=== PATIENT | female | born 1985 | race Hispanic/Latino ===

== ENCOUNTER 2022-06-07 19:40 | Emergency (ER) | payer BC, SELFPAY ==
--- NOTE | ~2022-06-07 | US_ITS ---
Pelvic ultrasound. Clinical History: First trimester , pelvic pain Technique: Realtime transabdominal and transvaginal scanning of the pelvis was performed. Color flow Doppler and Doppler spectral analysis were performed. Findings: The uterus is anteverted. The endometrial stripe has a thickness of 22 mm. No intrauterine gestational sac is identified. Possible heterogeneous fluid in the cervix. The right ovary measures 2.5 x 2.4 x 2.0 cm. No significant right ovarian or adnexal mass is seen. The left ovary is not visualized. No significant left ovarian or adnexal mass is seen. There is no evidence of free fluid in the cul de sac. Impression: Positive test without intrauterine gestation. Differential diagnosis includes early normal , spontaneous , or nonvisualized ectopic . Correlate clinically. Continued follow up with serial beta hCG, and repeat ultrasound as warranted, is advised. Reviewed, dictated and finalized at [facility]. PHALOGRAPHER Impression: Positive test without intrauterine gestation. Differential diagnosis includes early normal , spontaneous , or nonvisualized ectopic . Correlate clinically. Continued follow up with serial beta hCG, and repeat ultrasound as warranted, is advised.
[2022-06-07 20:05] VITALS: BP 170/90; PULSE 83; RESP 20; TEMP 36.4; O2SAT 100
[2022-06-07 20:54] LABS: Basophils Percent Auto 0.4 % (0.2-1.2); Eosinophils Absolute Auto 0.7 K/mm3 (0-0.3); Eosinophils Percent Auto 6.9 % (0-4.4); Hematocrit 39.9 % (37.0-47.0); Hemoglobin 13.7 g/dL (12.0-15.0); Immature Granulocyte Absolute 0.05 K/mm3 (0.00-0.031); Immature Granulocyte Percent A 0.5 % (0-0.5); Lymphocytes Absolute Auto 2.51 K/mm3 (0.9-3.2); Lymphocytes Percent Auto 25.6 % (18.3-44.2); Mean Corpuscular HGB Conc 34.3 g/dl (32-36); Mean Corpuscular Hemoglobin 32.1 pg (26-34); Mean Corpuscular Volume 93.4 fl (80-100); Mean Platelet Volume 9.7 fl (7.4-10.4); Monocytes Absolute Auto 0.7 K/mm3 (0.1-0.6); Monocytes Percent Auto 7.1 % (2.6-8.5); Neutrophils Absolute Auto 5.8 K/mm3 (1.3-6.7); Neutrophils Percent Auto 59.5 % (45.5-73.1); Platelet Count Result 305 k/mm3 (150-375); Red Blood Count 4.27 M/mm3 (4.2-5.4); Red Cell Distribution Width 12.2 % (11.5-14.5); White Blood Count 9.8 K/mm3 (4.5-10.0)
--- NOTE | 2022-06-08 00:30 | PC.NURSE ---
pt states she is approx 6-7 weeks preg and his having spotting since yesterday but worse today. states she had abd pain and lower back pain block captain but has now subsided. a0
[2022-06-08 01:30] VITALS: BP 146/85; PULSE 76; RESP 16; O2SAT 98
--- NOTE | 2022-06-08 01:48 | ED.GENADULT ---
HPI - General Adult General Chief complaint: Vaginal Bleeding Stated complaint: 7 weeks preg, vaginal bleeding Time Seen by Provider: 06/08/22 00:37 History of Present Illness HPI narrative: Patient 36-year-old female who presents the emergency department with chief complaint of vaginal bleeding. Patient reports that she is approximately 6 to 8 weeks and reported that she started having vaginal bleeding. The patient states she has cramping throughout the abdomen reports her bleeding started yesterday but has gradually worsened today the patient reports no clots and no passage of tissue. Patient reports this is her fourth at the 3 others being full-term deliveries. Related Data Allergies Allergy/AdvReac Type Severity Reaction Status Date / Time No Known Allergies Allergy Unverified 03/13/14 22:24 Review of Systems Review of Systems: A 10 system review of systems was completed on the patient and is negative except for what is stated in the HPI. Nursing and ancillary documentation was reviewed. Exam Narrative: GENERAL: Well-appearing, well-nourished, and in no acute distress. HEAD: Normocephalic, atraumatic. EYES: PERRLA and EOMI. ENT: Nares clear, no rhinorrhea or epistaxis. Mucous membranes moist. NECK: Supple. CHEST: Clear to auscultation. No respiratory distress. HEART: Regular rate and rhythm. No murmur heard. Normal peripheral pulses. ABDOMEN: Soft, nontender, nondistended, normal active bowel sounds. EXTREMITIES: Normal range of motion. No edema. SKIN: Warm, dry, no rash. NEURO: No focal deficits. Alert and oriented x3. PSYCH: Normal mood and affect. Course Vital Signs Vital signs: Vital Signs Temperature 36.4 C L 06/07/22 20:05 Pulse Rate 83 06/07/22 20:05 Respiratory Rate 20 06/07/22 20:05 Blood Pressure 170/90 H 06/07/22 20:05 Pulse Oximetry 100 06/07/22 20:05 Temperature 36.4 C L 06/07/22 20:05 Pulse Rate 83 06/07/22 20:05 Respiratory Rate 20 06/07/22 20:05 Blood Pressure 170/90 H 06/07/22 20:05 Pulse Oximetry 100 06/07/22 20:05 Medical Decision Making [facility] Narrative Medical decision making narrative: Differential diagnosis includes threatened AB, ectopic, missed AB Laboratory studies were obtained which showed an Rh+ blood test quantitative hCG was 1047.4 hemoglobin is 13.7. Ultrasound has been ordered to rule out for ectopic . Ultrasound showed thickened endometrium with no intrauterine noted. There was no obvious ectopic on the CT scan but follow-up with serial hCGs was recommended Vital Signs Vital Signs: Vital Signs Temperature 36.4 C L 06/07/22 20:05 Pulse Rate 83 06/07/22 20:05 Respiratory Rate 20 06/07/22 20:05 Blood Pressure 170/90 H 06/07/22 20:05 Pulse Oximetry 100 06/07/22 20:05 Temperature 36.4 C L 06/07/22 20:05 Pulse Rate 83 06/07/22 20:05 Respiratory Rate 20 06/07/22 20:05 Blood Pressure 170/90 H 06/07/22 20:05 Pulse Oximetry 100 06/07/22 20:05 Lab Data 06/07/22 20:38 Labs: Lab Results 06/07/22 06/07/22 06/07/22 Range/Units 20:37 20:37 20:38 WBC 9.8 (4.5-10.0) K/mm3 RBC 4.27 (4.2-5.4) M/mm3 Hgb 13.7 (12.0-15.0) g/dL Hct 39.9 (37.0-47.0) % MCV 93.4 (80-100) fl MCH 32.1 (26-34) pg MCHC 34.3 (32-36) g/dl RDW 12.2 (11.5-14.5) % Plt Count 305 (150-375) k/mm3 MPV 9.7 (7.4-10.4) fl Immature Gran % (Auto) 0.5 (0-0.5) % Neut % (Auto) 59.5 (45.5-73.1) % Lymph % (Auto) 25.6 (18.3-44.2) % Falls % (Auto) 7.1 (2.6-8.5) % Eos % (Auto) 6.9 H (0-4.4) % Baso % (Auto) 0.4 (0.2-1.2) % Lymph # (Auto) 2.51 (0.9-3.2) K/mm3 Falls # (Auto) 0.7 H (0.1-0.6) K/mm3 Eos # (Auto) 0.7 H (0-0.3) K/mm3 Baso # (Auto) 0.0 (0.0-0.1) K/mm3 Abs Immat Gran (auto) 0.05 H (0.00-0.031) K/mm3 Absolute Neuts (auto) 5.8 (1.3-6.7) K/mm3 Absolute Nucleated R
[2022-06-08 03:15] VITALS: BP 135/86; PULSE 86; RESP 16; O2SAT 97
== END 2022-06-08 03:15 | disposition home or self-care (01) ==
PROVIDERS: Emergency Provider Emergency Medicine
DX: O20.0 Threatened abortion (principal); Z3A.00 Weeks of gestation of pregnancy not specified
CPT/HCPCS: 36415; 76801; 76817; 84702; 85025; 85461; 86850; 86900; 86901; 99284

== ENCOUNTER 2023-05-30 12:08 | Emergency (ER) | payer BC, SELFPAY ==
--- NOTE | ~2023-05-30 | US_ITS ---
EXAMINATION: US OB <=14 wk fetus w TV DATE: 05/30/2023 14:38 INDICATION: viability assessment during first trimester TECHNIQUE: Real-time pelvic transabdominal and transvaginal ultrasound was performed. COMPARISON: None. FINDINGS: The uterus measures 11.0 x 5.4 x 6.0 cm. No intrauterine gestational sac is identified. The endometrial thickness measures 1.3 cm. There are possible products of conception in the endocervical canal. The right ovary measures 2.7 x 1.5 x 1.5 cm. The left ovary measures 2.8 x 1.5 x 1.5 cm. Ther e is normal vascular flow in the ovaries. There is no free fluid in the pelvis. IMPRESSION: 1. of unknown location with possible in progress. Although no intrauterine gestati onal sac is seen, this may be due to early gestation. If the patient is clinically stable, recommend followup with serial beta-hCG and ultrasound. Reviewed, dictated and finalized at [facility] IMPRESSION: 1. of unknown location with possible in progress. Although n o intrauterine gestational sac is seen, this may be due to early gestation. If the patient is clinically stable, recommend followup with serial beta-hCG and u ltrasound.
[2023-05-30 12:15] VITALS: BP 158/89; PULSE 86; RESP 20; TEMP 36.4; O2SAT 99
[2023-05-30 12:58] LABS: Basophils Percent Auto 0.3 % (0.2-1.2); Eosinophils Absolute Auto 0.7 K/mm3 (0-0.3); Eosinophils Percent Auto 5.7 % (0-4.4); Hematocrit 38.8 % (37.0-47.0); Hemoglobin 13.3 g/dL (12.0-15.0); Immature Granulocyte Absolute 0.03 K/mm3 (0.00-0.031); Immature Granulocyte Percent A 0.3 % (0-0.5); Lymphocytes Absolute Auto 2.62 K/mm3 (0.9-3.2); Lymphocytes Percent Auto 22.9 % (18.3-44.2); Mean Corpuscular HGB Conc 34.3 g/dl (32-36); Mean Corpuscular Hemoglobin 32.7 pg (26-34); Mean Corpuscular Volume 95.3 fl (80-100); Mean Platelet Volume 9.8 fl (7.4-10.4); Monocytes Absolute Auto 0.8 K/mm3 (0.1-0.6); Monocytes Percent Auto 6.9 % (2.6-8.5); Neutrophils Absolute Auto 7.3 K/mm3 (1.3-6.7); Neutrophils Percent Auto 63.9 % (45.5-73.1); Platelet Count Result 306 k/mm3 (150-375); Red Blood Count 4.07 M/mm3 (4.2-5.4); Red Cell Distribution Width 11.9 % (11.5-14.5); White Blood Count 11.5 K/mm3 (4.5-10.0)
[2023-05-30 13:03] LABS: INR 0.9; Partial Thromboplastin Time 27.9 SECONDS (22.3-36.8); Prothrombin Time 12.8 Seconds (11.1-14.7)
[2023-05-30 13:15] LABS: Alanine Aminotransferase 29 U/L (6-35); Albumin Level 4.8 g/dL (3.5-5.1); Alkaline Phosphatase 88 U/L (38-126); Anion Gap 8 mmol/L (8-16); Aspartate Amino Transferase 38 U/L (14-36); Bilirubin,Total 0.7 mg/dL (0.2-1.3); Blood Urea Nitrogen 8 mg/dL (7-17); Calcium 9.9 mg/dL (8.4-10.2); Carbon Dioxide 25 mmol/L (22-30); Chloride 102 mmol/L (98-107); Estimated Glomerular Filt Rate > 60; Glucose 137 mg/dL (65-110); Sodium 135 mmol/L (137-145)
--- NOTE | 2023-05-30 13:29 | ED.FEMALEGU ---
HPI - Female Genitourinary General Chief complaint: Vaginal Bleeding Stated complaint: , bleeidng, cramps Time Seen by Provider: 05/30/23 13:28 Source: patient History of Present Illness HPI Narrative: 37 years old female came to the emergency room by private car complaining of vaginal bleeding it started this morning. Patient is telling me that she is 10 weeks , 5 para 3 1. Her OBGYN at [facility] Related Data Allergies Allergy/AdvReac Type Severity Reaction Status Date / Time No Known Allergies Allergy Verified 05/30/23 12:21 Review of Systems Review of Systems: All systems reviewed & are unremarkable except as noted in HPI and below Exam Narrative: General appearance: Well-developed, well-nourished Skin: Normal color Head: Normocephalic, nontraumatic Eyes: Clear conjunctiva ENT: Oropharynx normal, ears normal, nose normal Neck: Supple, nontender Chest and respiratory: Airway patent, no respiratory distress, no accessory muscle use Heart: Regular rate/rhythm Abdomen: Soft, nontender, no organomegaly, quiet bowel sounds Vascular: Normal peripheral pulses, normal capillary refill. Musculoskeletal: Normal range of motion, nontender back Neurologic: Alert and oriented ?3, PERSONAL INJUR[employer] SPECIALIST is normal as tested, no gross motor deficit Pelvic exam showed small blood clots, no active bleeding, open cervix Course Vital Signs Vital signs: Vital Signs Temperature 36.4 C 05/30/23 12:15 Pulse Rate 86 05/30/23 12:15 Respiratory Rate 20 05/30/23 12:15 Blood Pressure 158/89 H 05/30/23 12:15 Pulse Oximetry 99 05/30/23 12:15 Oxygen Delivery Room Air 05/30/23 12:15 Temperature 36.4 C 05/30/23 12:15 Pulse Rate 86 05/30/23 12:15 Respiratory Rate 20 05/30/23 12:15 Blood Pressure 158/89 H 05/30/23 12:15 Pulse Oximetry 99 05/30/23 12:15 Oxygen Delivery Room Air 05/30/23 12:15 MDM - Female Genitourinary Lab Data 05/30/23 12:43 05/30/23 12:43 Labs: Lab Results 05/30/23 Range/Units 12:43 WBC 11.5 H (4.5-10.0) K/mm3 RBC 4.07 L (4.2-5.4) M/mm3 Hgb 13.3 (12.0-15.0) g/dL Hct 38.8 (37.0-47.0) % MCV 95.3 (80-100) fl MCH 32.7 (26-34) pg MCHC 34.3 (32-36) g/dl RDW 11.9 (11.5-14.5) % Plt Count 306 (150-375) k/mm3 MPV 9.8 (7.4-10.4) fl Immature Gran % (Auto) 0.3 (0-0.5) % Neut % (Auto) 63.9 (45.5-73.1) % Lymph % (Auto) 22.9 (18.3-44.2) % Morrill % (Auto) 6.9 (2.6-8.5) % Eos % (Auto) 5.7 H (0-4.4) % Baso % (Auto) 0.3 (0.2-1.2) % Lymph # (Auto) 2.62 (0.9-3.2) K/mm3 Morrill # (Auto) 0.8 H (0.1-0.6) K/mm3 Eos # (Auto) 0.7 H (0-0.3) K/mm3 Baso # (Auto) 0.0 (0.0-0.1) K/mm3 Abs Immat Gran (auto) 0.03 (0.00-0.031) K/mm3 Absolute Neuts (auto) 7.3 H (1.3-6.7) K/mm3 Absolute Nucleated RBC 0.0 (0.0-0.012) K/mm3 Nucleated RBC % 0.0 (0.0-0.2) % PT 12.8 (11.1-14.7) Seconds INR 0.9 APTT 27.9 (22.3-36.8) SECONDS Sodium 135 L (137-145) mmol/L Potassium 4.0 (3.4-5.0) mmol/L Chloride 102 (98-107) mmol/L Carbon Dioxide 25 (22-30) mmol/L Anion Gap 8 (8-16) mmol/L BUN 8 (7-17) mg/dL Creatinine 0.50 L (0.7-1.0) mg/dL Estim Creat Clear Calc Not Reportable Estimated GFR > 60 (59 - ) Glucose 137 H (65-110) mg/dL Calcium 9.9 (8.4-10.2) mg/dL Total Bilirubin 0.7 (0.2-1.3) mg/dL AST 38 H (14-36) U/L ALT 29 (6-35) U/L Alkaline Phosphatase 88 (38-126) U/L Total Protein 9.0 H (6.3-8.2) g/dL Albumin 4.8 (3.5-5.1) g/dL Beta HCG, Quant 1634.10 mIU/ML Blood Type O Positive Antibody Screen Negative Screen Not Reportable Baby'
[2023-05-30 17:50] VITALS: BP 140/90; PULSE 90; RESP 16; O2SAT 98
== END 2023-05-30 17:50 | disposition home or self-care (01) ==
PROVIDERS: Emergency Medicine; Emergency Provider Emergency Medicine
DX: O03.9 Complete or unspecified spontaneous abortion without complication (principal)
CPT/HCPCS: 36415; 76801; 76817; 80053; 84702; 85025; 85461; 85610; 85730; 86850; 86900; 86901; 99284

== ENCOUNTER 2025-01-08 20:04 | Emergency (ER) | payer SELFPAY ==
--- NOTE | ~2025-01-08 | XR_ITS ---
Examination: XR chest 2V Clinical History: shortness of breath Comparison: 03/25/2014 Technique: PA and Lateral Findings: Cardiomediastinal silhouette normal size and configuration. Lungs clear. No acute bony abnormality. IMPRESSION: 1. No acute cardiopulmonary findings. Reviewed, dictated and finalized at location R.
--- OUTSIDE RECORDS SUMMARY | 2025-01-08 20:07 | XMS_ITS | Data Portability ---
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 Plan of Treatment Reminders Order Date Submit Date Provider Last Modified By Organization Details Last Modified Time Details Appointments ANY 2024 11:00A M Theresa Jason MD Not available Not available Not available Lab HbA1c (hemoglob in A1c), blood 2024 025 [facility], [address], [place], [address], 09/08/2024 07:13:00 lipid panel, serum 2024 025 [facility], [address], [place], [address], 09/08/2024 07:12:56 HIV-1 RNA, quantitat jn, PCR, serum or plasma 2024 025 [facility], [address], [place], [address], 09/05/2024 19:09:34 CMP, serum or plasma 2024 025 [facility], [address], [place], [address], 09/08/2024 07:12:58 chlamydia trachomat is + neisseria gonorrhoe ae + trichomon as vaginalis rRNA panel, ARLET+probe 2024 025 [facility]ERR[facility]INA Sandy, [address], [place], [address], 09/08/2024 07:12:55 Hepatitis C IgG Ab, qual, serum 2024 025 GUERRERO Sandy, [address], [place], [address], 09/08/2024 07:12:54 RPR (rapid plasma reagin), serum 2024 025 [facility]ERRERO Sandy, [address], [place], [address], 09/08/2024 07:13:01 cd4 T-cells, blood 2024 025 [facility]ERR[facility] Sandy, [address], [place], [address], 09/08/2024 07:12:59 HIV-1 RNA, quantitat jn, PCR, serum or plasma 2023 025 [facility] Sandy, [address], [place], [address], 08/26/2024 13:11:23 CMP, serum or plasma 2023 025 [facility] Sandy, [address], [place], [address], 08/25/2024 15:10:59 Hepatitis C IgG Ab, qual, serum 2023 025 [facility]ERR[facility] Sandy, [address], [place], [address], 08/25/2024 15:10:58 RPR (rapid plasma reagin), serum 2023 025 [facility]ERR[facility] Sandy, [address], [place], [address], 08/25/2024 15:11:02 cd4 T-cells, blood 2023 025 [facility], [address], [place], [address], 08/25/2024 15:11:00 hepatitis B surface Ab, quantitat jn, serum 2023 025 [facility], [address], [place], [address], 08/25/2024 15:11:01 HIV-1 RNA, quantitat jn, PCR, serum or plasma 2023 024 [facility], [address], [place], [address], 04/01/2024 06:13:49 chlamydia trachomat is + neisseria gonorrhoe ae + trichomon as vaginalis DNA panel, ARLET+probe , unspecifi ed specimen 2023 024 [facility], [address], [place], [address], 03/31/2024 20:08:06 RPR (rapid plasma reagin), serum 2023 024 [facility] Allen, [address], [place], [address], 03/31/2024 20:08:09 CMP, serum or plasma 2023 024 [facility] Allen, [address], [place], [address], 03/31/2024 20:08:07 Hepatitis C IgG Ab, qual, serum 2023 024 [facility] Allen, [address], [place], [address], 03/31/2024 20:08:05 Mycobacte rium tuberculo sis stimulate d gamma interfero n, qual, blood 2023 024 [facility], [address], [place], [address], 04/01/2024 17:07:10 influenza virus A + B and SARS CoV 2, QL, ARLET+probe , respirato ry specimen 2023 024 [facility], [address], [place], [address], 09/26/2023 14:47:50 HCG, intact + beta subunit, quant, serum or plasma 2023 024 [facility], [address], [place], [address], 06/04/2023 08:23:10 CBC w/ auto diff 2023 024 [facility], [address], [place], [address], 06/04/2023 08:23:11 Referral None recorded. Procedures None recorded. Surgeries None recorded. Imaging None recorded. Medication Orders Biktarvy 50 mg-200 mg-25 mg tablet 2024 025 [id number], [address], [place], [place], [id number], 09/04/2024 13:41:35 Biktarvy 50 mg-200 mg-25 mg tablet 2023 024 [facility][id number], [address], [place], [place], [id number], 11/06/2023 15:43:44 ciproflox acin 0.3 %-dexamet hasone 0.1 % ear drops,santino pension 2023 024 [facility]96706, [address], [place], [place], [id number], 11/06/2023 15:34:38 pseudoeph edrine 60 mg tablet 2023 024 [facility] #[id number], [address], [place], [place], [id number], 11/06/2023 15:34:47 Patient Targets Encounter Date Encounter Id Patient Goals Patient Target Last Modified By Organization Details Last Modified Time 09/04/2023 [id number] Cipro HC Sudafed PRN Labs Follow up as previously scheduled oajao Not available 09/04/2023 15:11:01 Patient Instructions Encounter Date Encounter Id Patient Instructions Last Modified By Organization Details Last Modified Time 06/03/2023 [id number] On the date of t his encounter, I was immediately available to assist the resident/fellow in the care of the patient, and have reviewed and agree with the resident s findings and plan of care. ~MD Yanelis [email or web address] Not available 06/10/2023 14:35:49 11/06/2023 [id number] S ndrome de inmunodeficiencia adquirida (sida): instrucciones de cuidado - [acquired immunodeficiency syndrome (AIDS): care instructions] oajao Not available 11/06/2023 15:42:46 Continue Biktarv y Labs in February, Follow up in March, oajao Not available 11/06/2023 16:01:56 Compliance was discussed oajao Not available 11/06/2023 16:02:15 04/06/2024 [id number] Labs in July, 025 Follow up in Aug, 2024 oajao Not available 04/06/2024 12:26:54 Compliance and r isk counseling were discussed oajao Not available 04/06/2024 12:46:09 09/04/2024 [id number] D/C summary from [facility] Continue Biktarvy Heplisav series Follow up in 5 months oajao Not available 09/04/2024 10:35:56 Reason for Referral None Reported. Results Created Date Observation Date Name Description Value Unit Range Abnormal Flag Note LastModifiedBy Organization Detail LastModifiedTime 05/10/19 24 05/10/2023 CBC WITH DIFFE RENTI AL/PL ATELE T WBC 7.6 x10e3 /uL 3.4-10 .8 Not Available [facility] ([facility]) [address] [facility], [place], [address], 05/11/2023 06:26:13 05/10/19 24 05/10/2023 CBC WITH DIFFE RENTI AL/PL ATELE T RBC 4.07 x10e6 /uL 3.77-5 .28 Not Available [facility] ([facility]) [address] [place], [address], 05/11/2023 06:26:13 05/10/19 24 05/10/2023 CBC WITH DIFFE RENTI AL/PL ATELE T hemoglobin 13.3 g/dL 11.1-1 5.9 Not Available [facility] ([facility]) [address] [place], [address], 05/11/2023 06:26:13 05/10/19 24 05/10/2023 CBC WITH DIFFE RENTI AL/PL ATELE T hematocrit 38.1 % 34.0-4 6.6 Not Available [facility] ([facility]) [address] [place], [address], 05/11/2023 06:26:13 05/10/19 24 05/10/2023 CBC WITH DIFFE RENTI AL/PL ATELE T MCV 94 fL 79-97 Not Available [facility] ([facility]) [address] [place], [address], 05/11/2023 06:26:13 05/10/19 24 05/10/2023 CBC WITH DIFFE RENTI AL/PL ATELE T MCH 32.7 pg 26.6-3 3.0 Not Available [facility] ([facility]) [address] [place], [address], 05/11/2023 06:26:13 05/10/19 24 05/10/2023 CBC WITH DIFFE RENTI AL/PL ATELE T MCHC 34.9 g/dL 31.5-3 5.7 Not Available [facility] ([facility]) [address] [facility], [place], [address], 05/11/2023 06:26:13 05/10/19 24 05/10/2023 CBC WITH DIFFE RENTI AL/PL ATELE T RDW 11.6 % 11.7-1 5.4 below low normal Not Available [facility] ([facility]) [address] [place], [address], 05/11/2023 06:26:13 05/10/19 24 05/10/2023 CBC WITH DIFFE RENTI AL/PL ATELE T platelets 262 x10e3 /uL 150-45 0 Not Available [facility] ([facility]) [address] [facility], [place], [address], 05/11/2023 06:26:13 05/10/19 24 05/10/2023 CBC WITH DIFFE RENTI AL/PL ATELE T neutrophils 56 % notest ab. Not Available [facility] ([facility]) [address] [place], [address], 05/11/2023 06:26:13 05/10/19 24 05/10/2023 CBC WITH DIFFE RENTI AL/PL ATELE T lymphs 26 % notest ab. Not Available [facility] ([facility]) [address] [place], [address], 05/11/2023 06:26:13 05/10/19 24 05/10/2023 CBC WITH DIFFE RENTI AL/PL ATELE T monocytes 8 % notest ab. Not Available [facility] ([facility]) [address] [place], [address], 05/11/2023 06:26:13 05/10/19 24 05/10/2023 CBC WITH DIFFE RENTI AL/PL ATELE T eos 10 % notest ab. Not Available [facility] ([facility]) [address] [place], [address], 05/11/2023 06:26:13 05/10/19 24 05/10/2023 CBC WITH DIFFE RENTI AL/PL ATELE T basos 0 % notest ab. Not Available [facility] ([facility]) [address] [place], [address], 05/11/2023 06:26:13 05/10/19 24 05/10/2023 CBC WITH DIFFE RENTI AL/PL ATELE T neutrophils (absolute) 4.2 x10e3 /uL 1.4-7. 0 Not Available [facility] ([facility]) [address] [place], [address], 05/11/2023 06:26:13 05/10/19 24 05/10/2023 CBC WITH DIFFE RENTI AL/PL ATELE T lymphs (absolute) 2.0 x10e3 /uL 0.7-3. 1 Not Available [facility] ([facility]) [address] [place], [address], 05/11/2023 06:26:13 05/10/19 24 05/10/2023 CBC WITH DIFFE RENTI AL/PL ATELE T monocytes(ab solute) 0.6 x10e3 /uL 0.1-0. 9 Not Available [facility] ([facility]) [address] [place], [address], 05/11/2023 06:26:13 05/10/19 24 05/10/2023 CBC WITH DIFFE RENTI AL/PL ATELE T eos (absolute) 0.8 x10e3 /uL 0.0-0. 4 above high normal Not Available [facility] ([facility]) [address] [place], [address], 05/11/2023 06:26:13 05/10/19 24 05/10/2023 CBC WITH DIFFE RENTI AL/PL ATELE T baso (absolute) 0.0 x10e3 /uL 0.0-0. 2 Not Available [facility] ([facility]) [address] [facility], [place], [address], 05/11/2023 06:26:13 05/10/19 24 05/10/2023 CBC WITH DIFFE RENTI AL/PL ATELE T immature granulocytes 0 % notest ab. Not Available [facility] ([facility]) [address] [facility], [place], [address], 05/11/2023 06:26:13 05/10/19 24 05/10/2023 CBC WITH DIFFE RENTI AL/PL ATELE T immature grans (abs) 0.0 x10e3 /uL 0.0-0. 1 Not Available [facility] ([facility]) [address] [facility], [place], [address], 05/11/2023 06:26:13 05/10/19 24 05/11/2023 RNA, REAL TIME PCR (NON- GRAPH ) HIV-1 RNA by PCR <20 copie s/mL HIV-1 RNA not detec sanjeev The repor table range for this assay is 20 to 10,00 0,000 copie s HIV-1 RNA/m L. Not Available [facility] ([facility]) [address] [facility], [place], [address], 05/11/2023 19:09:32 05/10/19 24 05/11/2023 RNA, REAL TIME PCR (NON- GRAPH ) log10 HIV-1 RNA TNP log10 copy/ mL Unabl e to calcu late resul t since non-n umeri c resul t obtai delgado for compo nent test. Not Available [facility] ([facility]) [address] [facility], [place], [address], 05/11/2023 19:09:32 05/13/19 24 05/13/2023 influ tarsha virus A + B + SARS- CoV-2 (COVI D19) Ag panel , rapid IA, upper respi rator y speci men Flu A negati ve Not Available In-Office Order Internal Use Only DO Not Attach Compendium DO Not Attach Compendium, Do Not Delete/merge, 05/13/2023 12:47:18 05/13/19 24 05/13/2023 influ tarsha virus A + B + SARS- CoV-2 (COVI D19) Ag panel , rapid IA, upper respi rator y speci men Flu B negati ve Not Available In-Office Order Internal Use Only DO Not Attach Compendium DO Not Attach Compendium, Do Not Delete/merge, 05/13/2023 12:47:18 05/13/19 24 05/13/2023 influ tarsha virus A + B + SARS- CoV-2 (COVI D19) Ag panel , rapid IA, upper respi rator y speci men Rapid SARS CoV 2 Ag, QL IA, respiratory specimen negati ve Not Available In-Office Order Internal Use Only DO Not Attach Compendium DO Not Attach Compendium, Do Not Delete/merge, 05/13/2023 12:47:18 05/13/1905/13/2023 urina lysis , dipst ick Leukocytes Small Not Available In-Offi ce Order Internal Use Only DO Not Attach Compendium DO Not Attach Compendium, Do Not Delete/merge, 05/13/2023 12:12:26 05/13/1905/13/2023 urina lysis , dipst ick Nitrite negati ve Not Available In-Office Order Internal Use Only DO Not Attach Compendium DO Not Attach Compendium, Do Not Delete/merge, 05/13/2023 12:12:26 05/13/1905/13/2023 urina lysis , dipst ick Urobilinogen .2 Not Available In-Of fice Order Internal Use Only DO Not Attach Compendium DO Not Attach Compendium, Do Not Delete/merge, 05/13/2023 12:12:26 05/13/19 24 05/13/2023 urina lysis , dipst ick Protein Negati ve Not Available In-Office Order Internal Use Only DO Not Attach Compendium DO Not Attach Compendium, Do Not Delete/merge, 05/13/2023 12:12:26 05/13/19 24 05/13/2023 urina lysis , dipst ick pH 7.0 Not Available In-Office Order Internal Use Only DO Not Attach Compendium DO Not Attach Compendium, Do Not Delete/merge, 05/13/2023 12:12:26 05/13/19 24 05/13/2023 urina lysis , dipst ick Blood Non-He molyze d: Trace Not Available In-Office Order Internal Use Only DO Not Attach Compendium DO Not Attach Compendium, Do Not Delete/merge, [id number] 05/13/2023 12:12:26 05/13/19 24 05/13/2023 urina lysis , dipst ick Specific Dixon 1.020 Not Available In-Off ice Order Internal Use Only DO Not Attach Compendium DO Not Attach Compendium, Do Not Delete/merge, [id number] 05/13/2023 12:12:26 05/13/19 24 05/13/2023 urina lysis , dipst ick Ketone Negati ve Not Available In-Office Order Internal Use Only DO Not Attach Compendium DO Not Attach Compendium, Do Not Delete/merge, 05/13/2023 12:12:26 05/13/19 24 05/13/2023 urina lysis , dipst ick Bilirubin Negati ve Not Available In-Office Order Internal Use Only DO Not Attach Compendium DO Not Attach Compendium, Do Not Delete/merge, 05/13/2023 12:12:26 05/13/19 24 05/13/2023 urina lysis , dipst ick Glucose Negati ve Not Available In-Office Order Internal Use Only DO Not Attach Compendium DO Not Attach Compendium, Do Not Delete/merge, [id number] 05/13/2023 12:12:26 05/13/19 24 05/13/2023 pregn melania test, urine HCG positi ve Not Available In-Office Order Internal Use Only DO Not Attach Compendium DO Not Attach Compendium, Do Not Delete/merge, [id number] 05/13/2023 12:12:14 05/14/19 24 05/16/2023 INTER PRETA TION: interpretati on: Commen t Not infec sanjeev with HCV unles s early or acute infec tion is suspe cted (whic h may be delay ed in an immun ocomp romis ed indiv idual ), or other evide nce exist s to indic ate HCV infec tion. Not Available [facility] ([facility] ) [address], [place], [address], 06/05/2023 20:09:29 05/14/19 24 05/15/2023 PREGN MELANIA, INITI AL SCREE N RPR Non Reacti ve nonrea ctive Not Available [facility] ([facility]) [address] [place], [address], 06/05/2023 20:09:29 05/14/19 24 05/15/2023 PREGN MELANIA, INITI AL SCREE N rubella antibodies, IgG <0.90 index immune >0.99 below low normal Non-i mmune <0.90 Equiv ocal 0.90 - 0.99 Immun e >0.99 Not Available [facility] ([facility]) [address] [facility], [place], [address], 06/05/2023 20:09:29 05/14/19 24 05/15/2023 PREGN MELANIA, INITI AL SCREE N ABO grouping O Not Available [facility] ([facility]) [address] [place], [address], 06/05/2023 20:09:29 05/14/19 24 05/15/2023 PREGN MELANIA, INITI AL SCREE N Rh factor Positi ve Pleas e note: Prior recor ds for this patie nt's ABO / Rh type are not avail able for addit ional verif icati on. Not Available [facility] ([facility]) [address] [place], [address], 06/05/2023 20:09:29 05/14/19 24 05/15/2023 PREGN MELANIA, INITI AL SCREE N antibody screen Negati ve negati ve Not Available [facility] ([facility]) [address] [facility], [place], [address], 06/05/2023 20:09:29 05/14/19 24 05/15/2023 PREGN MELANIA, INITI AL SCREE N WBC 6.6 x10e3 /uL 3.4-10 .8 Not Available [facility] ([facility]) [address] [facility], [place], [address], 06/05/2023 20:09:29 05/14/19 24 05/15/2023 PREGN MELANIA, INITI AL SCREE N RBC 4.11 x10e6 /uL 3.77-5 .28 Not Available [facility] ([facility]) [address] [facility], [place], [address], 06/05/2023 20:09:29 05/14/19 24 05/15/2023 PREGN MELANIA, INITI AL SCREE N hemoglobin 13.3 g/dL 11.1-1 5.9 Not Available [facility] ([facility]) [address] [facility], [place], [address], 06/05/2023 20:09:29 05/14/19 24 05/15/2023 PREGN MELANIA, INITI AL SCREE N hematocrit 38.7 % 34.0-4 6.6 Not Available [facility] ([facility]) [address] [facility], [place], [address], 06/05/2023 20:09:29 05/14/19 24 05/15/2023 PREGN MELANIA, INITI AL SCREE N MCV 94 fL 79-97 Not Available [facility] ([facility]) [address] [place], [address], 06/05/2023 20:09:29 05/14/19 24 05/15/2023 PREGN MELANIA, INITI AL SCREE N MCH 32.4 pg 26.6-3 3.0 Not Available [facility] ([facility]) [address] [facility], [place], [address], 06/05/2023 20:09:29 05/14/19 24 05/15/2023 PREGN MELANIA, INITI AL SCREE N MCHC 34.4 g/dL 31.5-3 5.7 Not Available [facility] ([facility]) [address] [facility], [place], [address], 06/05/2023 20:09:29 05/14/19 24 05/15/2023 PREGN MELANIA, INITI AL SCREE N RDW 12.0 % 11.7-1 5.4 Not Available [facility] ([facility]) [address] [facility], [place], [address], 06/05/2023 20:09:29 05/14/19 24 05/15/2023 PREGN MELANIA, INITI AL SCREE N platelets 283 x10e3 /uL 150-45 0 Not Available [facility] ([facility]) [address] [facility], [place], [address], 06/05/2023 20:09:29 05/14/19 24 05/15/2023 PREGN MELANIA, INITI AL SCREE N neutrophils 46 % notest ab. Not Available [facility] ([facility]) [address] [place], [address], 06/05/2023 20:09:29 05/14/19 24 05/15/2023 PREGN MELANIA, INITI AL SCREE N lymphs 37 % notest ab. Not Available [facility] ([facility]) [address] [place], [address], 06/05/2023 20:09:29 05/14/19 24 05/15/2023 PREGN MELANIA, INITI AL SCREE N monocytes 7 % notest ab. Not Available [facility] ([facility]) [address] [facility], [place], [address], 06/05/2023 20:09:29 05/14/19 24 05/15/2023 PREGN MELANIA, INITI AL SCREE N eos 9 % notest ab. Not Available [facility] ([facility]) [address] [facility], [place], [address], 06/05/2023 20:09:29 05/14/19 24 05/15/2023 PREGN MELANIA, INITI AL SCREE N basos 1 % notest ab. Not Available [facility] ([facility]) [address] [facility], [place], [address], 06/05/2023 20:09:29 05/14/19 24 05/15/2023 PREGN MELANIA, INITI AL SCREE N neutrophils (absolute) 3.1 x10e3 /uL 1.4-7. 0 Not Available [facility] ([facility]) [address] [facility], [place], [address], 06/05/2023 20:09:29 05/14/19 24 05/15/2023 PREGN MELANIA, INITI AL SCREE N lymphs (absolute) 2.5 x10e3 /uL 0.7-3. 1 Not Available [facility] ([facility]) [address] [facility], [place], [address], 06/05/2023 20:09:29 05/14/19 24 05/15/2023 PREGN MELANIA, INITI AL SCREE N monocytes(ab solute) 0.4 x10e3 /uL 0.1-0. 9 Not Available [facility] ([facility]) [address] [facility], [place], [address], 06/05/2023 20:09:29 05/14/19 24 05/15/2023 PREGN MELANIA, INITI AL SCREE N eos (absolute) 0.6 x10e3 /uL 0.0-0. 4 above high normal Not Available [facility] ([facility]) [address] [facility], [place], [address], 06/05/2023 20:09:29 05/14/19 24 05/15/2023 PREGN MELANIA, INITI AL SCREE N baso (absolute) 0.0 x10e3 /uL 0.0-0. 2 Not Available [facility] ([facility]) [address] [facility], [place], [address], 06/05/2023 20:09:29 05/14/19 24 05/15/2023 PREGN MELANIA, INITI AL SCREE N immature granulocytes 0 % notest ab. Not Available [facility] ([facility]) [address] [facility], [place], [address], 06/05/2023 20:09:29 05/14/19 24 05/15/2023 PREGN MELAINA, INITI AL SCREE N immature grans (abs) 0.0 x10e3 /uL 0.0-0. 1 Not Available [facility] ([facility]) [address] [facility], [place], [address], 06/05/2023 20:09:29 05/14/19 24 05/15/2023 PREGN MELANIA, INITI AL SCREE N specific gravity 1.008 1.005- 1.030 Not Available [facility] ([facility]) [address] [place], [address], 06/05/2023 20:09:29 05/14/19 24 05/15/2023 PREGN MELANIA, INITI AL SCREE N pH 6.5 5.0-7. 5 Not Available [facility] ([facility]) [address] [place], [address], 06/05/2023 20:09:29 05/14/19 24 05/15/2023 PREGN MELANIA, INITI AL SCREE N urine-color Yellow yellow Not Available [facility] ([facility]) [address] [place], [address], 06/05/2023 20:09:29 05/14/19 24 05/15/2023 PREGN MELANIA, INITI AL SCREE N appearance Clear clear Not Available [facility] ([facility]) [address] [facility], [place], [address], 06/05/2023 20:09:29 05/14/19 24 05/15/2023 PREGN MELANIA, INITI AL SCREE N WBC esterase 3+ negati ve abnormal Not Available [facility] ([facility]) [address] [facility], [place], [address], 06/05/2023 20:09:29 05/14/19 24 05/15/2023 PREGN MELANIA, INITI AL SCREE N protein Negati ve negati ve/tra ce Not Available [facility] ([facility]) [address] [facility], [place], [address], 06/05/2023 20:09:29 05/14/19 24 05/15/2023 PREGN MELANIA, INITI AL SCREE N glucose Negati ve negati ve Not Available [facility] ([facility]) [address] [facility], [place], [address], 06/05/2023 20:09:29 05/14/19 24 05/15/2023 PREGN MELANIA, INITI AL SCREE N ketones Negati ve negati ve Not Available [facility] ([facility]) [address] [facility], [place], [address], 06/05/2023 20:09:29 05/14/19 24 05/15/2023 PREGN MELANIA, INITI AL SCREE N occult blood Negati ve negati ve Not Available [facility] ([facility]) [address] [place], [address], 06/05/2023 20:09:29 05/14/19 24 05/15/2023 PREGN MELANIA, INITI AL SCREE N bilirubin Negati ve negati ve Not Available [facility] ([facility]) [address] [facility], [place], [address], 06/05/2023 20:09:29 05/14/19 24 05/15/2023 PREGN MELANIA, INITI AL SCREE N urobilinogen ,semi-qn 0.2 mg/dL 0.2-1. 0 Not Available [facility] ([facility]) [address] [facility], [place], [address], 06/05/2023 20:09:29 05/14/19 24 05/15/2023 PREGN MELANIA, INITI AL SCREE N nitrite, urine Negati ve negati ve Not Available [facility] ([facility]) [address] [facility], [place], [address], 06/05/2023 20:09:29 05/14/19 24 05/15/2023 PREGN MELANIA, INITI AL SCREE N microscopic examination See below: Micro scopi c was indic ated and was perfo rmed. Not Available [facility] ([facility]) [address] [facility], [place], [address], 06/05/2023 20:09:29 05/14/19 24 05/16/2023 PREGN MELANIA, INITI AL SCREE N HBsAg screen Negati ve negati ve Not Available [facility] ([facility]) [address] [facility] [facility], [place], [address], 06/05/2023 20:09:29 05/14/19 24 05/16/2023 PREGN MELANIA, INITI AL SCREE N HCV Ab Non Reacti ve nonrea ctive Not Available [facility] ([facility]) [address] [facility], [place], [address], 06/05/2023 20:09:29 05/14/19 24 05/16/2023 PREGN EMLANIA, INITI AL SCREE N HIV Ab/P24 Ag screen Prelim inary Reacti ve Pleas e refer to the Final Inter preta tion. Resul ts react jn by HIV Antig en/An tibod y EIA must be confi rmed by the [facility] de[facility] indic ative of a true HIV infec tion. Not Available [facility] ([facility]) [address] [facility], [place], [address], 06/05/2023 20:09:29 05/14/19 24 05/16/2023 PREGN MELANIA, INITI AL SCREE N chlamydia trachomatis, ARLET Negati ve negati ve Not Available [facility] ([facility]) [address] [facility], [place], [address], 06/05/2023 20:09:29 05/14/19 24 05/16/2023 PREGN MELANIA, INITI AL SCREE N neisseria gonorrhoeae, ARLET Negati ve negati ve Not Available [facility] ([facility]) [address] [facility], [place], [address], 06/05/2023 20:09:29 05/14/19 24 05/16/2023 PREGN MELANIA, INITI AL SCREE N urine culture,pren atal, w/gbs Final report Not Available [facility] ([facility]) [address] [facility], [place], [address], 06/05/2023 20:09:29 05/14/19 24 05/15/2023 MICRO SCOPI C EXAMI NATIO N WBC 0-5 /hpf 0-5 Not Available [facility] ([facility]) [address] [facility], [place], [address], 06/05/2023 20:09:30 05/14/19 24 05/15/2023 MICRO SCOPI C EXAMI NATIO N RBC None seen /hpf 0-2 Not Available [facility] ([facility]) [address] [facility], [place], [address], 06/05/2023 20:09:30 05/14/19 24 05/15/2023 MICRO SCOPI C EXAMI NATIO N epithelial cells (non renal) 0-10 /hpf 0-10 Not Available [facility] ([facility]) [address] [facility], [place], [address], 06/05/2023 20:09:30 05/14/19 24 05/15/2023 MICRO SCOPI C EXAMI NATIO N casts None seen /lpf nonese en Not Available [facility] ([facility]) [address] [facility], [place], [address], 06/05/2023 20:09:30 05/14/19 24 05/15/2023 MICRO SCOPI C EXAMI NATIO N bacteria Few nonese en/few Not Available [facility] ([facility]) [address] [facility], [place], [address], 06/05/2023 20:09:30 05/14/19 24 06/05/2023 CYSTI C FIBRO SIS, 97 VARIA NTS ethnicity Commen t Not Provi ded Not Available [facility] ([facility]) [address] [facility], [place], [address], 06/05/2023 20:09:31 05/14/19 24 06/05/2023 CYSTI C FIBRO SIS, 97 VARIA NTS specimen type Commen t Whole Blood Not Available [facility] ([facility]) [address] [place], [address], 06/05/2023 20:09:31 05/14/19 24 06/05/2023 CYSTI C FIBRO SIS, 97 VARIA NTS indication Commen t Gricel er Test / Scree opal Not Available [facility] ([facility]) [address] [place], [address], 06/05/2023 20:09:31 05/14/19 24 06/05/2023 CYSTI C FIBRO SIS, 97 VARIA NTS result: Commen t NEGAT JN Not Available [facility] ([facility]) [address] [place], [address], 06/05/2023 20:09:31 05/14/19 24 06/05/2023 CYSTI C FIBRO SIS, 97 VARIA NTS interpretati on Commen t Negat jn Resul ts Disor ders (Gene ) Resul t Inter preta tion Cysti c fibro sis NEGAT JN This resul t reduc es, (CFTR ) but does not NM_00 0492. 4 elimi zhou, the risk to be a gricel er. Risk: At reduc ed risk for an affec sanjeev pregn melania. For ethni c-spe cific risk olivier ions see Infor hiral n Table . Not Available [facility] ([facility]) [address] [facility], [place], [address], 06/05/2023 20:09:31 05/14/19 24 06/05/2023 CYSTI C FIBRO SIS, 97 VARIA NTS recommendati ons Commen t Ailyn ic couns gopijose is recom alma d to discu ss the poten tial clini jasmina and/o r repro ducti ve impli catio ns of posit jn resul ts, as well as recom menda tions for testi ng famil y membe rs and, when appli cable , this indiv idual 's partn er. Ailyn ic couns alesia servi danitza are avail able. To acces s [facility] Ailyn ic Couns zoe bernard e visit [email or web address] :[email or web address] orp.c om/ge netic -coun fabrizio g or call [phone] LLS ([phone]). Not Available [facility] ([facility]) [address] [facility], [place], [address], 06/05/2023 20:09:31 05/14/19 24 06/05/2023 CYSTI C FIBRO SIS, 97 VARIA NTS additional clinicalinfo rmation Commen t Cysti c fibro sis (CF) is an autos omal reces sive disor belinda with varia ble sever ity and age at onset . Signs and sympt oms of class ic CF may inclu de eleva sanjeev sweat chlor ambrose level s, progr essiv e lung disea se, pancr eatic insuf ficie ncy, and male infer tilit y. Sympt oms of mild CF may inclu de pancr eatic suffi cienc y. Sympt oms of CFTR- relat ed disor ders may inclu de pancr eatit is, bronc hiect asis, and isola sanjeev male infer tilit y due to conge nital absen ce of the vas defer ens (CBAV D). Treat ment is dieta ry and suppo rtive . Genot ype-t arget ed thera pies may be avail able for some indiv idual s. In sever lyndsay affec sanjeev indiv idual s, lung trans plant ation may be indic ated. (Janet, PMID: 00973 428). Not Available [facility] ([facility]) [address] [facility], [place], [address], 06/05/2023 20:09:31 05/14/19 24 06/05/2023 CYSTI C FIBRO SIS, 97 VARIA NTS comments Commen t This inter preta tion is based on the clini jasmina infor matio n provi ded and the curre nt under stand ing of the molec ular ailyn ics of the disor belinda(s ) teste d. Infor matio n about the disor belinda(s ) teste d is avail able at [email or web address] :[email or web address] orp.c om. Not Available [facility] ([facility]) [address] [facility], [place], [address], 06/05/2023 20:09:31 05/14/19 24 06/05/2023 CYSTI C FIBRO SIS, 97 VARIA NTS methods/limi tations Commen t Next- gener ation Seque ncing : Genom ic regio ns of inter est in the CFTR gene are selec sanjeev using the [employer] ience s(R) hybri dizat ion captu re metho d and seque nced via the Illum jose(R ) next gener ation seque ncing platf orm. Seque ncing reads are align ed with the human genom e refer ence GRCh3 7/hg1 9 build . Regio ns of inter est inclu de genom ic regio ns encom passi ng betzaida pace varia nts. Jeniffer tical sensi tivit y at 30X cover age is estim ated to be >99% for singl e nucle otide varia nts, >99% for inser tions /elisa tions less than six base pairs and >96% for inser tions /elisa tions betwe en six and forty -five base pairs . Varia nt detec tion is perfo rmed by DANIELLE [facility] and in-ho use algor ithms . Confi rmato ry testi ng is done by Maco owen ncing . Varia nts are speci fied using the numbe ring and nomen clatu re recom alma d by the Human Genom e Varia tion Socie ty (HGVS , http: //www .hgvs .org/ ). Varia nt class ifica tion and confi rmati on are consi stent with ACMG stand ards and guide lines (Rich ards, PMID: [id number]; Daiana, PMID: 56115 774). Jeniffer sis is restr icted to 97 tarjason pace CF varia nts, liste d below . c.54- 5940_ 273+1 0250d el21k b, c.178 G>T (p.Gl u60*) , c.223 C>T (p.Ar g75*) , c.254 G>A (p.Gl y85Gl u), c.262 _263d elTT (p.Le u88Il efs*2 2), c.273 +1G>A , c.273 +3A>C , c.274 -1G>A , c.274 G>T (p.Gl u92*) , c.313 Saul (p.Il e105S erfs* 2), c.325 _327d elins G (p.Ty r109G lyfs* 4), c.349 C>T (p.Ar g117C ys), c.350 G>A (p.Ar g117H is), c.366 T>A (p.Ty r122* ), c.442 Saul (p.Il e148L eufs* 5), c.489 +1G>T , c.531 delT (p.Il e177M etfs* 12), c.532 G>A (p.Gl y178A rg), c.579 +1G>T , c.579 +5G>A , c.580 -1G>T , c.617 T>G (p.Le u206T rp), c.803 Saul (p.As n268I lefs* 17), c.805 _806d elAT (p.Il e269P rofs* 4), c.935 _937d elTCT (p.Ph e312d el), c.948 delT (p.Ph e316L eufs* 12), c.988 G>T (p.Gl y330* ), c.100 0C>T (p.Ar g334T rp), c.101 3C>T (p.Th r338I le), c.104 0G>A (p.Ar g347H is), c.104 0G>C (p.Ar g347P ro), c.105 5G>A (p.Ar g352G ln), c.[10 75C>A ;1079 C>A] (p.[G ln359 Devorah;T hr360 Devorah]) , c.115 5_115 6dupT A (p.As n386I lefs* 3), c.136 4C>A (p.Al a455G andria), c.143 8G>T (p.Gl y480C ys), c.147 7C>T (p.Gl n493* ), c.151 9_152 1delA TC (p.Il e507d el), c.152 1_152 3delC TT (p.Ph e508d el), c.154 5_154 6delT A (p.Ty r515* ), c.155 8G>T (p.Va l520P he), c.157 2C>A (p.Cy s524* ), c.158 5-1G> A, c.162 4G>T (p.Gl y542* ), c.164 6G>A (p.Se r549A sn), c.164 7T>G (p.Se r549A rg), c.165 2G>A (p.Gl y551A sp), c.165 4C>T (p.Gl n552* ), c.165 7C>T (p.Ar g553* ), c.167 5G>A (p.Al a559T hr), c.167 9G>C (p.Ar g560T hr), c.168 0-1G> A, c.172 1C>A (p.Pr o574H is), c.176 6+1G> A, c.176 6+5G> T, c.182 0_190 3del8 4 (p.Me t607_ Gln63 4del) , c.191 1delG (p.Gl n637H isfs* 26), c.192 3_193 1deli nsA (p.Se r641A rgfs* 5), c.197 3_198 5deli nsAGA AA (p.Ar g658L ysfs* 4), c.197 6delA (p.As n659I lefs* 4), c.201 2delT (p.Le u671* ), c.205 1_205 2deli nsG (p.Ly s684S erfs* 38), c.205 2delA (p.Ly s684A snfs* 38), c.205 2dupA (p.Gl n685T hrfs* 4), c.212 5C>T (p.Ar g709* ), c.212 8A>T (p.Ly s710* ), c.217 5dupA (p.Gl u726A rgfs* 4), c.229 0C>T (p.Ar g764* ), c.265 7+5G> A, c.266 8C>T (p.Gl n890* ), c.273 7_273 8insG (p.Ty r913* ), c.298 8G>A (p.Gl n996= ), c.298 8+1G> A, c.303 9delC (p.Ty r1014 Thrfs *9), c.306 7_307 2delA TAGTG (p.Il e1023 _Val1 024de l), c.319 6C>T (p.Ar g1066 Cys), c.326 6G>A (p.Tr p1089 *), c.327 6C>A (p.Ty r1092 *), c.327 6C>G (p.Ty r1092 *), c.330 2T>A (p.Me t1101 Devorah), c.345 4G>C (p.As p1152 His), c.347 2C>T (p.Ar g1158 *), c.348 4C>T (p.Ar g1162 *), c.352 8delC (p.Ly s1177 Serfs *15), c.353 6_353 9delC CAA (p.Th r1179 Asnfs *12), c.358 7C>G (p.Se r1196 *), c.361 1G>A (p.Tr p1204 *), c.365 9delC (p.Th r1220 Lysfs *8), c.371 2C>T (p.Gl n1238 *), c.371 8-247 7C>T, c.374 4delA (p.Ly s1250 Argfs *9), c.375 2G>A (p.Se r1251 Asn), c.376 4C>A (p.Se r1255 *), c.377 3dupT (p.Le u1258 Phefs *7), c.384 6G>A (p.Tr p1282 *), c.388 9dupT (p.Se r1297 Phefs *5), c.390 9C>G (p.As n1303 Devorah) Limit ation s: Techn ologi es used do not detec t germl ine mosai cism and do not rule out the prese nce of large chrom osoma l aberr ation s inclu ding rearr angem ents and gene fusio ns, or varia nts in regio ns or genes not inclu ded in this test, or possi ble inter /intr ageni c inter actio ns betwe en varia nts, or repea t expan sions . Varia nt class ifica tion and/o r inter preta tion may shepard e over time if more infor matio n becom es avail able. False posit jn or false negat jn resul ts may occur for reaso ns that inclu de: rare ailyn ic varia nts, sex chrom osome abnor malit ies, pseud ogene inter feren ce, blood trans fusio ns, bone marro w trans plant ation , somat ic or tissu e-spe cific mosai cism, misla beled sampl es, or sarah eous repre senta tion of famil y relat ionsh ips. This test was devel oped and its perfo rmanc e edilson cteri stics deter mined by [employer]. It has not been clear ed or appro ira by the Food and Drug Admin istra tion. Not Available [facility] ([facility]) [address] [facility], [place], [address], 06/05/2023 20:09:31 05/14/19 24 06/05/2023 CYSTI C FIBRO SIS, 97 VARIA NTS information table Commen t Cysti c fibro sis, 97 varia nts, risk reduc tions for indiv idual s with no famil y histo ry Popul ation Detec tion rate Pre-t est Post- test gricel er gricel er risk risk with negat jn resul t Afric an 81% 1 in 61 1 in 316 Ameri can Ashke nazi 97% 1 in 24 1 in 767 Jewis h 55% 1 in 94 1 in 208 Ameri can [place] 93% 1 in 25 1 in 343 Hispa mich 78% 1 in 58 1 in 260 Mixed or For couns eling other ethni c purpo ses, backg round consi belinda using the ethni c backg round with the most conse rvati ve risk estim ates. Not Available [facility] ([facility]) [address] [facility], [place], [address], 06/05/2023 20:09:31 05/14/19 24 06/05/2023 CYSTI C FIBRO SIS, 97 VARIA NTS references Commen t Kael ham JL, Farhana herbert C, Jennifer ng GR et al. CFTR varia nt testi ng: a techn ical stand timothy of the [facility] ge of Medic al Ailyn ics and Genom ics ([facility] ). Ailyn Med 22, 0864 (2020 ). PMID: [id number] Janet T, Bijan claudio SG, Kyler carrillo BA, et al. Cysti c Fibro sis and Conge nital Absen ce of the Vas Defer ens. 2000 [Upda sanjeev 2016May 10]. In: Juan MP, Umang parada HH, Luis Carlos RA, et al., janis rs. GeneR malra cruz(R) [Inte rnet] . PMID: [id number] 428 Not Available [facility] ([facility]) [address] [facility], [place], [address], 06/05/2023 20:09:31 05/14/19 24 06/05/2023 CYSTI C FIBRO SIS, 97 VARIA NTS director review/relea se Commen t [place] nent Type Perfo rmed At Labor atory Direc tor Techn ical Labor atory Anjen Chenn , compo nent, Corpo ratio n of , PhD proce [facility], [address] [place], [address] Techn ical Labor atory Anjen Chenn , compo nent, Corpo ratio n of , PhD jeniffer [facility], [address] , [place], [address] Profjasbir mays al Labor atory Anjen Tanian , compo nent Corpo ratio n of , PhD [facility], [address] , [place], [address] Jill romero relea sed by Rand Rico, PhD, [facility] Not Available [facility] ([facility]) [address] [facility], [place], [address], 06/05/2023 20:09:31 05/14/19 24 06/05/2023 CYSTI C FIBRO SIS, 97 VARIA NTS pdf . Not Available [facility] ([facility]) [address] [facility], [place], [address], 06/05/2023 20:09:31 05/14/19 24 05/17/2023 DRUG SCREE N 17 W/CON F, UR creatinine 36 mg/dL REFER ENCE RANGE : Ref Range >=20 Not Available [facility] ([facility]) [address] [place], [address], 06/05/2023 20:09:31 05/14/19 24 05/17/2023 DRUG SCREE N 17 W/CON F, UR ethanol biomarkers ia Negati ve NG/mL cutoff :500 Not Available [facility] ([facility]) [address] [place], [address], 06/05/2023 20:09:31 05/14/19 24 05/17/2023 DRUG SCREE N 17 W/CON F, UR amphetamines ia Negati ve NG/mL cutoff :300 Not Available [facility] ([facility]) [address] [place], [address], 06/05/2023 20:09:31 05/14/19 24 05/17/2023 DRUG SCREE N 17 W/CON F, UR barbiturates ia Negati ve NG/mL cutoff :200 Not Available [facility] ([facility]) [address] [place], [address], 06/05/2023 20:09:31 05/14/19 24 05/17/2023 DRUG SCREE N 17 W/CON F, UR benzodiazepi tan ia Negati ve NG/mL cutoff :50 Not Available [facility] ([facility]) [address] [place], [address], 06/05/2023 20:09:31 05/14/19 24 05/17/2023 DRUG SCREE N 17 W/CON F, UR cocaine metabolite ia Negati ve NG/mL cutoff :150 Not Available [facility] ([facility]) [address] [place], [address], 06/05/2023 20:09:31 05/14/19 24 05/17/2023 DRUG SCREE N 17 W/CON F, UR phencyclidin e ia Negati ve NG/mL cutoff :25 Not Available [facility] ([facility]) [address] [place], [address], 06/05/2023 20:09:31 05/14/19 24 05/17/2023 DRUG SCREE N 17 W/CON F, UR cannabinoids ia Negati ve NG/mL cutoff :20 Not Available [facility] ([facility]) [address] [place], [address], 06/05/2023 20:09:31 05/14/19 24 05/17/2023 DRUG SCREE N 17 W/CON F, UR 6-acetylmorp esther ia Negati ve NG/mL cutoff :10 Not Available [facility] ([facility]) [address] [place], [address], 06/05/2023 20:09:31 05/14/19 24 05/17/2023 DRUG SCREE N 17 W/CON F, UR opiate class ia Negati ve NG/mL cutoff :100 Not Available [facility] ([facility]) [address] [place], [address], 06/05/2023 20:09:31 05/14/19 24 05/17/2023 DRUG SCREE N 17 W/CON F, UR oxycodone class ia Negati ve NG/mL cutoff :100 Not Available [facility] ([facility]) [address] [place], [address], 06/05/2023 20:09:31 05/14/19 24 05/17/2023 DRUG SCREE N 17 W/CON F, UR methadone ia Negati ve NG/mL cutoff :100 Not Available [facility] ([facility]) [address] [place], [address], 06/05/2023 20:09:31 05/14/19 24 05/17/2023 DRUG SCREE N 17 W/CON F, UR fentanyl ia Negati ve NG/mL cutoff :2.0 Not Available [facility] ([facility]) [address] [place], [address], 06/05/2023 20:09:31 05/14/19 24 05/17/2023 DRUG SCREE N 17 W/CON F, UR buprenorphin e ia Negati ve NG/mL cutoff :5.0 Not Available [facility] ([facility]) [address] [place], [address], 06/05/2023 20:09:31 05/14/19 24 05/17/2023 DRUG SCREE N 17 W/CON F, UR tramadol ia Negati ve NG/mL cutoff :200 Not Available [facility] ([facility]) [address] [place], [address], 06/05/2023 20:09:31 05/14/19 24 05/17/2023 DRUG SCREE N 17 W/CON F, UR propoxyphene ia Negati ve NG/mL cutoff :300 Not Available [facility] ([facility]) [address] [place], [address], 06/05/2023 20:09:31 05/14/19 24 05/17/2023 DRUG SCREE N 17 W/CON F, UR tapentadol, ia Negati ve NG/mL cutoff :200 Not Available [facility] ([facility]) [address] [place], [address], 06/05/2023 20:09:31 05/14/19 24 05/17/2023 DRUG SCREE N 17 W/CON F, UR nicotine metabolite Negati ve Not Available [facility] ([facility]) [address] [place], [address], 06/05/2023 20:09:31 05/14/19 24 05/17/2023 DRUG SCREE N 17 W/CON F, UR cotinine Not Detect ed NG/mL Not Available [facility] ([facility]) [address] [facility], [place], [address], 06/05/2023 20:09:31 05/14/19 24 05/15/2023 HB SOLU + RFLX FRAC hemoglobin (HGB) solubility Negati ve negati ve Not Available [facility] ([facility]) [address] [facility], [place], [address], 06/05/2023 20:09:32 05/14/19 24 05/16/2023 RESUL T result 1 Commen t Mixed uroge nital ilir 25,00 0-50, 000 colon y formi ng units per mL Not Available [facility] ([facility]) [address] [facility], [place], [address], 06/05/2023 20:09:33 05/14/19 24 05/17/2023 HIV 1/2 AB DIFFE RENTI ATION HIV 1 Ab Reacti ve nonrea ctive Not Available [facility] ([facility] ) [address], [place], [address], 06/05/2023 20:09:33 05/14/19 24 05/17/2023 HIV 1/2 AB DIFFE RENTI ATION HIV 2 Ab Non Reacti ve nonrea ctive Not Available [facility] ([facility] ) [address] [place], [address], 06/05/2023 20:09:33 05/14/19 24 05/17/2023 HIV 1/2 AB DIFFE RENTI ATION interpretati on: HIV-1 Positi ve abnormal Labor atory evide nce consi stent with HIV-1 infec tion. Not Available [facility] ([facility] ) [address] [place], [address], 06/05/2023 20:09:33 05/14/19 24 05/15/2023 VARIC BART NIETOE R V AB, IGG varicella zoster IgG 1818 index immune >165 Negat jn <135 Equiv ocal 135 - 165 Posit jn >165 A posit jn resul t gener ally indic ates expos ure to the patho gen or admin istra tion of speci fic immun oglob ulins , but it is not indic ation of activ e infec tion or stage of disea se. Not Available [facility] ([facility]) [address] [facility], [place], [address], 06/05/2023 20:09:34 05/20/19 24 05/20/2023 COMP. METAB OLIC PANEL (14) glucose 243 mg/dL 70-99 above high normal Not Available [facility] [address] [place] [address], [address], 05/20/2023 20:08:32 05/20/19 24 05/20/2023 COMP. METAB OLIC PANEL (14) BUN 8 mg/dL 6-20 Not Available [facility] [address] [place] [address], [address], 05/20/2023 20:08:32 05/20/19 24 05/20/2023 COMP. METAB OLIC PANEL (14) creatinine <=0.46 mg/dL 0.76-1 .27 below low normal Not Available [facility] [address] [place] [address], [address], 05/20/2023 20:08:32 05/20/19 24 05/20/2023 COMP. METAB OLIC PANEL (14) eGFR 126 >=60 Units for eGFR value s are mL/mi n/1.7 3 The eGFR Calcu latio n has not been valid ated for patie nts under the age of 18. If test resul ts are displ ayed for a patie nt under the age of 18, disre sanya that value . Not Available [facility] [address] [place] [address], [address], 05/20/2023 20:08:32 05/20/19 24 05/20/2023 COMP. METAB OLIC PANEL (14) BUN/creatini ne ratio 18 9-23 Not Available [facility] [address] [place], [address], 05/20/2023 20:08:32 05/20/19 24 05/20/2023 COMP. METAB OLIC PANEL (14) sodium 135 mmol/ L 134-14 4 Not Available [facility] [address] [place] [address], [address], 05/20/2023 20:08:32 05/20/19 24 05/20/2023 COMP. METAB OLIC PANEL (14) potassium 4.5 mmol/ L 3.5-5. 2 Not Available [facility] [address] [place] [address], [address], 05/20/2023 20:08:32 05/20/19 24 05/20/2023 COMP. METAB OLIC PANEL (14) chloride 97 mmol/ L 96-106 Not Available [facility] [address] [place], [address], 05/20/2023 20:08:32 05/20/19 24 05/20/2023 COMP. METAB OLIC PANEL (14) carbon dioxide, total 24 mmol/ L 20-29 Not Available [facility] [address] [place] [address], [address], 05/20/2023 20:08:32 05/20/19 24 05/20/2023 COMP. METAB OLIC PANEL (14) calcium 9.4 mg/dL 8.7-10 .2 Not Available [facility] [address] [place] [address], [address], 05/20/2023 20:08:32 05/20/19 24 05/20/2023 COMP. METAB OLIC PANEL (14) protein, total 7.6 g/dL 6.0-8. 5 Not Available [facility] [address] [place] [address], [address], 05/20/2023 20:08:32 05/20/19 24 05/20/2023 COMP. METAB OLIC PANEL (14) albumin 4.6 g/dL 3.9-4. 9 Not Available [facility] [address] [place], [address], 05/20/2023 20:08:32 05/20/19 24 05/20/2023 COMP. METAB OLIC PANEL (14) globulin, total 3.0 g/dL 1.5-4. 5 Not Available [facility] [address] [place] [address], [address], 05/20/2023 20:08:32 05/20/19 24 05/20/2023 COMP. METAB OLIC PANEL (14) A/G ratio 1.0 1.2-2. 2 below low normal Not Available [facility] [address] [place] [address], [address], 05/20/2023 20:08:32 05/20/19 24 05/20/2023 COMP. METAB OLIC PANEL (14) bilirubin, total 0.6 mg/dL 0.0-1. 2 Not Available [facility] [address] [place], [address], 05/20/2023 20:08:32 05/20/19 24 05/20/2023 COMP. METAB OLIC PANEL (14) alkaline phosphatase 103 IU/L 44-121 Not Available [facility] [address] [place], [address], 05/20/2023 20:08:32 05/20/19 24 05/20/2023 COMP. METAB OLIC PANEL (14) AST (SGOT) 25 IU/L 0-40 Not Available [facility] [address] [place], [address], 05/20/2023 20:08:32 05/20/19 24 05/20/2023 COMP. METAB OLIC PANEL (14) ALT (SGPT) 19 IU/L 0-32 Not Available [facility] [address], [place], [address], 05/20/2023 20:08:32 05/20/19 24 05/21/2023 GEST. DIABE LILIA 1-HR SCREE N gestational diabetes screen 236 mg/dL 70-139 above high normal Accor ding to ADA, a gluco se thres hold of >139 mg/dL after 50-gr am load ident ifies appro ximat lyndsay 80% of women with gesta branden l diabe lilia melli tus, while the sensi tivit y is furth er incre ased to appro ximat lyndsay 90% by a thres hold of >129 mg/dL . Not Available [facility] ([facility]) [address] [facility], [place], [address], 05/21/2023 05:10:03 05/20/19 24 05/21/2023 HAV ANTIB SALVADOR W/ RFX hep A Ab, total Positi ve negati ve abnormal Comme nt: The HAV total antib salvador assay detec ts both IgG and IgM but does not diffe renti ate betwe en them. A negat jn resul t sugge sts susce ptibi lity to infec tion. A posit jn resul t could be due to vacci natio n, previ ously resol ira infec tion or activ e infec tion. Testi ng for HAV IgM shoul d be perfo rmed if activ e HAV infec tion is suspe cted. [facility] offer s profi les that will autom atica lly refle x posit jn HAV total antib salvador resul ts to IgM (e.g. , panel #[id number] HAV Antib salvador w/ Rfx). Not Available [facility] ([facility]) [address] [facility], [place], [address], 05/21/2023 09:14:41 05/20/19 24 05/21/2023 HEP A AB, IGM hep A Ab, IgM Negati ve negati ve Not Available [facility] ([facility]) [address] [facility], [place], [address], 05/21/2023 09:14:42 05/20/19 24 05/20/2023 HELPE R T-LYM PH-CD 4 WBC 6.6 x10e3 /uL 3.4-10 .8 Not Available [facility] ([facility]) [address] [facility], [place], [address], 05/21/2023 16:12:49 05/20/19 24 05/20/2023 HELPE R T-LYM PH-CD 4 RBC 3.93 x10e6 /uL 3.77-5 .28 Not Available [facility] ([facility]) [address] [facility], [place], [address], 05/21/2023 16:12:49 05/20/19 24 05/20/2023 HELPE R T-LYM PH-CD 4 hemoglobin 12.8 g/dL 11.1-1 5.9 Not Available [facility] ([facility]) [address] [facility], [place], [address], 05/21/2023 16:12:49 05/20/19 24 05/20/2023 HELPE R T-LYM PH-CD 4 hematocrit 36.9 % 34.0-4 6.6 Not Available [facility] ([facility]) [address] [facility], [place], [address], 05/21/2023 16:12:49 05/20/19 24 05/20/2023 HELPE R T-LYM PH-CD 4 MCV 94 fL 79-97 Not Available [facility] ([facility]) [address] [facility], [place], [address], 05/21/2023 16:12:49 05/20/19 24 05/20/2023 HELPE R T-LYM PH-CD 4 MCH 32.6 pg 26.6-3 3.0 Not Available [facility] ([facility]) [address] [facility], [place], [address], 05/21/2023 16:12:49 05/20/19 24 05/20/2023 HELPE R T-LYM PH-CD 4 MCHC 34.7 g/dL 31.5-3 5.7 Not Available [facility] ([facility]) [address] [facility], [place], [address], 05/21/2023 16:12:49 05/20/19 24 05/20/2023 HELPE R T-LYM PH-CD 4 RDW 11.4 % 11.7-1 5.4 below low normal Not Available [facility] ([facility]) [address] [facility], [place], [address], 05/21/2023 16:12:49 05/20/19 24 05/20/2023 HELPE R T-LYM PH-CD 4 platelets 300 x10e3 /uL 150-45 0 Not Available [facility] ([facility]) [address] [facility], [place], [address], 05/21/2023 16:12:49 05/20/19 24 05/20/2023 HELPE R T-LYM PH-CD 4 neutrophils 56 % notest ab. Not Available [facility] ([facility]) [address] [facility], [place], [address], 05/21/2023 16:12:49 05/20/19 24 05/20/2023 HELPE R T-LYM PH-CD 4 lymphs 30 % notest ab. Not Available [facility] ([facility]) [address] [facility], [place], [address], 05/21/2023 16:12:49 05/20/19 24 05/20/2023 HELPE R T-LYM PH-CD 4 monocytes 7 % notest ab. Not Available [facility] ([facility]) [address] [facility], [place], [address], 05/21/2023 16:12:49 05/20/19 24 05/20/2023 HELPE R T-LYM PH-CD 4 eos 7 % notest ab. Not Available [facility] ([facility]) [address] [place], [address], 05/21/2023 16:12:49 05/20/19 24 05/20/2023 HELPE R T-LYM PH-CD 4 basos 0 % notest ab. Not Available [facility] ([facility]) [address] [place], [address], 05/21/2023 16:12:49 05/20/19 24 05/20/2023 HELPE R T-LYM PH-CD 4 neutrophils (absolute) 3.7 x10e3 /uL 1.4-7. 0 Not Available [facility] ([facility]) [address] [place], [address], 05/21/2023 16:12:49 05/20/19 24 05/20/2023 HELPE R T-LYM PH-CD 4 lymphs (absolute) 2.0 x10e3 /uL 0.7-3. 1 Not Available [facility] ([facility]) [address] [place], [address], 05/21/2023 16:12:49 05/20/19 24 05/20/2023 HELPE R T-LYM PH-CD 4 monocytes(ab solute) 0.5 x10e3 /uL 0.1-0. 9 Not Available [facility] ([facility]) [address] [place], [address], 05/21/2023 16:12:49 05/20/19 24 05/20/2023 HELPE R T-LYM PH-CD 4 eos (absolute) 0.5 x10e3 /uL 0.0-0. 4 above high normal Not Available [facility] ([facility]) [address] [place], [address], 05/21/2023 16:12:49 05/20/19 24 05/20/2023 HELPE R T-LYM PH-CD 4 baso (absolute) 0.0 x10e3 /uL 0.0-0. 2 Not Available [facility] ([facility]) [address] [place], [address], 05/21/2023 16:12:49 05/20/19 24 05/20/2023 HELPE R T-LYM PH-CD 4 immature granulocytes 0 % notest ab. Not Available [facility] ([facility]) [address] [place], [address], 05/21/2023 16:12:49 05/20/19 24 05/20/2023 HELPE R T-LYM PH-CD 4 immature grans (abs) 0.0 x10e3 /uL 0.0-0. 1 Not Available [facility] ([facility]) [address] [place], [address], 05/21/2023 16:12:49 05/20/19 24 05/21/2023 HELPE R T-LYM PH-CD 4 absolute cd 4 helper 540 /uL 359-15 19 Not Available [facility] ([facility]) [address] [place], [address], 05/21/2023 16:12:49 05/20/19 24 05/21/2023 HELPE R T-LYM PH-CD 4 % cd 4 pos. lymph. 27.0 % 30.8-5 8.5 below low normal Not Available [facility] ([facility]) [address] [place], [address], 05/21/2023 16:12:49 05/20/19 24 05/23/2023 NUSWA B VAGIN ITIS PLUS (VG+) atopobium vaginae High - 2 score abnormal Not Available [facility] ([facility]) [address] [place], [address], 05/24/2023 06:14:47 05/20/19 24 05/23/2023 NUA B VAGIN ITIS PLUS (VG+) bvab 2 Low - 0 score Not Available [facility] ([facility]) [address] [facility], [place], [address], 05/24/2023 06:14:47 05/20/19 24 05/23/2023 NUA B VAGIN ITIS PLUS (VG+) megasphaera 1 Low - 0 score Calcu late total score by keshawn g the 3 indiv idual bacte rial vagin osis (BV) marke r score s toget her. Total score is inter prete d as follo ws: Total score 0-1: Indic ates the absen ce of BV. Total score 2: Indet ermin ate for BV. Addit ional clini jasmina data shoul d be evalu ated to estab abril a diagn osis. Total score 3-6: Indic ates the prese nce of BV. This test was devel oped and its perfo rmanc e edilson cteri stics deter mined by [facility]. It has not been clear ed or appro ira by the Food and Drug Admin istra tion. Not Available [facility] ([facility]) [address] [facility], [place], [address], 05/24/2023 06:14:47 05/20/19 24 05/23/2023 [facility]VG+) mohan albicans, ARLET Negati ve negati ve Not Available [facility] ([facility]) [address] [facility], [place], [address], 05/24/2023 06:14:47 05/20/19 24 05/23/2023 NUA B VAGIN ITIS PLUS (VG+) mohan glabrata, ARLET Negati ve negati ve Not Available [facility] ([facility]) [address] [facility], [place], [address], 05/24/2023 06:14:47 05/20/19 24 05/24/2023 NUSWA B VAGIN ITIS PLUS (VG+) trich vag by ARLET Negati ve negati ve Not Available [facility] ([facility]) [address] [facility], [place], [address], 05/24/2023 06:14:47 05/20/19 24 05/24/2023 NUA B VAGIN ITIS PLUS (VG+) chlamydia trachomatis, ARLET Negati ve negati ve Not Available [facility] ([facility]) [address] [facility], [place], [address], 05/24/2023 06:14:47 05/20/19 24 05/24/2023 NUA B VAGIN ITIS PLUS (VG+) neisseria gonorrhoeae, ARLET Negati ve negati ve Not Available [facility] ([facility]) [address] [facility], [place], [address], 05/24/2023 06:14:47 05/20/19 24 05/20/2023 urina lysis , dipst ick Leukocytes Small Not Available In-Offi ce Order Internal Use Only DO Not Attach Compendium DO Not Attach Compendium, Do Not Delete/merge, [id number] 05/20/2023 10:30:15 05/20/19 24 05/20/2023 urina lysis , dipst ick Nitrite negati ve Not Available In-Office Order Internal Use Only DO Not Attach Compendium DO Not Attach Compendium, Do Not Delete/merge, [id number] 05/20/2023 10:30:15 05/20/19 24 05/20/2023 urina lysis , dipst ick Urobilinogen .2 Not Available In-Of fice Order Internal Use Only DO Not Attach Compendium DO Not Attach Compendium, Do Not Delete/merge, [id number] 05/20/2023 10:30:15 05/20/19 24 05/20/2023 urina lysis , dipst ick Protein Negati ve Not Available In-Office Order Internal Use Only DO Not Attach Compendium DO Not Attach Compendium, Do Not Delete/merge, 05/20/2023 10:30:15 05/20/19 24 05/20/2023 urina lysis , dipst ick pH 6.5 Not Available In-Office Order Internal Use Only DO Not Attach Compendium DO Not Attach Compendium, Do Not Delete/merge, 05/20/2023 10:30:15 05/20/19 24 05/20/2023 urina lysis , dipst ick Blood Large Not Available In-Office Order Internal Use Only DO Not Attach Compendium DO Not Attach Compendium, Do Not Delete/merge, 05/20/2023 10:30:15 05/20/19 24 05/20/2023 urina lysis , dipst ick Specific Dixon 1.005 Not Available In-Off ice Order Internal Use Only DO Not Attach Compendium DO Not Attach Compendium, Do Not Delete/merge, 05/20/2023 10:30:15 05/20/19 24 05/20/2023 urina lysis , dipst ick Ketone Negati ve Not Available In-Office Order Internal Use Only DO Not Attach Compendium DO Not Attach Compendium, Do Not Delete/merge, 05/20/2023 10:30:15 05/20/19 24 05/20/2023 urina lysis , dipst ick Bilirubin Negati ve Not Available In-Office Order Internal Use Only DO Not Attach Compendium DO Not Attach Compendium, Do Not Delete/merge, 05/20/2023 10:30:15 05/20/19 24 05/20/2023 urina lysis , dipst ick Glucose Negati ve Not Available In-Office Order Internal Use Only DO Not Attach Compendium DO Not Attach Compendium, Do Not Delete/merge, 05/20/2023 10:30:15 05/24/1905/24/2023 GESTA BRANDEN L 3 HOUR GTT-N DDGC note: Commen t Diagn osis of gesta branden l diabe lilia requi res that two or more high thres holds are excee ded. The star ance test is based on a 100 gm oral gluco se chall enge at 24 - 28 weeks of gesta tion. Not Available [facility] ([facility]) [address] [place], [address], 05/25/2023 09:12:53 05/24/19 24 05/25/2023 GESTA BRANDEN L 3 HOUR GTT-N DDGC glucose - fasting 86 mg/dL 65-104 Not Available [facility] ([facility]) [address] [place], [address], 05/25/2023 09:12:53 05/24/19 24 05/25/2023 GESTA BRANDEN L 3 HOUR GTT-N DDGC glucose - 1 hour 263 mg/dL 65-189 above high normal Not Available [facility] ([facility]) [address] [place], [address], 05/25/2023 09:12:53 05/24/19 24 05/25/2023 GESTA BRANDEN L 3 HOUR GTT-N DDGC glucose - 2 hour 257 mg/dL 65-164 above high normal Not Available [facility] ([facility]) [address] [place], [address], 05/25/2023 09:12:53 05/24/19 24 05/25/2023 GESTA BRANDEN L 3 HOUR GTT-N DDGC glucose - 3 hour 109 mg/dL 65-144 Not Available [facility] ([facility]) [address] [place], [address], 05/25/2023 09:12:53 06/03/19 24 06/04/2023 HCG,B ETA SUBUN IT, QNT HCG,beta subunit,qnt, serum 86 mIU/m L Femal e (Non- pregn ant) 0 - 5 (Post menop ausal ) 0 - 8 Femal e (Preg nant) Weeks of Gesta tion 3 6 - 71 4 10 - 750 5 623 - 8306 6 814 - 57662 7 5850 -5221 63 8 79296 -2391 71 9 06436 -5524 10 10 56523 -6894 77 12 64212 -2106 12 14 27970 - 96900 15 29834 - 88128 16 2536 - 11999 17 8235 - 05573 18 9474 - 60147 [facility] ECLIA metho dolog y Not Available [facility] ([facility]) [address] [facility], [place], [address], 06/04/2023 08:23:09 06/03/19 24 06/04/2023 CBC WITH DIFFE RENTI AL/PL ATELE T WBC 6.7 x10e3 /uL 3.4-10 .8 Not Available [facility] ([facility]) [address] [place], [address], 06/04/2023 08:23:10 06/03/19 24 06/04/2023 CBC WITH DIFFE RENTI AL/PL ATELE T RBC 3.97 x10e6 /uL 3.77-5 .28 Not Available [facility] ([facility]) [address] [place], [address], 06/04/2023 08:23:10 06/03/19 24 06/04/2023 CBC WITH DIFFE RENTI AL/PL ATELE T hemoglobin 13.2 g/dL 11.1-1 5.9 Not Available [facility] ([facility]) [address] [place], [address], 06/04/2023 08:23:10 06/03/19 24 06/04/2023 CBC WITH DIFFE RENTI AL/PL ATELE T hematocrit 37.8 % 34.0-4 6.6 Not Available [facility] ([facility]) [address] [place], [address], 06/04/2023 08:23:10 06/03/19 24 06/04/2023 CBC WITH DIFFE RENTI AL/PL ATELE T MCV 95 fL 79-97 Not Available [facility] ([facility]) [address] [place], [address], 06/04/2023 08:23:10 06/03/19 24 06/04/2023 CBC WITH DIFFE RENTI AL/PL ATELE T MCH 33.2 pg 26.6-3 3.0 above high normal Not Available [facility] ([facility]) [address] [facility], [place], [address], 06/04/2023 08:23:10 06/03/19 24 06/04/2023 CBC WITH DIFFE RENTI AL/PL ATELE T MCHC 34.9 g/dL 31.5-3 5.7 Not Available [facility] ([facility]) [address] [facility], [place], [address], 06/04/2023 08:23:10 06/03/19 24 06/04/2023 CBC WITH DIFFE RENTI AL/PL ATELE T RDW 11.7 % 11.7-1 5.4 Not Available [facility] ([facility]) [address] [facility], [place], [address], 06/04/2023 08:23:10 06/03/19 24 06/04/2023 CBC WITH DIFFE RENTI AL/PL ATELE T platelets 321 x10e3 /uL 150-45 0 Not Available [facility] ([facility]) [address] [facility], [place], [address], 06/04/2023 08:23:10 06/03/19 24 06/04/2023 CBC WITH DIFFE RENTI AL/PL ATELE T neutrophils 49 % notest ab. Not Available [facility] ([facility]) [address] [facility], [place], [address], 06/04/2023 08:23:10 06/03/19 24 06/04/2023 CBC WITH DIFFE RENTI AL/PL ATELE T lymphs 34 % notest ab. Not Available [facility] ([facility]) [address] [place], [address], 06/04/2023 08:23:10 06/03/19 24 06/04/2023 CBC WITH DIFFE RENTI AL/PL ATELE T monocytes 8 % notest ab. Not Available [facility] ([facility]) [address] [facility], [place], [address], 06/04/2023 08:23:10 06/03/19 24 06/04/2023 CBC WITH DIFFE RENTI AL/PL ATELE T eos 9 % notest ab. Not Available [facility] ([facility]) [address] [facility], [place], [address], 06/04/2023 08:23:10 06/03/19 24 06/04/2023 CBC WITH DIFFE RENTI AL/PL ATELE T basos 0 % notest ab. Not Available [facility] ([facility]) [address] [facility], [place], [address], 06/04/2023 08:23:10 06/03/19 24 06/04/2023 CBC WITH DIFFE RENTI AL/PL ATELE T neutrophils (absolute) 3.2 x10e3 /uL 1.4-7. 0 Not Available [facility] ([facility]) [address] [facility], [place], [address], 06/04/2023 08:23:10 06/03/19 24 06/04/2023 CBC WITH DIFFE RENTI AL/PL ATELE T lymphs (absolute) 2.3 x10e3 /uL 0.7-3. 1 Not Available [facility] ([facility]) [address] [facility], [place], [address], 06/04/2023 08:23:10 06/03/19 24 06/04/2023 CBC WITH DIFFE RENTI AL/PL ATELE T monocytes(ab solute) 0.5 x10e3 /uL 0.1-0. 9 Not Available [facility] ([facility]) [address] [place], [address], 06/04/2023 08:23:10 06/03/19 24 06/04/2023 CBC WITH DIFFE RENTI AL/PL ATELE T eos (absolute) 0.6 x10e3 /uL 0.0-0. 4 above high normal Not Available [facility] ([facility]) [address] [place], [address], 06/04/2023 08:23:10 06/03/19 24 06/04/2023 CBC WITH DIFFE RENTI AL/PL ATELE T baso (absolute) 0.0 x10e3 /uL 0.0-0. 2 Not Available [facility] ([facility]) [address] [facility], [place], [address], 06/04/2023 08:23:10 06/03/19 24 06/04/2023 CBC WITH DIFFE RENTI AL/PL ATELE T immature granulocytes 0 % notest ab. Not Available [facility] ([facility]) [address] [facility], [place], [address], 06/04/2023 08:23:10 06/03/19 24 06/04/2023 CBC WITH DIFFE RENTI AL/PL ATELE T immature grans (abs) 0.0 x10e3 /uL 0.0-0. 1 Not Available [facility] ([facility]) [address] [place], [address], 06/04/2023 08:23:10 06/05/19 24 06/06/2023 HCG,B ETA SUBUN IT, QNT HCG,beta subunit,qnt, serum 28 mIU/m L Femal e (Non- pregn ant) 0 - 5 (Post menop ausal ) 0 - 8 Femal e (Preg nant) Weeks of Gesta tion 3 6 - 71 4 10 - 750 5 482 - 3693 6 745 - 24548 7 1986 -3374 63 8 54325 -6971 71 9 15312 -8851 10 10 47865 -3598 77 12 94943 -4873 12 14 38321 - 61060 15 14448 - 91411 16 1959 - 68880 17 8175 - 5049632 18 8099 - 12061 Maral ECLIA metho dolog y Not Available [facility] ([facility]) [address] [facility], [place], [address], 06/06/2023 13:13:25 06/10/19 24 06/11/2023 HCG,B ETA SUBUN IT, QNT HCG,beta subunit,qnt, serum 3 mIU/m L Femal e (Non- pregn ant) 0 - 5 (Post menop ausal ) 0 - 8 Femal e (Preg nant) Weeks of Gesta tion 3 6 - 71 4 10 - 750 5 464 - 8918 6 552 - 17009 7 9200 -3395 63 8 37956 -7339 71 9 31648 -1380 10 10 42412 -2153 77 12 73383 -4646 12 14 71139 - 37060 15 96085 - 98167 16 5345 - 46532 17 8184 - 62868 18 8099 - 64800 Maral ECLIA metho dolog y Not Available [facility] ([facility]) [address] [facility], [place], [address], 06/11/2023 11:37:46 10/18/19 24 10/19/2023 RNA, REAL TIME PCR (NON- GRAPH ) HIV-1 RNA by PCR <20 copie s/mL HIV-1 RNA detec sanjeev The repor table range for this assay is 20 to 10,00 0,000 copie s HIV-1 RNA/m L. Not Available [facility] ([facility]) [address] [facility], [place], [address], 10/20/2023 06:42:22 10/18/1910/19/2023 RNA, REAL TIME PCR (NON- GRAPH ) log10 HIV-1 RNA TNP log10 copy/ mL Unabl e to calcu late resul t since non-n umeri c resul t obtai delgado for compo nent test. Not Available [facility] ([facility]) [address] [facility], [place], [address], 10/20/2023 06:42:22 10/18/19 24 10/19/2023 HCV ANTIB SALVADOR hep C virus Ab NON REACTI VE nonrea ctive HCV antib salvador alone does not diffe renti ate betwe en previ ously resol ira infec tion and activ e infec tion. Equiv ocal and React jn HCV antib salvador resul ts shoul d be follo wed up with an HCV RNA test to suppo rt the diagn osis of activ e HCV infec tion. Not Available [facility] ([facility]) [address] [facility], [place], [address], 10/21/2023 20:08:46 10/18/19 24 10/21/2023 CT, NG, TRICH VAG BY ARLET chlamydia by ARLET NEGATI VE negati ve Not Available [facility] ([facility]) [address] [place], [address], 10/21/2023 20:08:47 10/18/19 24 10/21/2023 CT, NG, TRICH VAG BY ARLET gonococcus by ARLET NEGATI VE negati ve Not Available [facility] ([facility]) [address] [place], [address], 10/21/2023 20:08:47 10/18/19 24 10/21/2023 CT, NG, TRICH VAG BY ARLET trich vag by ARLET NEGATI VE negati ve Not Available [facility] ([facility]) [address] [place], [address], 10/21/2023 20:08:47 10/18/19 24 10/19/2023 COMP. METAB OLIC PANEL (14) glucose 103 mg/dL 70-99 above high normal Not Available [facility] ([facility]) [address] [place], [address], 10/21/2023 20:08:48 10/18/19 24 10/19/2023 COMP. METAB OLIC PANEL (14) BUN 8 mg/dL 6-20 Not Available [facility] ([facility]) [address] [place], [address], 10/21/2023 20:08:48 10/18/19 24 10/19/2023 COMP. METAB OLIC PANEL (14) creatinine 0.53 mg/dL 0.57-1 .00 below low normal Not Available [facility] ([facility]) [address] [place], [address], 10/21/2023 20:08:48 10/18/19 24 10/19/2023 COMP. METAB OLIC PANEL (14) eGFR 121 mL/mi n/1.7 3 >59 Not Available [facility] ([facility]) [address] [facility] [place], [address], 10/21/2023 20:08:48 10/18/19 24 10/19/2023 COMP. METAB OLIC PANEL (14) BUN/creatini ne ratio 15 9-23 Not Available [facility] ([facility]) [address] [facility], [place], [address], 10/21/2023 20:08:48 10/18/19 24 10/19/2023 COMP. METAB OLIC PANEL (14) sodium 138 mmol/ L 134-14 4 Not Available [facility] ([facility]) [address] [facility] [place], [address], 10/21/2023 20:08:48 10/18/19 24 10/19/2023 COMP. METAB OLIC PANEL (14) potassium 4.1 mmol/ L 3.5-5. 2 Not Available [facility] ([facility]) [address] [facility] [place], [address], 10/21/2023 20:08:48 10/18/19 24 10/19/2023 COMP. METAB OLIC PANEL (14) chloride 103 mmol/ L 96-106 Not Available [facility] ([facility]) [address] [facility] [place], [address], 10/21/2023 20:08:48 10/18/19 24 10/19/2023 COMP. METAB OLIC PANEL (14) carbon dioxide, total 22 mmol/ L 20- Not Available [facility] ([facility]) [address] [place], [address], 10/21/2023 20:08:48 10/18/19 24 10/19/2023 COMP. METAB OLIC PANEL (14) calcium 9.3 mg/dL 8.7-10 .2 Not Available [facility] ([facility]) [address] [place], [address], 10/21/2023 20:08:48 10/18/19 24 10/19/2023 COMP. METAB OLIC PANEL (14) protein, total 7.2 g/dL 6.0-8. 5 Not Available [facility] ([facility]) [address] [place], [address], 10/21/2023 20:08:48 10/18/19 24 10/19/2023 COMP. METAB OLIC PANEL (14) albumin 4.4 g/dL 3.9-4. 9 Not Available [facility] ([facility]) [address] [place], [address], 10/21/2023 20:08:48 10/18/19 24 10/19/2023 COMP. METAB OLIC PANEL (14) globulin, total 2.8 g/dL 1.5-4. 5 Not Available [facility] ([facility]) [address] [place], [address], 10/21/2023 20:08:48 10/18/19 24 10/19/2023 COMP. METAB OLIC PANEL (14) bilirubin, total 0.7 mg/dL 0.0-1. 2 Not Available [facility] ([facility]) [address] [place], [address], 10/21/2023 20:08:48 10/18/19 24 10/19/2023 COMP. METAB OLIC PANEL (14) alkaline phosphatase 86 IU/L 44-121 Not Available [facility] ([facility]) [address] [facility], [place], [address], 10/21/2023 20:08:48 10/18/19 24 10/19/2023 COMP. METAB OLIC PANEL (14) AST (SGOT) 33 IU/L 0-40 Not Available [facility] ([facility]) [address] [facility], [place], [address], 10/21/2023 20:08:48 10/18/19 24 10/19/2023 COMP. METAB OLIC PANEL (14) ALT (SGPT) 32 IU/L 0-32 Not Available [facility] ([facility]) [address] [facility], [place], [address], 10/21/2023 20:08:48 10/18/19 24 10/19/2023 HELPE R T-LYM PH-CD 4 WBC 5.8 x10e3 /uL 3.4-10 .8 Not Available [facility] ([facility]) [address] [facility], [place], [address], 10/21/2023 20:08:48 10/18/19 24 10/19/2023 HELPE R T-LYM PH-CD 4 RBC 4.26 x10e6 /uL 3.77-5 .28 Not Available [facility] ([facility]) [address] [facility], [place], [address], 10/21/2023 20:08:48 10/18/19 24 10/19/2023 HELPE R T-LYM PH-CD 4 hemoglobin 13.6 g/dL 11.1-1 5.9 Not Available [facility] ([facility]) [address] [facility], [place], [address], 10/21/2023 20:08:48 10/18/19 24 10/19/2023 HELPE R T-LYM PH-CD 4 hematocrit 40.2 % 34.0-4 6.6 Not Available [facility] ([facility]) [address] [facility], [place], [address], 10/21/2023 20:08:48 10/18/19 24 10/19/2023 HELPE R T-LYM PH-CD 4 MCV 94 fL 79-97 Not Available [facility] ([facility]) [address] [facility], [place], [address], 10/21/2023 20:08:48 10/18/19 24 10/19/2023 HELPE R T-LYM PH-CD 4 MCH 31.9 pg 26.6-3 3.0 Not Available [facility] ([facility]) [address] [facility], [place], [address], 10/21/2023 20:08:48 10/18/19 24 10/19/2023 HELPE R T-LYM PH-CD 4 MCHC 33.8 g/dL 31.5-3 5.7 Not Available [facility] ([facility]) [address] [facility], [place], [address], 10/21/2023 20:08:48 10/18/19 24 10/19/2023 HELPE R T-LYM PH-CD 4 RDW 13.0 % 11.7-1 5.4 Not Available [facility] ([facility]) [address] [facility], [place], [address], 10/21/2023 20:08:48 10/18/19 24 10/19/2023 HELPE R T-LYM PH-CD 4 platelets 271 x10e3 /uL 150-45 0 Not Available [facility] ([facility]) [address] [facility], [place], [address], 10/21/2023 20:08:48 10/18/19 24 10/19/2023 HELPE R T-LYM PH-CD 4 neutrophils 49 % notest ab. Not Available [facility] ([facility]) [address] [facility], [place], [address], 10/21/2023 20:08:48 10/18/19 24 10/19/2023 HELPE R T-LYM PH-CD 4 lymphs 33 % notest ab. Not Available [facility] ([facility]) [address] [facility], [place], [address], 10/21/2023 20:08:48 10/18/19 24 10/19/2023 HELPE R T-LYM PH-CD 4 monocytes 9 % notest ab. Not Available [facility] ([facility]) [address] [facility], [place], [address], 10/21/2023 20:08:48 10/18/19 24 10/19/2023 HELPE R T-LYM PH-CD 4 eos 8 % notest ab. Not Available [facility] ([facility]) [address] [facility], [place], [address], 10/21/2023 20:08:48 10/18/19 24 10/19/2023 HELPE R T-LYM PH-CD 4 basos 1 % notest ab. Not Available [facility] ([facility]) [address] [facility], [place], [address], 10/21/2023 20:08:48 10/18/19 24 10/19/2023 HELPE R T-LYM PH-CD 4 neutrophils (absolute) 2.9 x10e3 /uL 1.4-7. 0 Not Available [facility] ([facility]) [address] [facility], [place], [address], 10/21/2023 20:08:48 10/18/19 24 10/19/2023 HELPE R T-LYM PH-CD 4 lymphs (absolute) 1.9 x10e3 /uL 0.7-3. 1 Not Available [facility] ([facility]) [address] [facility], [place], [address], 10/21/2023 20:08:48 10/18/19 24 10/19/2023 HELPE R T-LYM PH-CD 4 monocytes(ab solute) 0.5 x10e3 /uL 0.1-0. 9 Not Available [facility] ([facility]) [address] [place], [address], 10/21/2023 20:08:48 10/18/19 24 10/19/2023 HELPE R T-LYM PH-CD 4 eos (absolute) 0.5 x10e3 /uL 0.0-0. 4 above high normal Not Available [facility] ([facility]) [address] [place], [address], 10/21/2023 20:08:48 10/18/19 24 10/19/2023 HELPE R T-LYM PH-CD 4 baso (absolute) 0.0 x10e3 /uL 0.0-0. 2 Not Available [facility] ([facility]) [address] [place], [address], 10/21/2023 20:08:48 10/18/19 24 10/19/2023 HELPE R T-LYM PH-CD 4 immature granulocytes 0 % notest ab. Not Available [facility] ([facility]) [address] [place], [address], 10/21/2023 20:08:48 10/18/19 24 10/19/2023 HELPE R T-LYM PH-CD 4 immature grans (abs) 0.0 x10e3 /uL 0.0-0. 1 Not Available [facility] ([facility]) [address] [place], [address], 10/21/2023 20:08:48 10/18/19 24 10/21/2023 HELPE R T-LYM PH-CD 4 absolute cd 4 helper 492 /uL 359-15 19 Not Available [facility] ([facility]) [address] [place], [address], 10/21/2023 20:08:48 10/18/1910/21/2023 HELPE R T-LYM PH-CD 4 % cd 4 pos. lymph. 25.9 % 30.8-5 8.5 below low normal Not Available [facility] ([facility]) [address] [facility], [place], [address], 10/21/2023 20:08:48 10/18/19 24 10/19/2023 RPR, RFX QN RPR/C ONFIR M TP RPR NON REACTI VE nonrea ctive Not Available [facility] ([facility]) [address] [facility], [place], [address], 10/21/2023 20:08:49 03/30/20 24 03/31/2024 HCV ANTIB SALVADOR hep C virus Ab NON REACTI VE nonrea ctive HCV antib salvador alone does not diffe renti ate betwe en previ ously resol ira infec tion and activ e infec tion. Equiv ocal and React jn HCV antib salvador resul ts shoul d be follo wed up with an HCV RNA test to suppo rt the diagn osis of activ e HCV infec tion. Not Available [facility] ([facility]) [address] [facility], [place], [address], 03/31/2024 20:08:05 03/30/20 24 03/31/2024 CT, NG, TRICH VAG BY ARLET chlamydia by ARLET NEGATI VE negati ve Not Available [facility] ([facility]) [address] [facility], [place], [address], 03/31/2024 20:08:06 03/30/20 24 03/31/2024 CT, NG, TRICH VAG BY ARLET gonococcus by ARLET NEGATI VE negati ve Not Available [facility] ([facility]) [address] [facility], [place], [address], 03/31/2024 20:08:06 03/30/20 24 03/31/2024 CT, NG, TRICH VAG BY ARLET trich vag by ARLET NEGATI VE negati ve Not Available [facility] ([facility]) [address] [place], [address], 03/31/2024 20:08:06 03/30/20 24 03/31/2024 COMP. METAB OLIC PANEL (14) glucose 109 mg/dL 70-99 above high normal Not Available [facility] ([facility]) [address] [place], [address], 03/31/2024 20:08:07 03/30/20 24 03/31/2024 COMP. METAB OLIC PANEL (14) BUN 7 mg/dL 6-20 Not Available [facility] ([facility]) [address] [place], [address], 03/31/2024 20:08:07 03/30/20 24 03/31/2024 COMP. METAB OLIC PANEL (14) creatinine 0.43 mg/dL 0.57-1 .00 below low normal Not Available [facility] ([facility]) [address] [place], [address], 03/31/2024 20:08:07 03/30/20 24 03/31/2024 COMP. METAB OLIC PANEL (14) eGFR 127 mL/mi n/1.7 3 >59 Not Available [facility] ([facility]) [address] [place], [address], 03/31/2024 20:08:07 03/30/20 24 03/31/2024 COMP. METAB OLIC PANEL (14) BUN/creatini ne ratio 16 9-23 Not Available [facility] ([facility]) [address] [place], [address], 03/31/2024 20:08:07 03/30/20 24 03/31/2024 COMP. METAB OLIC PANEL (14) sodium 137 mmol/ L 134-14 4 Not Available [facility] ([facility]) [address] [place], [address], 03/31/2024 20:08:07 03/30/20 24 03/31/2024 COMP. METAB OLIC PANEL (14) potassium 3.8 mmol/ L 3.5-5. 2 Not Available [facility] ([facility]) [address] [place], [address], 03/31/2024 20:08:07 03/30/20 24 03/31/2024 COMP. METAB OLIC PANEL (14) chloride 104 mmol/ L 96-106 Not Available [facility] ([facility]) [address] [place], [address], 03/31/2024 20:08:07 03/30/20 24 03/31/2024 COMP. METAB OLIC PANEL (14) carbon dioxide, total 16 mmol/ L 20-29 below low normal Not Available [facility] ([facility]) [address] [place], [address], 03/31/2024 20:08:07 03/30/20 24 03/31/2024 COMP. METAB OLIC PANEL (14) calcium 9.4 mg/dL 8.7-10 .2 Not Available [facility] ([facility]) [address] [place], [address], 03/31/2024 20:08:07 03/30/20 24 03/31/2024 COMP. METAB OLIC PANEL (14) protein, total 6.9 g/dL 6.0-8. 5 Not Available [facility] ([facility]) [address] [facility] [place], [address], 03/31/2024 20:08:07 03/30/20 24 03/31/2024 COMP. METAB OLIC PANEL (14) albumin 3.9 g/dL 3.9-4. 9 Not Available [facility] ([facility]) [address] [facility], [place], [address], 03/31/2024 20:08:07 03/30/20 24 03/31/2024 COMP. METAB OLIC PANEL (14) globulin, total 3.0 g/dL 1.5-4. 5 Not Available [facility] ([facility]) [address] [facility], [place], [address], 03/31/2024 20:08:07 03/30/20 24 03/31/2024 COMP. METAB OLIC PANEL (14) bilirubin, total 0.4 mg/dL 0.0-1. 2 Not Available [facility] ([facility]) [address] [facility] [place], [address], 03/31/2024 20:08:07 03/30/20 24 03/31/2024 COMP. METAB OLIC PANEL (14) alkaline phosphatase 94 IU/L 44-121 Not Available [facility] ([facility]) [address] [facility], [place], [address], 03/31/2024 20:08:07 03/30/20 24 03/31/2024 COMP. METAB OLIC PANEL (14) AST (SGOT) 16 IU/L 0-40 Not Available [facility] ([facility]) [address] [facility], [place], [address], 03/31/2024 20:08:07 03/30/20 24 03/31/2024 COMP. METAB OLIC PANEL (14) ALT (SGPT) 9 IU/L 0-32 Not Available [facility] ([facility]) [address] [facility], [place], [address], 03/31/2024 20:08:07 03/30/20 24 03/31/2024 RPR, RFX QN RPR/C ONFIR M TP RPR NON REACTI VE nonrea ctive Not Available [facility] ([facility]) [address] [facility] [place], [address], 03/31/2024 20:08:08 03/30/20 24 03/31/2024 RNA, REAL TIME PCR (NON- GRAPH ) HIV-1 RNA by PCR <20 copie s/mL HIV-1 RNA detec sanjeev The repor table range for this assay is 20 to 10,00 0,000 copie s HIV-1 RNA/m L. Not Available [facility] ([facility]) [address] [facility], [place], [address], 04/01/2024 06:13:49 03/30/20 24 03/31/2024 RNA, REAL TIME PCR (NON- GRAPH ) log10 HIV-1 RNA TNP log10 copy/ mL Unabl e to calcu late resul t since non-n umeri c resul t obtai delgado for compo nent test. Not Available [facility] ([facility]) [address] [facility], [place], [address], 04/01/2024 06:13:49 03/30/20 24 03/31/2024 QUANT IFERO N-TB GOLD PLUS quantiferon incubation INCUBA TION PERFOR MED. Not Available [facility] ([facility]) [address] [facility], [place], [address], 04/01/2024 17:07:10 03/30/20 24 03/31/2024 QUANT IFERO N-TB GOLD PLUS quantiferon criteria COMMEN T Quant iFERO N-TB Gold Plus is a quali tativ e indir ect test for M tuber culos is infec tion (incl uding disea se) and is inten ded for use in conju nctio n with risk asses sment , radio graph y, and other medic al and diagn ostic evalu ation s. The Quant iFERO N-TB Gold Plus resul t is deter mined by subtr actin g the Nil value from eithe r TB antig en (Ag) value . The Mitog en tube serve s as a contr ol for the test. Not Available [facility] ([facility]) [address] [facility], [place], [address], 04/01/2024 17:07:10 03/30/20 24 04/01/2024 QUANT IFERO N-TB GOLD PLUS quantiferon- TB gold plus NEGATI VE negati ve No respo nse to M mili goinsos is antig ens detec sanjeev. Infec tion with M mili goinsos is is unlik lyndsay, but high risk indiv idual s shoul d be consi dered for addit ional testi ng (ATS/ IDSA/ CDC Clini jasmina Pract ice Guide lines , 2017) . The refer ence range is an Antig en minus Nil resul t of <0.35 IU/mL . Chemi lumin escen ce immun oassa y metho dolog y Not Available [facility] ([facility]) [address] [place], [address], 04/01/2024 17:07:10 03/30/20 24 04/01/2024 QUANT IFERO N-TB GOLD PLUS quantiferon TB1 Ag value 0.01 IU/mL Not Available [facility] ([facility]) [address] [place], [address], 04/01/2024 17:07:10 03/30/20 24 04/01/2024 QUANT IFERO N-TB GOLD PLUS quantiferon TB2 Ag value 0.00 IU/mL Not Available [facility] ([facility]) [address] [place], [address], 04/01/2024 17:07:10 03/30/20 24 04/01/2024 QUANT IFERO N-TB GOLD PLUS quantiferon nil value 0.01 IU/mL Not Available [facility] ([facility]) [address] [place], [address], 04/01/2024 17:07:10 03/30/20 24 04/01/2024 QUANT IFERO N-TB GOLD PLUS quantiferon mitogen value >10.00 IU/mL Not Available [facility] ([facility]) [address] [place], [address], 04/01/2024 17:07:10 08/25/19 25 08/25/2024 HCV ANTIB SALVADOR hep C virus Ab NON REACTI VE nonrea ctive HCV antib salvador alone does not diffe renti ate betwe en previ ously resol ira infec tion and activ e infec tion. Equiv ocal and React jn HCV antib salvador resul ts shoul d be follo wed up with an HCV RNA test to suppo rt the diagn osis of activ e HCV infec tion. Not Available [facility] ([facility]) [address] [facility], [place], [address], 08/25/2024 15:10:58 08/25/19 25 08/25/2024 COMP. METAB OLIC PANEL (14) glucose 100 mg/dL 70-99 above high normal Not Available [facility] ([facility]) [address] [place], [address], 08/25/2024 15:10:59 08/25/19 25 08/25/2024 COMP. METAB OLIC PANEL (14) BUN 10 mg/dL 6-20 Not Available [facility] ([facility]) [address] [place], [address], 08/25/2024 15:10:59 08/25/19 25 08/25/2024 COMP. METAB OLIC PANEL (14) creatinine 0.61 mg/dL 0.57-1 .00 Not Available [facility] ([facility]) [address] [place], [address], 08/25/2024 15:10:59 08/25/19 25 08/25/2024 COMP. METAB OLIC PANEL (14) eGFR 117 mL/mi n/1.7 3 >59 Not Available [facility] ([facility]) [address] [place], [address], 08/25/2024 15:10:59 08/25/19 25 08/25/2024 COMP. METAB OLIC PANEL (14) BUN/creatini ne ratio 16 9-23 Not Available [facility] ([facility]) [address] [place], [address], 08/25/2024 15:10:59 08/25/19 25 08/25/2024 COMP. METAB OLIC PANEL (14) sodium 136 mmol/ L 134-14 4 Not Available [facility] ([facility]) [address] [place], [address], 08/25/2024 15:10:59 08/25/19 25 08/25/2024 COMP. METAB OLIC PANEL (14) potassium 4.3 mmol/ L 3.5-5. 2 Not Available [facility] ([facility]) [address] [facility], [place], [address], 08/25/2024 15:10:59 08/25/19 25 08/25/2024 COMP. METAB OLIC PANEL (14) chloride 102 mmol/ L 96-106 Not Available [facility] ([facility]) [address] [place], [address], 08/25/2024 15:10:59 08/25/19 25 08/25/2024 COMP. METAB OLIC PANEL (14) carbon dioxide, total 20 mmol/ L 20-29 Not Available [facility] ([facility]) [address] [place], [address], 08/25/2024 15:10:59 08/25/19 25 08/25/2024 COMP. METAB OLIC PANEL (14) calcium 9.5 mg/dL 8.7-10 .2 Not Available [facility] ([facility]) [address] [place], [address], 08/25/2024 15:10:59 08/25/19 25 08/25/2024 COMP. METAB OLIC PANEL (14) protein, total 7.7 g/dL 6.0-8. 5 Not Available [facility] ([facility]) [address] [facility] [place], [address], 08/25/2024 15:10:59 08/25/19 25 08/25/2024 COMP. METAB OLIC PANEL (14) albumin 4.5 g/dL 3.9-4. 9 Not Available [facility] ([facility]) [address] [facility] [place], [address], 08/25/2024 15:10:59 08/25/19 25 08/25/2024 COMP. METAB OLIC PANEL (14) globulin, total 3.2 g/dL 1.5-4. 5 Not Available [facility] ([facility]) [address] [facility] [place], [address], 08/25/2024 15:10:59 08/25/19 25 08/25/2024 COMP. METAB OLIC PANEL (14) bilirubin, total 0.5 mg/dL 0.0-1. 2 Not Available [facility] ([facility]) [address] [facility] [place], [address], 08/25/2024 15:10:59 08/25/19 25 08/25/2024 COMP. METAB OLIC PANEL (14) alkaline phosphatase 122 IU/L 44-121 above high normal Not Available [facility] ([facility]) [address] [facility] [place], [address], 08/25/2024 15:10:59 08/25/19 25 08/25/2024 COMP. METAB OLIC PANEL (14) AST (SGOT) 48 IU/L 0-40 above high normal Not Available [facility] ([facility]) [address] [facility] [place], [address], 08/25/2024 15:10:59 08/25/19 25 08/25/2024 COMP. METAB OLIC PANEL (14) ALT (SGPT) 37 IU/L 0-32 above high normal Not Available [facility] ([facility]) [address] [place], [address], 08/25/2024 15:10:59 08/25/19 25 08/25/2024 HELPE R T-LYM PH-CD 4 absolute cd 4 helper 446 /uL 359-15 19 Not Available [facility] ([facility]) [address] [facility], [place], [address], 08/25/2024 15:11:00 08/25/19 25 08/25/2024 HELPE R T-LYM PH-CD 4 % cd 4 pos. lymph. 24.8 % 30.8-5 8.5 below low normal Not Available [facility] ([facility]) [address] [facility], [place], [address], 08/25/2024 15:11:00 08/25/19 25 08/25/2024 HELPE R T-LYM PH-CD 4 WBC 5.3 x10e3 /uL 3.4-10 .8 Not Available [facility] ([facility]) [address] [facility], [place], [address], 08/25/2024 15:11:00 08/25/19 25 08/25/2024 HELPE R T-LYM PH-CD 4 RBC 3.91 x10e6 /uL 3.77-5 .28 Not Available [facility] ([facility]) [address] [place], [address], 08/25/2024 15:11:00 08/25/19 25 08/25/2024 HELPE R T-LYM PH-CD 4 hemoglobin 12.7 g/dL 11.1-1 5.9 Not Available [facility] ([facility]) [address] [place], [address], 08/25/2024 15:11:00 08/25/19 25 08/25/2024 HELPE R T-LYM PH-CD 4 hematocrit 37.3 % 34.0-4 6.6 Not Available [facility] ([facility]) [address] [facility], [place], [address], 08/25/2024 15:11:00 08/25/19 25 08/25/2024 HELPE R T-LYM PH-CD 4 MCV 95 fL 79-97 Not Available [facility] ([facility]) [address] [facility], [place], [address], 08/25/2024 15:11:00 08/25/19 25 08/25/2024 HELPE R T-LYM PH-CD 4 MCH 32.5 pg 26.6-3 3.0 Not Available [facility] ([facility]) [address] [facility], [place], [address], 08/25/2024 15:11:00 08/25/19 25 08/25/2024 HELPE R T-LYM PH-CD 4 MCHC 34.0 g/dL 31.5-3 5.7 Not Available [facility] ([facility]) [address] [facility], [place], [address], 08/25/2024 15:11:00 08/25/19 25 08/25/2024 HELPE R T-LYM PH-CD 4 RDW 12.1 % 11.7-1 5.4 Not Available [facility] ([facility]) [address] [facility], [place], [address], 08/25/2024 15:11:00 08/25/19 25 08/25/2024 HELPE R T-LYM PH-CD 4 platelets 275 x10e3 /uL 150-45 0 Not Available [facility] ([facility]) [address] [facility], [place], [address], 08/25/2024 15:11:00 08/25/19 25 08/25/2024 HELPE R T-LYM PH-CD 4 neutrophils 40 % notest ab. Not Available [facility] ([facility]) [address] [facility], [place], [address], 08/25/2024 15:11:00 08/25/19 25 08/25/2024 HELPE R T-LYM PH-CD 4 lymphs 33 % notest ab. Not Available [facility] ([facility]) [address] [facility], [place], [address], 08/25/2024 15:11:00 08/25/19 25 08/25/2024 HELPE R T-LYM PH-CD 4 monocytes 12 % notest ab. Not Available [facility] ([facility]) [address] [facility], [place], [address], 08/25/2024 15:11:00 08/25/19 25 08/25/2024 HELPE R T-LYM PH-CD 4 eos 13 % notest ab. Not Available [facility] ([facility]) [address] [facility], [place], [address], 08/25/2024 15:11:00 08/25/19 25 08/25/2024 HELPE R T-LYM PH-CD 4 basos 1 % notest ab. Not Available [facility] ([facility]) [address] [facility], [place], [address], 08/25/2024 15:11:00 08/25/19 25 08/25/2024 HELPE R T-LYM PH-CD 4 neutrophils (absolute) 2.2 x10e3 /uL 1.4-7. 0 Not Available [facility] ([facility]) [address] [facility], [place], [address], 08/25/2024 15:11:00 08/25/19 25 08/25/2024 HELPE R T-LYM PH-CD 4 lymphs (absolute) 1.8 x10e3 /uL 0.7-3. 1 Not Available [facility] ([facility]) [address] [facility], [place], [address], 08/25/2024 15:11:00 08/25/19 25 08/25/2024 HELPE R T-LYM PH-CD 4 monocytes(ab solute) 0.6 x10e3 /uL 0.1-0. 9 Not Available [facility] ([facility]) [address] [place], [address], 08/25/2024 15:11:00 08/25/19 25 08/25/2024 HELPE R T-LYM PH-CD 4 eos (absolute) 0.7 x10e3 /uL 0.0-0. 4 above high normal Not Available [facility] ([facility]) [address] [place], [address], 08/25/2024 15:11:00 08/25/19 25 08/25/2024 HELPE R T-LYM PH-CD 4 baso (absolute) 0.0 x10e3 /uL 0.0-0. 2 Not Available [facility] ([facility]) [address] [place], [address], 08/25/2024 15:11:00 08/25/19 25 08/25/2024 HELPE R T-LYM PH-CD 4 immature granulocytes 1 % notest ab. Not Available [facility] ([facility]) [address] [place], [address], 08/25/2024 15:11:00 08/25/19 25 08/25/2024 HELPE R T-LYM PH-CD 4 immature grans (abs) 0.0 x10e3 /uL 0.0-0. 1 Not Available [facility] ([facility]) [address] [place], [address], 08/25/2024 15:11:00 08/25/19 25 08/25/2024 HEPAT ITIS B SURF AB QUANT hepatitis B surf Ab quant <3.5 mIU/m L immuni ty>10 below low normal Statu s of Immun ity Anti- HBs Level ----- ----- ----- --- ----- ----- ---- Incon siste nt with Immun ity 0.0 - 10.0 Consi stent with Immun ity >10.0 Not Available [facility] ([facility]) [address] [facility], [place], [address], 08/25/2024 15:11:01 08/25/19 25 08/25/2024 RPR, RFX QN RPR/C ONFIR M TP RPR NON REACTI VE nonrea ctive Not Available [facility] ([facility]) [address] [facility], [place], [address], 08/25/2024 15:11:02 08/25/19 25 08/26/2024 RNA, REAL TIME PCR (NON- GRAPH ) HIV-1 RNA by PCR <20 copie s/mL HIV-1 RNA not detec sanjeev The repor table range for this assay is 20 to 10,00 0,000 copie s HIV-1 RNA/m L. Not Available [facility] ([facility]) [address] [facility], [place], [address], 08/26/2024 13:11:23 08/25/19 25 08/26/2024 RNA, REAL TIME PCR (NON- GRAPH ) log10 HIV-1 RNA TNP log10 copy/ mL Unabl e to calcu late resul t since non-n umeri c resul t obtai delgado for compo nent test. Not Available [facility] ([facility]) [address] [facility], [place], [address], 08/26/2024 13:11:23 09/05/19 25 09/05/2024 RNA, REAL TIME PCR (NON- GRAPH ) HIV-1 RNA by PCR <20 copie s/mL HIV-1 RNA detec sanjeev The repor table range for this assay is 20 to 10,00 0,000 copie s HIV-1 RNA/m L. Not Available [facility] ([facility]) [address] [place], [address], 09/05/2024 19:09:34 09/05/19 25 09/05/2024 RNA, REAL TIME PCR (NON- GRAPH ) log10 HIV-1 RNA TNP log10 copy/ mL Unabl e to calcu late resul t since non-n umeri c resul t obtai delgado for compo nent test. Not Available [facility] ([facility]) [address] [place], [address], 09/05/2024 19:09:34 09/05/1909/05/2024 HCV ANTIB SALVADOR hep C virus Ab NON REACTI VE nonrea ctive HCV antib salvador alone does not diffe renti ate betwe en previ ously resol ira infec tion and activ e infec tion. Equiv ocal and React jn HCV antib salvador resul ts shoul d be follo wed up with an HCV RNA test to suppo rt the diagn osis of activ e HCV infec tion. Not Available [facility] ([facility]) [address] [facility], [place], [address], 09/08/2024 07:12:54 09/05/19 25 09/08/2024 CT, NG, TRICH VAG BY ARLET chlamydia by ARLET NEGATI VE negati ve Not Available [facility] ([facility]) [address] [place], [address], 09/08/2024 07:12:55 09/05/19 25 09/08/2024 CT, NG, TRICH VAG BY ARLET gonococcus by ARLET NEGATI VE negati ve Not Available [facility] ([facility]) [address] [place], [address], 09/08/2024 07:12:55 09/05/19 25 09/08/2024 CT, NG, TRICH VAG BY ARLET trich vag by ARLET NEGATI VE negati ve Not Available [facility] ([facility]) [address] [place], [address], 09/08/2024 07:12:55 09/05/19 25 09/05/2024 LIPID PANEL cholesterol, total 182 mg/dL 100-19 9 Not Available [facility] ([facility]) [address] [place], [address], 09/08/2024 07:12:56 09/05/19 25 09/05/2024 LIPID PANEL triglyceride s 415 mg/dL 0-149 above high normal Not Available [facility] ([facility]) [address] [place], [address], 09/08/2024 07:12:56 09/05/19 25 09/05/2024 LIPID PANEL HDL cholesterol 30 mg/dL >39 below low normal Not Available [facility] ([facility]) [address] [place], [address], 09/08/2024 07:12:56 09/05/19 25 09/05/2024 LIPID PANEL VLDL cholesterol jasmina 68 mg/dL 5-40 above high normal Not Available [facility] ([facility]) [address] [place], [address], 09/08/2024 07:12:56 09/05/19 25 09/05/2024 LIPID PANEL LDL chol calc ([facility]) 84 mg/dL 0-99 Not Available [facility] ([facility]) [address] [place], [address], 09/08/2024 07:12:56 09/05/19 25 09/05/2024 COMP. METAB OLIC PANEL (14) glucose 94 mg/dL 70-99 Not Available [facility] ([facility]) [address] [place], [address], 09/08/2024 07:12:57 09/05/19 25 09/05/2024 COMP. METAB OLIC PANEL (14) BUN 12 mg/dL 6-20 Not Available [facility] ([facility]) [address] [place], [address], 09/08/2024 07:12:57 09/05/19 25 09/05/2024 COMP. METAB OLIC PANEL (14) creatinine 0.78 mg/dL 0.57-1 .00 Not Available [facility] ([facility]) [address] [facility], [place], [address], 09/08/2024 07:12:57 09/05/19 25 09/05/2024 COMP. METAB OLIC PANEL (14) eGFR 99 mL/mi n/1.7 3 >59 Not Available [facility] ([facility]) [address] [facility], [place], [address], 09/08/2024 07:12:57 09/05/19 25 09/05/2024 COMP. METAB OLIC PANEL (14) BUN/creatini ne ratio 15 9-23 Not Available [facility] ([facility]) [address] [facility], [place], [address], 09/08/2024 07:12:57 09/05/19 25 09/05/2024 COMP. METAB OLIC PANEL (14) sodium 136 mmol/ L 134-14 4 Not Available [facility] ([facility]) [address] [facility] [place], [address], 09/08/2024 07:12:57 09/05/19 25 09/05/2024 COMP. METAB OLIC PANEL (14) potassium 4.2 mmol/ L 3.5-5. 2 Not Available [facility] ([facility]) [address] [place], [address], 09/08/2024 07:12:57 09/05/19 25 09/05/2024 COMP. METAB OLIC PANEL (14) chloride 100 mmol/ L 96-106 Not Available [facility] ([facility]) [address] [place], [address], 09/08/2024 07:12:57 09/05/19 25 09/05/2024 COMP. METAB OLIC PANEL (14) carbon dioxide, total 20 mmol/ L 20-29 Not Available [facility] ([facility]) [address] [place], [address], 09/08/2024 07:12:57 09/05/19 25 09/05/2024 COMP. METAB OLIC PANEL (14) calcium 9.8 mg/dL 8.7-10 .2 Not Available [facility] ([facility]) [address] [place], [address], 09/08/2024 07:12:57 09/05/19 25 09/05/2024 COMP. METAB OLIC PANEL (14) protein, total 8.4 g/dL 6.0-8. 5 Not Available [facility] ([facility]) [address] [place], [address], 09/08/2024 07:12:57 09/05/19 25 09/05/2024 COMP. METAB OLIC PANEL (14) albumin 4.9 g/dL 3.9-4. 9 Not Available [facility] ([facility]) [address] [place], [address], 09/08/2024 07:12:57 09/05/19 25 09/05/2024 COMP. METAB OLIC PANEL (14) globulin, total 3.5 g/dL 1.5-4. 5 Not Available [facility] ([facility]) [address] [place], [address], 09/08/2024 07:12:57 09/05/19 25 09/05/2024 COMP. METAB OLIC PANEL (14) bilirubin, total 0.9 mg/dL 0.0-1. 2 Not Available [facility] ([facility]) [address] [place], [address], 09/08/2024 07:12:57 09/05/19 25 09/05/2024 COMP. METAB OLIC PANEL (14) alkaline phosphatase 129 IU/L 44-121 above high normal Not Available [facility] ([facility]) [address] [facility], [place], [address], 09/08/2024 07:12:57 09/05/19 25 09/05/2024 COMP. METAB OLIC PANEL (14) AST (SGOT) 44 IU/L 0-40 above high normal Not Available [facility] ([facility]) [address] [facility] [place], [address], 09/08/2024 07:12:57 09/05/19 25 09/05/2024 COMP. METAB OLIC PANEL (14) ALT (SGPT) 32 IU/L 0-32 Not Available [facility] ([facility]) [address] [facility] [place], [address], 09/08/2024 07:12:57 09/05/19 25 09/04/2024 HELPE R T-LYM PH-CD 4 WBC 4.2 x10e3 /uL 3.4-10 .8 Not Available [facility] ([facility]) [address] [facility], [place], [address], 09/08/2024 07:12:59 09/05/19 25 09/04/2024 HELPE R T-LYM PH-CD 4 RBC 3.87 x10e6 /uL 3.77-5 .28 Not Available [facility] ([facility]) [address] [place], [address], 09/08/2024 07:12:59 09/05/19 25 09/04/2024 HELPE R T-LYM PH-CD 4 hemoglobin 12.0 g/dL 11.1-1 5.9 Not Available [facility] ([facility]) [address] [place], [address], 09/08/2024 07:12:59 09/05/19 25 09/04/2024 HELPE R T-LYM PH-CD 4 hematocrit 36.8 % 34.0-4 6.6 Not Available [facility] ([facility]) [address] [place], [address], 09/08/2024 07:12:59 09/05/19 25 09/04/2024 HELPE R T-LYM PH-CD 4 MCV 95 fL 79-97 Not Available [facility] ([facility]) [address], [place], [address], 09/08/2024 07:12:59 09/05/19 25 09/04/2024 HELPE R T-LYM PH-CD 4 MCH 31.0 pg 26.6-3 3.0 Not Available [facility] ([facility]) [address], [place], [address], 09/08/2024 07:12:59 09/05/19 25 09/04/2024 HELPE R T-LYM PH-CD 4 MCHC 32.6 g/dL 31.5-3 5.7 Not Available [facility] ([facility]) [address] [facility], [place], [address], 09/08/2024 07:12:59 09/05/19 25 09/04/2024 HELPE R T-LYM PH-CD 4 RDW 12.2 % 11.7-1 5.4 Not Available [facility] ([facility]) [address] [facility], [place], [address], 09/08/2024 07:12:59 09/05/1909/04/2024 HELPE R T-LYM PH-CD 4 platelets 234 x10e3 /uL 150-45 0 Not Available [facility] ([facility]) [address] [facility], [place], [address], 09/08/2024 07:12:59 09/05/19 25 09/04/2024 HELPE R T-LYM PH-CD 4 neutrophils 38 % notest ab. Not Available [facility] ([facility]) [address] [facility], [place], [address], 09/08/2024 07:12:59 09/05/19 25 09/04/2024 HELPE R T-LYM PH-CD 4 lymphs 39 % notest ab. Not Available [facility] ([facility]) [address] [facility], [place], [address], 09/08/2024 07:12:59 09/05/19 25 09/04/2024 HELPE R T-LYM PH-CD 4 monocytes 11 % notest ab. Not Available [facility] ([facility]) [address] [facility], [place], [address], 09/08/2024 07:12:59 09/05/19 25 09/04/2024 HELPE R T-LYM PH-CD 4 eos 11 % notest ab. Not Available [facility] ([facility]) [address] [facility], [place], [address], 09/08/2024 07:12:59 09/05/19 25 09/04/2024 HELPE R T-LYM PH-CD 4 basos 1 % notest ab. Not Available [facility] ([facility]) [address] [facility], [place], [address], 09/08/2024 07:12:59 09/05/19 25 09/04/2024 HELPE R T-LYM PH-CD 4 neutrophils (absolute) 1.6 x10e3 /uL 1.4-7. 0 Not Available [facility] ([facility]) [address] [place], [address], 09/08/2024 07:12:59 09/05/19 25 09/04/2024 HELPE R T-LYM PH-CD 4 lymphs (absolute) 1.6 x10e3 /uL 0.7-3. 1 Not Available [facility] ([facility]) [address] [facility], [place], [address], 09/08/2024 07:12:59 09/05/19 25 09/04/2024 HELPE R T-LYM PH-CD 4 monocytes(ab solute) 0.5 x10e3 /uL 0.1-0. 9 Not Available [facility] ([facility]) [address] [facility], [place], [address], 09/08/2024 07:12:59 09/05/19 25 09/04/2024 HELPE R T-LYM PH-CD 4 eos (absolute) 0.4 x10e3 /uL 0.0-0. 4 Not Available [facility] ([facility]) [address] [facility], [place], [address], 09/08/2024 07:12:59 09/05/19 25 09/04/2024 HELPE R T-LYM PH-CD 4 baso (absolute) 0.0 x10e3 /uL 0.0-0. 2 Not Available [facility] ([facility]) [address] [place], [address], 09/08/2024 07:12:59 09/05/19 25 09/04/2024 HELPE R T-LYM PH-CD 4 immature granulocytes 0 % notest ab. Not Available [facility] ([facility]) [address] [facility], [place], [address], 09/08/2024 07:12:59 09/05/19 25 09/04/2024 HELPE R T-LYM PH-CD 4 immature grans (abs) 0.0 x10e3 /uL 0.0-0. 1 Not Available [facility] ([facility]) [address] [place], [address], 09/08/2024 07:12:59 09/05/19 25 09/05/2024 HELPE R T-LYM PH-CD 4 absolute cd 4 helper 397 /uL 359-15 19 Not Available [facility] ([facility]) [address] [facility], [place], [address], 09/08/2024 07:12:59 09/05/19 25 09/05/2024 HELPE R T-LYM PH-CD 4 % cd 4 pos. lymph. 24.8 % 30.8-5 8.5 below low normal Not Available [facility] ([facility]) [address] [facility], [place], [address], 09/08/2024 07:12:59 09/05/19 25 09/05/2024 HEMOG LOBIN A1C hemoglobin A1C 5.0 % 4.8-5. 6 Predi abete s: 5.7 - 6.4 Diabe lilia: >6.4 Glyce ivanna contr ol for adult s with diabe lilia: <7.0 Not Available [facility] ([facility]) [address] [facility], [place], [address], 09/08/2024 07:13:00 09/05/19 25 09/05/2024 RPR, RFX QN RPR/C ONFIR M TP RPR NON REACTI VE nonrea ctive Not Available [facility] ([facility]) [address] [facility], [place], [address], 09/08/2024 07:13:01 05/22/19 24 US, pelvi s, trans abdom inal + trans vagin al No observ ation record ed. [email or web address] Not Available 05/22 11:26:03 06/03/19 24 US, pelvi s, trans abdom inal + trans vagin al No observ ation record ed. [email or web address] Not Available 2023 09:23:16 Result Notes None recorded. 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 Active Theresa Jason MD Attn: Almas hurtado,[address] [facility], [place], [address], [facility] 2 12:52:18 Histoplas mosis 16024153 Active Theresa Jason MD Attn: Almas hurtado,[address] [facility], [place], [address], [place] [facility] 5 09:22:24 AIDS 55964234 Active Theresa Jason MD Attn: Almas hurtado,[address] [facility], [place], [address], [place] [facility] 5 09:22:24 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 Theresa Jason MD Attn: Niecymilady hurtado,[address] [facility], [place], [address], [place] [facility] 5 12:29:13 Bacterial vaginosis 151529210 Active 2020 Wei Sarkar null, [place] [facility] 1 08:00:54 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 2020 Wei [place]arkar [place] [facility] 1 08:01:08 History of SARS-CoV- 2 351838307775 282600 Active 2020 Theresa Jason MD Attn: Niecymilady hurtado,[address] [facility], [place], [address], [place] [facility] 1 12:51:44 Elevated blood-pre ssure reading without diagnosis of hypertens ion 810235104 Active 2022 Theresa Jason MD Attn: Niecymilady hurtado,[address] [place], [address], [place] [facility] 3 10:40:07 Impaired fasting glycemia 715147712 Active 2023 Theresa Jason MD Attn: Niecymilady hurtado,[address] [place], [address], [place] [facility] 4 12:05:21 32472638 Completed 202306/03/2023 Lorne Miller [place] [facility] 4 12:31:31 Maternal obesity complicat ing , childbirt h and the pu[place]per[place] m, antepartu m 064237566230 Active 2023 Lorne [place] [facility] 4 12:31:27 Maternal obesity complicat ing , childbirt h and the puerperiu m, antepartu m 269201219194 Completed 2023 Lorne [place] [facility] 4 12:31:27 Past history of gestation al diabetes mellitus 362676505 Completed 2023 Lorne [place] [facility] 4 12:31:27 Past history of gestation al diabetes mellitus 121449293 Active 2023 Lorne [place] [facility] 4 12:31:27 Human immunodef iciency virus complicat ing childbirt h and the puerperiu m 012992694 Completed 2023 Lorne [place] [facility] 4 12:31:27 Human immunodef iciency virus complicat ing childbirt h and the puerperiu m 750742919 Active 2023 Lorne [place] [facility] 4 12:31:27 Past history of section 157737033 Active 2023 Lorne [place] [facility] 4 12:31:28 Past history of section 650650871 Completed 2023 Lorne [place] [facility] 4 12:31:27 Subchorio mich hematoma 154060905 Active 2023 Lorne [place] [facility] 4 12:31:27 Subchorio mich hematoma 952469635 Completed 2023 Lorne [place] [facility] 4 12:31:27 Miscarria ge in first trimester 19445869 Active 2023 Elio Quezada MD Attn: Almas hurtado,[address] [place], [address], [place] [facility] 4 10:40:18 Miscarria ge in first trimester 43971638 Completed 2023 Elio Quezada MD Attn: Almas g,[address] [facility], [place], [address], [facility] [place] 4 10:40:18 Problem Notes None recorded. Procedures Surgical History Date Name Laterality Status Provider Name and Address Organization Details Recorded Time Date of Last Pap Smear completed Ilana Mcgill MA [facility] 05/13/2023 11:57:37 8 Caesarean Section completed Theresa Jason MD Attn: Accounting, [facility], [place], [address], [facility] [place] 07/11/2020 15:02:40 Imaging Results None recorded. Procedure Notes None recorded. Medical Equipment None Reported. Allergies No known drug allergies Medications Name Sig Start Date Stop Date Status Note LastModified by Organization Details LastModified Time medroxyprog esterone 10 mg tablet Take 1 tablet every day by oral route as directed for 10 days. 11/19 completed Not Available Not Available Not Available metronidazo le 0.75 % (37.5 mg/5 gram) vaginal gel Insert 1 applicato rful every day by vaginal route at bedtime for 5 days. 03/08 completed Not Available Not Available Not Available penicillin V potassium 500 mg tablet Take 1 tablet twice a day by oral route for 7 days. 03/08 completed Not Available Not Available Not Available metronidazo le 500 mg tablet Take 1 tablet twice a day by oral route. 09/20 completed Not Available Not Available Not Available sulfamethox azole 800 mg-trimetho prim 160 mg tablet TOME USMAN TABLETA BLACK(3) VECES POR SEMANA. (TAKE ONE TABLET 3 TIMES A WEEK) 07/11 completed Not Available Not Available Not Available OneTouch Ultra Test strips TEST AFTER FASTING AND 1 HOUR AFTER EACH MEAL active Not Available Not Available No t Available benzonatate 100 mg capsule TAKE 1 CAPSULE BY MOUTH THREE TIMES DAILY FOR 5 DAYS NEEDED 05/28 completed Not Available Not Available Not Available cephalexin 500 mg capsule TAKE 1 CAPSULE BY MOUTH EVERY 6 HOURS AROUND THE CLOCK FOR 7 DAYS 05/13 completed Not Available Not Available Not Available Bicillin L-A 2,400,000 unit/4 mL intramuscul ar syringe Inject 2.4 million units every day by intramusc ular route as directed for 1 day. 05/28 completed Not Available Not Available Not Available aspirin 81 mg chewable tablet active Not Available Not Available Not Available mupirocin 2 % topical ointment APPLY A SMALL AMOUNT TO THE AFFECTED AREA THREE TIMES DAILY 05/28 completed Not Available Not Available Not Available pseudoephed rine 60 mg tablet Take 1 tablet every 6 hours by oral route as directed for 3 days, for Congestio n. 11/05 completed Not Available Not Available Not Available itraconazol e 100 mg capsule Take 2 capsules twice a day by oral route for 30 days. 07/11 completed Not Available Not Available Not Available azithromyci n 600 mg tablet Take 2 tablet(s) every week by oral route for 28 days. 07/11 completed Not Available Not Available Not Available azithromyci n 500 mg tablet Take 2 tablets every week by oral route for 3 days. active Not Available Not Available No t Available ciprofloxac in 0.3 %-dexametha sone 0.1 % ear drops,suspe nsion Instill 4 drops twice a day by otic route as directed for 7 days, for Ear pain. 11/05 completed Not Available Not Available Not Available Truvada 200 mg-300 mg tablet 07/11 completed Not Available Not Available Not Available 28 mg iron-800 mcg tablet TAKE 1 TABLET BY MOUTH EVERY DAY active Not Available Not Available No t Available Tivicay 50 mg tablet Take 1 tablet every day by oral route for 30 days. 07/11 completed Not Available Not Available Not Available Liletta 20.4 mcg/24 hr (up to 8 years) 52 mg intrauterin e device Take by intrauter ine route. 09/20 completed Not Available Not Available Not Available Biktarvy 50 mg-200 mg-25 mg tablet TAKE 1 TABLET BY MOUTH EVERY DAY DIRECTED active Not Available Not Available No t Available OneTouch Ultra2 Meter USE TO TEST BLOOD SUGARS active Not Available Not Available No t Available OneTouch Delica Plus Lancet 33 gauge TEST AFTER FASTING AND ONE HOUR AFTER EACH MEAL active Not Available Not Available No t Available Vitals Date Recorded Body height Body mass index (BMI) Body weight Heart rate Oxygen saturation Oxygen saturation in Arterial blood by Pulse oximetry Respiratory rate Body temperature Systolic And Diastolic Provider Name and Address Organization Details Last Updated DateTime 4 134.62 cm 42.3 kg/m2 81872.7 5 g 94 /min 97 % 97 % 16 /min 97.4 [degF] 130/84 mm[Hg] Valerie Crespo MA [facility] 4 14:39:20 Date Recorded Body height Body mass index (BMI) Body weight Heart rate Oxygen saturation Oxygen saturation in Arterial blood by Pulse oximetry Respiratory rate Systolic And Diastolic Provider Name and Address Organization Details Last Updated DateTime 5 134.62 cm 41.2 kg/m2 17838.6 6 g 78 /min 98 % 98 % 16 /min 104/70 mm[Hg] Valerie Crespo MA [facility] 5 10:19:40 Date Recorded Body height Body mass index (BMI) Body weight Heart rate Oxygen saturation Oxygen saturation in Arterial blood by Pulse oximetry Respiratory rate Systolic And Diastolic Provider Name and Address Organization Details Last Updated DateTime 4 134.62 cm 42 kg/m2 00727.5 2 g 106 /min 96 % 96 % 14 /min 116/84 mm[Hg] Valerie Crespo MA [facility] 4 15:36:09 Date Recorded Body height Body mass index (BMI) Body weight Heart rate Body temperature Oxygen saturation Oxygen saturation in Arterial blood by Pulse oximetry Systolic And Diastolic Provider Name and Address Organization Details Last Updated DateTime 4 134.62 cm 43.6 kg/m2 36176.0 7 g 97 /min 97.4 [degF] 97 % 97 % 116/80 mm[Hg] Jessica Griffith MA [facility] 4 11:40:22 Social History Question Answer Notes LastModified by Organizat ion Details LastModified Time Tobacco Smoking Status Never Smoker Theresa Jason MD Attn: [facility], [place], [address], [facility] 06/11/2014 11:40:53 Do You Have An Advance Directive? No Information not available 07/11/2020 Are You Blind Or Do You Have Difficulty Seeing? No Information not available 07/11/2020 Is Blood Transfusion Acceptable In An Emergency? Yes Information not available 07/19/2020 What Is Your Level Of Caffeine Consumption? Occasional Information not available 07/19/2020 Have You Been To An Area Known To Be High Risk For COVID-19? Yes Information not available 07/11/2020 Are You Deaf Or Do You Have Serious Difficulty Hearing? No Information not available 07/11/2020 What Type Of Diet Are You Following? REGULAR Information not available 07/11/2020 Are There Any Guns Present In Your Home? No Information not available 07/11/2020 Date Of 1st HIV Medical Visit 03/13/2014 [email or web address] Information not available 05/03/2015 [facility] Slide Cap On Charges 0 [email or web address] Information not available 10/11/2020 HIV Dx By [facility] No Informatio n not available 07/07/2020 [facility] HIV Risk Counseling #1 04/06/2024 [email or web address] Information not available 04/06/2024 RW Visit Frequency 4 Months Information not available 07/07/2020 New Patient Type At Intake Returning. 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 09/04/2024 Information not available 09/04/2024 How Many Children Do You Have? 3 Information not available 07/19/2020 Do You Use Protection During Sex? No Information not available 07/19/2020 What Is Your Relationship Status? Information not available 07/19/2020 Do You Use Your Seat Belt Or Car Seat Routinely? Yes Information not available 07/11/2020 Are You Sexually Active? Yes Information not available 07/19/2020 Do You Have Smoke And Carbon Monoxide Detectors In Your Home? Yes Information not available 07/11/2020 Do You Use Sunscreen Routinely? No Information not available 07/11/2020 Has Tobacco Cessation Counseling Been Provided? Yes Information not available 04/26/2023 On What Date Was Tobacco Cessation Counseling Provided? 04/06/2024 [email or web address] Information not available 04/06/2024 Sex: Female Functional Status Question Answer Note LastModified by Organizat ion Details LastModified Time Do you use any illicit or recreational drugs? No Information not available 07/11/2020 Do you or have you ever used any other forms of tobacco or nicotine? No Information not available 07/11/2020 What is your level of alcohol consumption? None [email or web address] Information not available 05/13/2023 Are you currently employed? No Information not available 07/11/2020 Are you able to care for yourself independently? Yes Information not available 07/11/2020 What is your exercise level? Occasional Information not available 07/19/2020 Mental Status None recorded. Family History Relationship Description Onset Age of this Age Resolved Age Notes LastModified by Organization Details LastModified Time Maternal Grandmother Family history of malignant neoplasm [email or web address] Not available 2020 14:46:26 Mother Diabetes mellitus [email or web address] Not available 2020 12:56:27 Medical History Condition Response Coronary Artery Disease N Other Y Atrial Fibrillation N High Blood Pressure N Depression N COPD N Blood Clots N Anxiety Disorder N Muscle, Joint, or Bone Problems N Acid Reflux (GERD) N Cancer N Stroke N High Cholesterol N Liver Disease N Headaches N Kidney or Bladder Problems N Thyroid Problems N GI Problems N Skin Problems N Anemia N Heart Attack ([place]) N Diabetes N Seizures/Epilepsy N Asthma N Allergies N Hepatitis N Heart Failure N Osteoporosis N Gynecological History Statement/Question Response Date of LMP 03/15/2023 Menses Monthly N HPV Vaccine N Date of Last Pap Smear 07/19/2020 Duration of Flow (days) 3 Current Control Method None Age at First Child 24 LMP Approximate Desired Control Method Unknown Obstetrics History GPAL:G 5 P 3 0 1 3 Type Value Multiple Births 0 Full Term 3 Induced 0 Spontaneous 1 Premature 0 Living 3 Ectopics 0 Total 5 Immunizations Vaccine Type Date Status Note Provider Nam e and Address Organization Details Recorded Time Influenza, split virus, quadrivalent, preservative 1 completed Valerie Cresp[place], [place] [facility] 07/11/2020 14:45:22 Tdap 7 completed Theresa Jason MD Attn: Accounting[address] [place], [address], [place] [facility] 07/19/2020 10:23:24 Hep B, adult 6 completed Theresa Jason MD Attn: Accounting[address] [place], [address], [place] [facility] 07/19/2020 10:24:13 Hep B, adult 6 completed Theresa Jason MD Attn: Accounting[address] [place], [address], [place] [facility] 07/19/2020 10:24:43 Hep B, adult 7 completed Theresa Jason MD Attn: Accounting[address] [place], [address], [place] [facility] 07/19/2020 10:25:04 Pneumococcal conjugate PCV 13 6 completed Theresa Jason MD Attn: Accounting,[address] [facility], [place], [address], [place] [facility] 07/19/2020 10:27:19 Tdap 5 completed Not Available [facility] 04/25/2019 02:31:09 pneumococcal polysaccharide PPV23 5 completed Not Available [facility] 04/25/2019 02:39:15 Influenza, split virus, quadrivalent, preservative 1 [place] [facility] 03/08/2021 13:19:53 pneumococcal polysaccharide PPV23 1 [place] [facility] 03/08/2021 13:19:08 Influenza, split virus, quadrivalent, PF 4 [place] [facility] 04/26/2023 12:39:52 HepB-CpG 5 [place] [facility] 09/04/2024 11:45:28 Past Encounters Encounter ID Performer Location Encounter Start Date Encounter Closed Date Diagnosis/Indication Diagnosis SNOMED-CT Code Diagnosis ICD10 Code Diagnosis IMO Codes Diagnosis Note [id number] Theresa Jason MD [facility] (Adult Med) [address] [place] [phone] 06/11/2014 10:35:31 06/11/2014 12:01:14 Human immunodeficiency virus infection 74832101 28 y/o HF who presents to this office as a new patient, she had presented to [facility] after a transfer from an OSH, she was diagnosed with Histoplasm osis/GAS/S eptic Shock/HIV/ AIDS cd4 3 HIV VL 5 million She is stable on Tivicay/Tr uvada as HAART. She is on Azithromyc in 1200mg po weekly for RUPINDER prophylaxi s, Bactrim DS one po TIW for PCP prophylaxi s and Itraconazo le 2 capsules bid. I have reviewed her medication regimen with her in detail, she understand s the role of each drug, the importance of labs and the need to keep her follow up appointmen ts. Records from [facility] will be useful. She asked whether she can return to work, I have left this option to her. Histoplasmosis 24241478 General ex amination of patient 386005670 Schedule Pap smear, close follow up in 4 weeks [id number] MD Melina Seaman (Adult Med) [address] [place] [phone] 08/04/2014 10:51:57 08/04/2014 13:40:44 Tuberculosis screening 398512551 Administra tion of diphtheria and tetanus vaccine 70076949 Human immunodeficiency virus infection 02300798 Histoplasm osis/GAS/S eptic Shock/HIV/ AIDS CD$ 118, previously 3 HIV VL 230 from 5 million She is stable on Tivicay/Tr uvada as HAART. She is on Azithromyc in 1200mg po weekly for RUPINDER prophylaxi s, Bactrim DS one po TIW for PCP prophylaxi s and Itraconazo le 2 capsules bid. I have reviewed her results with her and I have urged her to bring all her medication s with her on her follow up visit. Pap smear needed . 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 963834487 Posiitive HepBS Ag [id number] Theresa [facility] MD [facility] [address] [place] [phone] 08/26/2014 10:09:48 08/26/2014 13:27:58 Administration of pneumococcal vaccine 97900969 [id number] MD Melina Seaman (Adult Med) [address] [place] [phone] 07/11/2020 14:04:37 07/12/2020 11:03:11 Human immunodeficiency virus infection 71055405 B20 Stable on [facility] Records Tuberculos is screening 952258909 Z11.7 Screening for malignant neoplasm of cervix 623673988 Z12.4 Immunization due 9013512 08 Z28.3 Body mass index 40+ - severely obese 250141547 Z68.41 [id number] MD Melina Cisneros ([facility]) [address] [place] [phone] 07/19/2020 11:52:02 07/25/2020 08:23:16 Gynecologic examination 56441260 Z01.419 Human immunodeficiency virus infection 67573019 B20 Exposure t o sexually transmissible disorder 146309092 Z20.2 Surveillan ce of intrauterine device contraception done 2496860375 13310 Z30.40 [id number] MD Melina Seaman (Adult Med) [address] [place] [phone] 03/08/2021 12:07:46 03/09/2021 11:20:02 Needs influenza immunization 005456569 Z28.3 History of SARS-CoV-2 29 91200082 48984986 Z86.16 Impaired f asting glycemia 692769369 R73.01 Human immunodeficiency virus infection 38426231 B20 Stable on [facility] Records Administra tion of pneumococcal vaccine 61818722 Z23 Elevated blood-pressure reading without diagnosis of hypertension 699703810 R03.0 [id number] ELISE DICKINSON (Adult Med) [address] [place] [phone] 04/18/2021 10:26:11 04/20/2021 12:46:26 Removal of intrauterine device 39385211 Z30.432 Presents today for IUD removal, ready to get again.She had the Liletta placed in 2018 after her most recent delivery. Does not have regular menstrual cycles with IUD, LMP 06/21/2020. Last pap smear 07/2020 was normal.- IUD strings not present on exam today, unable to locate within cervical os using Cytobrush Trying to conceive 50430 9001 Z31.9 35 year old female with a history of HIV presents today for IUD removal.Sh jasbir had the Liletta placed in 2018 after her most recent delivery. Does not have regular menstrual cycles with IUD, LMP 06/21/2020. She wants IUD out today because ready to get again. Last pap smear 07/2020 was normal.- need to remove IUD first, completing work-up on IUD now- patient aware fertility will return immediatel y after removal- vitamins sent to pharmacy to start taking once IUD is removed IUD threads lost 7391540 03 T83.89XA On PE: IUD strings not present on exam today, unable to locate within cervical os using Cytobrush- will order pelvic US today to evaluate location of IUD Vaginal di scharge problem 171885456 N89.9 Admits to intermitte nt spotting recently, mild pelvic pain, and yellow vaginal discharge. She wants IUD out today because ready to get again. Last pap smear 07/2020 was normal.- nuswab completed- inferior aspect of cervix with macerated, erythemato us, friable tissue [id number] MD Melina Seaman (Adult Med) [address] [place] [phone] 0 09/20/2021 12:00:50 09/21/2021 09:49:20 Human immunodeficiency virus infection 51184554 B20 Stable on BIK 1035/<20 ()Complian ce and HIV risk counseling were discussedL absRivone coronado History of SARS-CoV-2 29 [id number] 02873777 Z86.16 SARS-CoV-2 mRNA vaccine declined 2300143680 Z28.21 Trying to conceive 25301 9001 Z31.9 Restart vitamins and once she misses her period, she should come in for a test. She is aware that she will need to be seen in the HIV Ob clinic in [facility]. 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: 1( 2), NR ()The results were discussed in detail and all her questions were answered.E khoa though her titer is low, I will treat with Bicillin, especially since she is planning conception .Partner notificati on neededLMP 09/30/2021- 2De tailed explanatio n with the help of the manganese heater Pt education [facility] [place] [facility] Body mass index 40+ - severely obese 658327695 Z68.41 Human immunodeficiency virus infection 10420363 B20 Stable on QKV003/<20 (10/04/2021 )1035/<20 ()Complian ce and HIV risk counseling were discussedL [facility]Rx [facility] [id number] MD Melina Seaman (Adult Med) [address] [place] [address] [phone] 0 05/28/2022 12:22:48 05/30/2022 09:20:23 Human immunodeficiency virus infection 03920540 B20 Stable on TYP624/<20 (04/13/2022) 464/<20 (10/04/2021 )1035/<20 ()Complian ce and HIV risk counseling were discussedC ontinue BIKRx [facility] test positive 136878384 Z32.01 [id number] MD Melina Seaman (Adult Med) [address] [place] [address] [phone] 0 08/09/2022 12:05:11 08/13/2022 09:15:25 Dizziness 953126022 R42 Tuberculos is screening 471989224 Z11.7 Human immunodeficiency virus infection 92323263 B20 Stable on HMV211/<20 (04/13/2022) 464/<20 (10/04/2021 )1035/<20 ()Complian ce and HIV risk counseling were discussedC ontinue BIKRx [facility] Elevated blood-pressure reading without diagnosis of hypertension 204191768 R03.0 Uniform ab dominal distention 980156037 R14.0 Malaise and fatigue 2717 74086 R53.83 [id number] ELISE DICKINSON (Adult Med) [address] [place] [address] [phone] 09/13/2022 11:35:55 09/14/2022 15:11:14 Miscarriage 72799148 O03.9 LMP 03/2022. She ended up going to [facility] 06/2022 due to vaginal bleeding and diagnosed with threatened miscarriag e. Her levels trended back down to zero by the OBGYN team upstairs. She was trying to get at the time. Human immunodeficiency virus infection 39387260 B20 History of HIV and following with Dr. Jason for primary care and HIV care Secondary amenorrhea 156 789830 N91.1 LMP 03/2022. She ended up going to [facility] 06/2022 due to vaginal bleeding and diagnosed with threatened miscarriag e. She has not restarted her menstrual cycles since her miscarriag e. Admits to an increase in size of her abdomen with no known cause, recently had work-up on this issue by her PCP. Menses were monthly and regular before her 03/2022.- labs and US ordered to look for causes of amenorrhea - f/u in 1 month to discuss findings Gynecologi c examination 67808444 Z01.419 Last pap smear 07/19/2020- discussed with patient today, plan to repeat again 07/2023 Depression screening 171 868740 Z13.31 PHQ 2/9 was negative in office today (0 out of 27) Morbid obesity 877084088 E66.01 Advised decreased portion sizes, good food choices, limited eating out or fast food and eliminate soda and juice from diet. Advised physical activity daily and offered encouragem ent to continue with positive changes made so far. [id number] MD Melina Seaman (Adult Med) [address] [place] [address] [phone] 11/19/2022 09:56:12 11/20/2022 12:47:03 Human immunodeficiency virus infection 75628085 B20 HIV VL 320, CD4 516 on 08/09/2022, blip?, failure?Co ntinue BIKLabs OV 08/09/2022St able on KVH550/<20 (04/13/2022) 464/<20 (10/04/2021 )1035/<20 ()Complian ce and HIV risk counseling were discussedC neto coronado Elevated blood-pressure reading without diagnosis of hypertension 347329015 R03.0 Body mass index 40+ - severely obese 141444617 Z68.41 [id number] MD Melina Seaman (Adult Med) [address] [place] [address] [phone] 04/16/2023 11:39:06 04/18/2023 09:04:05 Human immunodeficiency virus infection 86463261 B20 HIV VL <20 on BiktarvyLa bs OV 11/19/2022H IV VL 320, CD4 516 on 08/09/2022, blip?, failure?Co ntinue [facility]Labs OV 08/09/2022St able on DSJ779/<20 (04/13/2022) 464/<20 (10/04/2021 )1035/<20 ()Complian ce and HIV risk counseling were discussedC ontinue B[facility]Rx [facility] Body mass index 40+ - severely obese 260281710 Z68.41 Impaired f asting glycemia 849907481 R73.01 Discussed Night sweats 08763385 R6 1 [id number] MD Melina Seaman (Adult Med) [address] [place] [address] [phone] 04/26/2023 10:43:41 04/30/2023 12:57:36 Ingrowing nail of toe of left foot 0489363796 9259204 L60.0 Trying to conceive 62007 9001 Z31.9 On vitamins Human immunodeficiency virus infection 40623771 B20 HIV VL <20 on BiktarvyLa bs OV 11/19/2022H IV VL 320, CD4 516 on 08/09/2022, blip?, failure?Co ntinue BIKLabs OV 08/09/2022St able on NLU704/<20 (04/13/2022) 464/<20 (10/04/2021 )1035/<20 ()Complian ce and HIV risk counseling were discussedC ontinue B[facility]Rx [facility] Administra tion of influenza vaccine 02445278 Z23 test positive 453483582 Z32.01 [id number] MD Melina SOTELO (TRAINMAN) [address] [place] [address] [phone] 05/13/2023 11:28:48 06/06/2023 14:23:12 Routine care 723514572 Z34.91 - pt agreed to have initial labs done at today's visit minus HIV as she has a known postive hx- dating U/S + nuswab to be done at next appt Urine preg dana test positive 347983847 Z32.01 OB plan: 37 y/o ; ROYAL 12/20/23 based on LMPPre-Pre gnancy Weight: 1790, BMI: elevatedPr e-Eclampsi a Risk: pos Continuity Resident: Dr Jackson melania Risk Level: highProble m List:-adva nced maternal age- hx of gestationa l DM in prior - HIV postive status on ART. INITIAL LABS Date: 05/13/23Bloo d Type:Rh Type:Antib salvador Screen:CBC :VDRL/RPR: Urine Culture:HB sAg:HepC:H IV:Rubella :Varicella :CF:SS: consistent withUDS: Dating US: DateLMP: GA ROYAL: Patient is of dating.DUS : Date AUA: ROYAL: Discrepanc yEDD: Based on Pap:Vagina l Cultures: Yeast: ;BV:GC:; Chlamydia: ;Trich: Sequential /QUAD/Mate rniT21:; consistent with Anatomy Scan: 26-28 weeks: DateGTT: ; 3HR GTTCBC:Uri nalysis:HI V:RPRTdap: Date:Rhoga m: Date: 36 weeksVagin al Cultures: Yeast: ;BV:GC:; Chlamydia: ;Trich:GBS Limited US:Situati onal Awareness: Support Person(s): Baby Name(s):[place]:PH Q9: GAD7:ACES: Resilience :SDOH:Dai red delivering facility:W illing to participat e in group visits:Jacky nning to breastfeed :Circumcis ionEpidura lPost-part um contracept ionOpen to vaccinatio n:Tdap:COV ID:Flu:Mariam e visits ok: Human immunodeficiency virus complicating childbirth and the puerperium 045588862 O98.711 - pt has a hx of HIV currently has undetectab le titer levels- advised pt to continue taking current ART regimen of biktarvy- will place referral to [facility] as this is a high risk , will also check T-cells levels at this time Multigravi da of advanced maternal age 257375274 O09.521 - pt is 37 yo which makes her of advanced maternal age, was planned pt plans to keep - due to age, hx of gestationa l DM in prior pregnancie s and also HIV status pt will be co-managed with MFM until closer to delivery date- pt also at moderate risk of pre-eclamp jossie because of age and obesity so counseled patient on use of low-dose (81mg) ASA after 12 weeks Past pregn melania history of gestational diabetes mellitus 230004652 Z86.32 - see A&P under multigravi da of advanced maternal age- pt to have GTT at next visit Maternal o besity complicating , childbirth and the puerperium, antepartum 0656323876 07 O99.211 see A&P under multigravi da of advanced maternal age Viral syndrome 875529227 B34.9 - pt endorsed headaches with light headedness , cough and physical exam significan t for wheezing RLL- COVID/Flu swab -ve, advised pt on supportive measures- counseled on notifying providers if headaches persist or symptoms worsen Past pregn melania history of section 647504245 Z98.890 - TOLAC to be discussed with MFM closer to delivery based on delivery risk factors at the time [id number] Theresa Jason MD [facility] (Adult Med) [address] [place] [address] [phone] 05/14/2023 12:01:26 05/15/2023 12:56:01 Normal 87440956 Z34.90 Nasal congestion 9417162 0 R09.81 Upper resp iratory infection 07517919 J06.9 Flu A/B, COVID negative Human immunodeficiency virus infection 95285901 B20 HIV VL <20 on 4CD 4 725 on 04/16/2023St able on BIKShe will be receiving her care while at [place] or a high risk [facility] [employer]OY[employer] SPECIALIST clinic. OV 04/26/2023H IV VL <20 on BiktarvyLa bs OV 11/19/2022H IV VL 320, CD4 516 on 08/09/2022, blip?, failure?Co ntinue BIKLabs OV 08/09/2022St able on UKC040/<20 (04/13/2022) 464/<20 (10/04/2021 )1035/<20 ()Complian ce and HIV risk counseling were discussedC vahekylie Medinasanazcora Sourav coronado [id number] MD Melina Newton (TRAINMAN) [address] [place] [address] 05/20/2023 08:54:28 06/06/2023 14:31:29 Routine care 101982457 Z34.91 OB plan: 37 y/o ; ROYAL 12/20/23 based on LMPPre-Pre gnancy Weight: 174 lbs, BMI: elevatedPr e-Eclampsi a Risk: pos Continuity Resident: Dr Jackson melania Risk Level: highProble m List:-adva nced maternal age- hx of gestationa l DM in prior - HIV postive status on ART. absolute cd 4 helper 725 INITIAL LABS Date: 05/13/23Blo od Type:Rh Type:Antib salvador Screen:CBC : unremarkab leVDRL/RPR : non-reacti veUrine Culture:HB sAg:HepC:H IV:Rubella :Varicella :CF:SS: consistent with - due to hx of gestationa l DM in last preganancy will have GTT test today- extra labs needed due to high risk status, CMP and Hep A testing ordered today- needs UDS at next visit- F/U in 4 weeks Subchorionic hematoma 60 5816820 O41.8X99 - dating U/S initiated today but unable to get good visual to assess for age of fetus- U/S did show evidence of a subchorion ic hematoma, abdominal sac appeared intact and heart rate is reassuring - anticipato ry guidance as well as return precaution s discussed [id number] MD Nico Newton [address] [place] [address] 05/28/2023 08:52:00 06/21/2023 03:47:22 08490947 Z33.1 The patient is currently managing her alongside HIV. She is appropriat lyndsay taking Biktarvy, an antiretrov iral therapy, and vitamins. It is crucial to ensure adherence to her medication regimen to maintain her health and prevent vertical transmissi on of HIV.Plan:M edication Review:Con tinue Biktarvy as currently prescribed .Continue vitamins.E mphasize the importance of strict adherence to Biktarvy to maintain viral suppressio n and prevent resistance . [id number] MD Melina Newton (TRAINMAN) [address] [place] [phone] 06/03/2023 09:59:26 07/09/2023 13:19:22 Miscarriage in first trimester 94696288 O03.9 TVUS showed no products of conception , beta HCG was high at the hospital, will repeat today and confirm down trending. CBC due to continued vaginal bleeding. Repeat beta hcg in 2 days [id number] MD Melina Seaman (Adult Med) [address] [place] [address] [phone] 09/04/2023 14:31:22 09/05/2023 15:48:27 Otalgia of right ear 9804490107 H92.01 Upper resp iratory infection 99269664 J06.9 [id number] MD Melina Seaman (Adult Med) [address] [place] [address] [phone] 11/06/2023 15:26:37 11/07/2023 14:31:33 Human immunodeficiency virus infection 92574558 B20 HIV VL <20 on 4C D4 492 on 10/18/2023S table on BIK [id number] MD Melina Seaman (Adult Med) [address] [place] [address] [phone] 04/06/2024 11:30:18 04/07/2024 14:22:44 Human immunodeficiency virus infection 79246319 B20 Labs 03/30/2024 HIV <20Follow up with [facility] while .L abs in July,Follow up with me in Aug, 2024 OV 11/06/2023H IV VL <20 on 4C D4 492 on 10/18/2023S table on BIK Normal 5714429 2 Z34.90 [id number] MD Melina Seaman (Adult Med) [address] [place] [address] [phone] 09/04/2024 09:57:14 09/08/2024 09:16:00 Requires vaccination 631696243 Z23 2271987 Human immunodeficiency virus infection 36555968 B20 LabsHIV VL <20, CD4 446Continu e Biktarvy OV 04/06/2024 Labs 03/30/2024 HIV <20Follow up with [facility] while .L abs in July,Follow up with me in Aug, 2024 OV 11/06/2023H IV VL <20 on 10/18/2023 D4 492 on 10/18/2023S table on BIK Past pregn melania history of gestational diabetes mellitus 213250916 Z86.32 [id number] Health Concerns Section Related Observation LastModified by Organization Detai ls LastModified Time None Recorded Concern Status LastModified by Organization Details LastModified Time None Recorded Advance Directives Directive N: Payers Insurance Date Sequence Insurance Name Policy Number Policy Bradford Covered Member ID Bradford Member ID Guarantor Name 06/08/2021 SLIDING FEE SCHEDULE - DISCOUNT Fabricilia Duque 09/17/2024 2 *SELF PAY* Fa bricilia Duque 09/04/2024 [facility] Fabricilia Duque [id number] Fabricilia Duque 09/04/2024 1 *SELF PAY* Fa bricilia Duque 10/25/2020 SLIDING FEE SCHEDULE - DISCOUNT Fabricilia Duque 09/04/2024 2 [place] [id number] Xavi Bella [id number] Fabricilia Duque 09/04/2024 1 [place] [id number] Fabricilia Duque [id number] Fabricilia Duque 06/21/2022 SLIDING FEE SCHEDULE - DISCOUNT Fabricilia Duque 03/10/2015 SLIDING FEE SCHEDULE - DISCOUNT Fabricilia Duque 05/22/2024 SLIDING FEE SCHEDULE - DISCOUNT Fabricilia Duque 10/02/2024 1 [facility] (MEDICAID HMO) [id number] Fabricili Duque [id number] Fabricilia Duque 10/08/2024 SLIDING FEE SCHEDULE - DISCOUNT Fabricilia Duque 05/13/2023 SLIDING FEE SCHEDULE - DISCOUNT Cosme Duque 09/03/2024 1 [facility] ([place]) [id number] Xavi Bella [id number] Cosme Duque Notes Date Note Type Note Provider Name and Address Organization Details Recorded Time 06/03/2023 text/html ROS as noted in the HPI pt is a 37 yo F who presents for f/u on a miscarriage. States that last wk she started having vaginal bleeding and suddenly had loss of her . She states that she was able to hold her baby in her hand. This brought significant distress to her and her significant other. She states that she went to [facility] for further evaluation and was dx w/ miscarriage. She states that she needs blood work done today. TVUS showed miscarriage and no fetus in uterus. Denies SPANGLER, blurred vision, neck pain, fevers, fatigue, night sweats, CP, SOB, NVDC, and rashes. Faby Kinney MD Attn: Accounting[address] [place], [address], [facility] [place] 06/10/2023 14:36:00 09/04/2023 text/html EaracheReported by PatientHPIFor location, patient reportsright. For context, patient reportssick contactbut reportsno recent swimming/water in ear,no exposure to second hand smoke,no head trauma,not grinding teeth, andno recent air travel. For associated symptoms, patient reportsnose/sinus problemsbut reportsno discharge from the ears,no hearing loss,no popping noise in the ears, andno ringing in the ears. For quality, patient reportsaching. For severity, patient reportssame. For duration, patient reportsstarted: (2-3 days ago). For modifying factors, patient reportsnothing makes it worseandnothing gives relief.ROS as noted in the HPI Ms Duque presents with cold like symptoms and pain in her right ear for the last few days. Theresa Jason MD Attn: Accounting[address] [place], [address], [facility] 09/04/2023 15:49:47 11/06/2023 text/html HIVReported by PatientHPIFor baseline labs, patient reportscd4:492,viral load:<20, andrpr:nr.ROS as noted in the HPI [employer] I am here for a regular check up Fully compliant with her BiktarvyShe has no complaints Theresa Jason MD Attn: Accounting[address] [place], [address], [place] [facility] 11/06/2023 16:02:45 04/06/2024 text/html HIVReported by PatientHPIFor baseline labs, patient reportscd4:492andvira l load:<20.ROS as noted in the HPI [employer] used Regular check up Ms Duque returns, I am not sure why she is here today as typically the patients are managed by the ID team at the [facility] during their . Fully compliant with her medications.She feels well and she is in week 23 of her .Sexually active with her and fully compliant with her Biktarvy.Her appointment with the dentist is on hold. Theresa Jason MD Attn: Accounting[address] [place], [address], [place] [facility] 04/06/2024 12:47:00 09/04/2024 text/html HIVReported by PatientHPIFor baseline labs, patient reportscd4:446,viral load:<20, andrpr:nr. For constitutional, patient reportsweight loss:10.ROS as noted in the HPI [employer] was used Yes to be under controlI was and I had gestational Diabetes Ms Duque returns in the interim she delivered a healthy child on June 10, 2024. During her recent , she was on insulin for gestational diabetes and was told to stop this upon completion of her . She has been fully compliant with her Biktarvy and vitamins and she has no complaints Theresa Jason MD Attn: Accounting[address] [place], [address], [place] [facility] 09/04/2024 13:42:06 OBGyn Episode Ob Episode Information Episode Created Date Number of Fetuses Patient Bloodtype Patient rh Status Prepregnancy Weight lbs Domestic Partner Domestic Partner Phone Father Name Road Roller Operator Hot Mix Status 05/13/19 24 1 167 CLOSED Fetus Data First Name Last Name Admitted to NICU Weight (g) Sex Living Outcome Pediatric Complications Fetus ID Race Codes Race Delivery Type [id number] Problems Problem Notes Problem Name Start Date End Date Resolution Snomed Code Not e Miscarriage in first trimester 06/03/2023 81760782 Subchorionic hematoma 05/20/2023 4648803 04 Maternal obesity complicatin g , childbirth and the puerperium, antepartum 05/13/2023 662845229763 Past history of gestational diabetes mellitus 05/13/2023 460389964 Past history of ce sarean section 05/13/2023 253631228 Human immunodeficiency virus complicating childbirth and the puerperium 05/13/2023 533155888 Royal Calculation Initial Royal Date Initial Exam Date Initial Exam Provider Initial Ultrasound Date Last Menstrual Period Date Ultra Sound Weeks Gestation 12/20/2023 05/13/2023 augabi 03/15/2023 0 Eighteen To Twenty Week Royal Update Ultra Sound Date Fundal Height At Umbil Quickening Date Ultra Sound Latest Weeks Gestation Final Royal Confirmed By Final Royal Confirmed Date Final Royal Date Ultra Sound Latest Days Gestation 0 12/20/19 24 0 Pre- Flowsheet Flowsheet Date 05/13/2023 Gonsalves Score Blood Edema Fundus Height Fundus Units Glucose Ketones Leukocytes Nitrite Labor Signs Protein Cervic Dilation Cervic Effacement Cervic Station Type Weight in lbs Pre/Post Dialysis Refused With clothes 167.009788422286 BP Diastolic BP Location Tested BP Systolic BP Type 78 130 sitting Fetus Heart Rate Present Fetus Movement Comments Martin vivar is a 3 8 y/o presenting @ 8.3 dated by LMP, here for inital OB exam. complicated by advanced maternal age, HIV +, obesity . She has no significant concerns today and reports normal antepartum symptoms of . She denies vaginal bleeding, vaginal discharge, loss of fluid, or contractions. [place] T cells level ordered at this time Flowsheet Date 05/14/2023 Gonsalves Score Blood Edema Fundus Height Fundus Units Glucose Ketones Leukocytes Nitrite Labor Signs Protein Cervic Dilation Cervic Effacement Cervic Station Type Weight in lbs Pre/Post Dialysis Refused With clothes 168.439313443843 BP Diastolic BP Location Tested BP Systolic BP Type 82 126 sitting Fetus Heart Rate Present Fetus Movement Comments Flowsheet Date 05/20/2023 Gonsalves Score Blood Edema Fundus Height Fundus Units Glucose Ketones Leukocytes Nitrite Labor Signs Protein Cervic Dilation Cervic Effacement Cervic Station neg trace none negative neg Type Weight in lbs Pre/Post Dialysis Refused With clothes 171.421328669434 BP Diastolic BP Location Tested BP Systolic BP Type 70 118 sitting Fetus Heart Rate Present Fetus Movement Comments Martin vivar is a 3 8 y/o presenting @ 9.3 dated by LMP, here for routine OB exam. complicated by advanced maternal age, HIV +, obesity . She has no significant concerns today and reports normal antepartum symptoms of . She denies vaginal bleeding, vaginal discharge, loss of fluid, or contractions. She has not had a visit to ED or Triage since last appointment. Received GTT and nuswab at this time, will send for dating U/S due to poor visualization. Flowsheet Date 05/28/2023 Gonsalves Score Blood Edema Fundus Height Fundus Units Glucose Ketones Leukocytes Nitrite Labor Signs Protein Cervic Dilation Cervic Effacement Cervic Station Type Weight in lbs Pre/Post Dialysis Refused BP Diastolic BP Location Tested BP Systolic BP Type Fetus Heart Rate Present Fetus Movement Comments Flowsheet Date 06/03/2023 Gonsalves Score Blood Edema Fundus Height Fundus Units Glucose Ketones Leukocytes Nitrite Labor Signs Protein Cervic Dilation Cervic Effacement Cervic Station Type Weight in lbs Pre/Post Dialysis Refused BP Diastolic BP Location Tested BP Systolic BP Type Fetus Heart Rate Present Fetus Movement Comments Menstrual History Last Menstrual Date Menses Monthly On Bcp Conception Prior Menses Frequency Hcg Plus Date Menarche Onset Age 1203/15/2023 false Genetic Screening And Infection History Question Response Note Patient's Age Will Be 35 Yea rs Or Older At Estimated Date of Delivery true Thalassemia (Taiwanese, Yi, Mediterranean, Or Background): MCV < 80 false Neural Tube Defect (Meningomyelocele, Spina Bifi da, Or Anencephaly) false Congenital Heart Defect false Down Syndrome false Antoni-Sachs (eg, Christian, Cajun, Polish-[place]) f alse [place] Disease false Sickle Cell Disease Or Trait () false Hemophilia Or Other Blood Disorders false Muscular Dystrophy false Cystic Fibrosis false Jenniffer's Chorea false Mental Retardation/Autism false If Yes, Was Person Tested For Fragile X? false Other Inherited Genetic Or Chromosomal Disorder false Maternal Metabolic Disorder (eg, Type 1 Diabetes , PKU) false Patient Or Baby's Father Had A Child With Defects Not Listed Above false Recurrent Loss, Or A Stillbirth false Medications (including Suppl ements, Vitamins, Herbs, OTC Drugs), Illicit/Recreational Drugs, Alcohol true If Yes, Agent(s) And Strength/Dosage true Biktarvy Any Other Genetic History false Live With Someone With TB Or Exposed To TB false Patient Or Partner Has History Of Genital Herpes false Rash Or Viral Illness Since Last Menstrual Perio d false History Of STD, Gonorrhea, Chlamydia, HPV, Syphi lis false Other Infection History false History of HIV true History of Hepatitis false Prior GBS-infected child false Delivery Information Delivery Date Delivery Type Labor Anesthesia Weeks Gestation Incision Type Labor Labor Length Hrs Delivered By Post Complications Tubal Sterilization Discharge Date Comments Discharge Information Feeding Method Contraceptive Method Maternal HG B and HCT Levels Ob Episode Information Episode Created Date Number of Fetuses Patient Bloodtype Patient rh Status Prepregnancy Weight lbs Domestic Partner Domestic Partner Phone Father Name Road Roller Operator Hot Mix Status 05/13/19 24 1 CLOSED Fetus Data First Name Last Name Admitted to NICU Weight (g) Sex Living Outcome Pediatric Complications Fetus ID Race Codes Race Delivery Type , Spontane ous [id number] Royal Calculation Initial Royal Date Initial Exam Date Initial Exam Provider Initial Ultrasound Date Last Menstrual Period Date Ultra Sound Weeks Gestation 0 Eighteen To Twenty Week Royal Update Ultra Sound Date Fundal Height At Umbil Quickening Date Ultra Sound Latest Weeks Gestation Final Royal Confirmed By Final Royal Confirmed Date Final Royal Date Ultra Sound Latest Days Gestation 0 0 Menstrual History Last Menstrual Date Menses Monthly On Bcp Conception Prior Menses Frequency Hcg Plus Date Menarche Onset Age Delivery Information Delivery Date Delivery Type Labor Anesthesia Weeks Gestation Incision Type Labor Labor Length Hrs Delivered By Post Complications Tubal Sterilization Discharge Date Comments 3 8 Discharge Information Feeding Method Contraceptive Method Maternal HG B and HCT Levels Ob Episode Information Episode Created Date Number of Fetuses Patient Bloodtype Patient rh Status Prepregnancy Weight lbs Domestic Partner Domestic Partner Phone Father Name Road Roller Operator Hot Mix Status 07/20/19 21 1 CLOSED Fetus Data First Name Last Name Admitted to NICU Weight (g) Sex Living Outcome Pediatric Complications Fetus ID Race Codes Race Delivery Type 3798.83 3 M Full Term [id number] Standard Vaginal Delivery Royal Calculation Initial Royal Date Initial Exam Date Initial Exam Provider Initial Ultrasound Date Last Menstrual Period Date Ultra Sound Weeks Gestation 0 Eighteen To Twenty Week Royal Update Ultra Sound Date Fundal Height At Umbil Quickening Date Ultra Sound Latest Weeks Gestation Final Royal Confirmed By Final Royal Confirmed Date Final Royal Date Ultra Sound Latest Days Gestation 0 0 Menstrual History Last Menstrual Date Menses Monthly On Bcp Conception Prior Menses Frequency Hcg Plus Date Menarche Onset Age Delivery Information Delivery Date Delivery Type Labor Anesthesia Weeks Gestation Incision Type Labor Labor Length Hrs Delivered By Post Complications Tubal Sterilization Discharge Date Comments 1 None 40 4 Discharge Information Feeding Method Contraceptive Method Maternal HG B and HCT Levels Ob Episode Information Episode Created Date Number of Fetuses Patient Bloodtype Patient rh Status Prepregnancy Weight lbs Domestic Partner Domestic Partner Phone Father Name Road Roller Operator Hot Mix Status 07/20/19 21 1 CLOSED Fetus Data First Name Last Name Admitted to NICU Weight (g) Sex Living Outcome Pediatric Complications Fetus ID Race Codes Race Delivery Type 4025.62 9 M Full Term [id number] Standard Vaginal Delivery Royal Calculation Initial Royal Date Initial Exam Date Initial Exam Provider Initial Ultrasound Date Last Menstrual Period Date Ultra Sound Weeks Gestation 0 Eighteen To Twenty Week Royal Update Ultra Sound Date Fundal Height At Umbil Quickening Date Ultra Sound Latest Weeks Gestation Final Royal Confirmed By Final Royal Confirmed Date Final Royal Date Ultra Sound Latest Days Gestation 0 0 Menstrual History Last Menstrual Date Menses Monthly On Bcp Conception Prior Menses Frequency Hcg Plus Date Menarche Onset Age Delivery Information Delivery Date Delivery Type Labor Anesthesia Weeks Gestation Incision Type Labor Labor Length Hrs Delivered By Post Complications Tubal Sterilization Discharge Date Comments 0 None 41 24 [address] [place] baby boy born [place] Discharge Information Feeding Method Contraceptive Method Maternal HG B and HCT Levels Ob Episode Information Episode Created Date Number of Fetuses Patient Bloodtype Patient rh Status Prepregnancy Weight lbs Domestic Partner Domestic Partner Phone Father Name Road Roller Operator Hot Mix Status 07/20/19 21 1 CLOSED Fetus Data First Name Last Name Admitted to NICU Weight (g) Sex Living Outcome Pediatric Complications Fetus ID Race Codes Race Delivery Type 4592.61 9 M Full Term [id number] Primary Royal Calculation Initial Royal Date Initial Exam Date Initial Exam Provider Initial Ultrasound Date Last Menstrual Period Date Ultra Sound Weeks Gestation 0 Eighteen To Twenty Week Royal Update Ultra Sound Date Fundal Height At Umbil Quickening Date Ultra Sound Latest Weeks Gestation Final Royal Confirmed By Final Royal Confirmed Date Final Royal Date Ultra Sound Latest Days Gestation 0 0 Menstrual History Last Menstrual Date Menses Monthly On Bcp Conception Prior Menses Frequency Hcg Plus Date Menarche Onset Age Delivery Information Delivery Date Delivery Type Labor Anesthesia Weeks Gestation Incision Type Labor Labor Length Hrs Delivered By Post Complications Tubal Sterilization Discharge Date Comments 8 [facility] 38 baby boy born @ [place], [place], -a Discharge Information Feeding Method Contraceptive Method Maternal HG B and HCT Levels
--- OUTSIDE RECORDS SUMMARY | 2025-01-08 20:07 | XMS_ITS | Encounter Summary ---
Author Organization [facility] Address [address] [place] [address] Phone Care Team Providers Care Member Certification Manager Name Role Phone No, Physician Primary Care Provider [phone] Kelle Santos RN Unavailable Unavailable Michelle Arboleda RN Unavailable Unava ilable Charley Mendoza Unavailable Unavailabl e Kelle Santos RN Unavailable Unavailable Encounter Details Date Type Department Care Team (Latest Contact Info) Description 04/11/2017 Orders Only [facility] CONVERSION Scanning, Provider Social History Tobacco Use Types Packs/Day Years Used Date Smoking Tobacco: Never Comments Unknown Sex and Gender Information Value Date Recorded Sex Assigned at Not on file Legal Sex Female 9:31 PM SERVICES MANAGER Gender Identity Female 10/11/2017 12:45 PM CDT Sexual Orientation Straight 08/21/2018 2: 27 PM CDT documented as of this encounter Plan of Treatment Not on file documented as of this encounter Procedures Procedure Name Priority Date/Time Associated Diagnosis Comments OBSTETRIC/GYNECOLOGY ULTRASONOGRAPHY REPORT 05/02/2017 10:11 AM SERVICES MANAGER OBSTETRIC/GYNECOLOGY ULTRASONOGRAPHY REPORT 04/11/2017 9:41 AM SERVICES MANAGER documented in this encounter Results * OBSTETRIC/GYNECOLOGY ULTRASONOGRAPHY REPORT (05/02/2017 10:11 AM SERVICES MANAGER) Anatomical Region Laterality Modality Ultrasound us Provider Scanning IMG OB US PROCEDURES Final Res ult * OBSTETRIC/GYNECOLOGY ULTRASONOGRAPHY REPORT (04/11/2017 9:41 AM SERVICES MANAGER) Anatomical Region Laterality Modality Ultrasound us Provider Scanning IMG OB US PROCEDURES Final Res ult documented in this encounter Visit Diagnoses Not on filedocumented in this encounter Additional Health Concerns 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 03/27/201411/23 5:00 AM CDT documented as of this encounter Care Teams Member Certification Manager Relationship Specialty Start Date End Date No, Physician PCP - General 03/06/17 Kelle Santos, RN Registered Nurse 06/19/22 Michelle Arboleda, RN Registered Nurse Pediatric Infectious Disease 01/06/24 04/29/24 Charley Mendoza, BS Archie Mathew Hot Bread Baker Infectious Diseases 01/22/24 Kelle Santos, RN Registered Nurse Pediatric Infectious Disease 04/30/24 Archie [facility] Hot Bread Baker Infectious Diseases 10/04/17 04/14/20 Camila Yuen Hot Bread Baker 04/15/20 Joaquin Bishop Hot Bread Baker Infectious Diseases 07/04/20 documented as of this encounter
--- OUTSIDE RECORDS SUMMARY | 2025-01-08 20:07 | XMS_ITS | Encounter Summary ---
Author Organization [facility] Address [address] [place] [address] Phone Care Team Providers Care Cloth Folder Machine Name Role Phone No, Physician Primary Care Provider [phone] Kelle Santos RN Unavailable Unavailable Charley Mendoza Unavailable Unavailkaren e Kelle Santos RN Unavailable Unavailable Encounter Details Date Type Department Care Team (Late st Contact Info) Description 12/24/2024 Telephone [facility] Medicine Infectious Diseases [address] [place] [address] [address] [place] [address] Jenny Nevarez RMA Social History Tobacco Use Types Packs/Day Years Used Date Smoking Tobacco: Former Cigarettes Smokeless Tobacco: Never Comments:4 PER DAY Social Connection and Isolation Panel Answer Date Recorded In a typical week, how many times do you talk on the phone with family, friends, or neighbors? More than three times a week 06/03/2024 How often do you get togethe r with friends or relatives? More than three times a week 06/03/2024 How often do you attend chur ch or lutheran services? Never 06/03/2024 Do you belong to any clubs o r organizations such as alevism groups, unions, fraternal or athletic groups, or school groups? No 06/03/2024 How often do you attend meet ings of the clubs or organizations you belong to? Never 06/03/2024 Are you , , di vorced, , never , or living with a partner? 06/03/2024 Overall Financial Resource Strain (CARDIA) Answe r Date Recorded How hard is it for you to pa y for the very basics like food, housing, medical care, and heating? Not very hard 06/03/2024 PHQ-2 Answer Date Recorded PHQ-2 Total Score (If total score is 3 or more points, staff should administer the PHQ-9) 0 11/12/2019 Hunger Vital Sign Answer Date Recorded Within the past 12 months, y ou worried that your food would run out before you got the money to buy more. Never true 06/03/19 25 Within the past 12 months, t he food you bought just didn't last and you didn't have money to get more. Never true 06/03/2024 PRAPARE - Transportation Answer Date Re corded In the past 12 months, has l ack of transportation kept you from medical appointments or from getting medications? No 05/10 In the past 12 months, has l ack of transportation kept you from meetings, work, or from getting things needed for daily living? No 06/03/2024 [place] Depression Scale Answer Date Recorded [place] Depression Scale Total 3 07/22/2024 The thought of harming myself has occurred to me . Never 07/22/2024 Housing Stability Vital Sign Answer Sergo e Recorded In the last 12 months, was t here a time when you were not able to pay the mortgage or rent on time? No 06/03/2024 In the past 12 months, how m any times have you moved where you were living? 1 06/03/2024 At any time in the past 12 m [facility], were you homeless or living in a usp (including now)? No 06/03/2024 Personal Safety Answer Date Recorded Have you ever been in or are you currently in a harmful physical or emotional relationship or is someone making you feel afraid or unsafe? 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 * Telephone Encounter - Jenny Nevarez RMA - 12/24/2024 2:42 PM CDT Gabriel is requesting re a vitamins refill. Please call [phone] documented in this encounter Plan of Treatment Not on file documented as of this encounter Visit Diagnoses Not on filedocumented in this encounter Care Teams Cloth Folder Machine Relationship Specialty Start Date End Date No, Physician PCP - General 03/06/17 Kelle Santos, RN Registered Nurse 06/19/22 Charley Mendoza, BS Archie Mathew Alum Operator Infectious Diseases 01/22/24 Kelle Santos, RN Registered Nurse Pediatric Infectious Disease 04/30/24 Camila Yuen Alum Operator 04/15/20 Joaquin Bishop Alum Operator Infectious Diseases 07/04/20 documented as of this encounter
--- OUTSIDE RECORDS SUMMARY | 2025-01-08 20:07 | XMS_ITS | Clinical Summary ---
Author Organization [facility] Address [address] [place] [address] Care Team Providers Care Heavy Equipment Operator Apprentice Name Role Phone Unavailable Primary Care Provider Unavailabl e Source Comments [facility],non-owned Affiliates and Associated Physician Practices is amultiple site organization consisting of ambulatory clinics and hospital sitesin [place], [place], [place] and [place]. This disclosure is being madepursuant to the Care Everywhere program and may not contain all information available regarding this patient. Last updated 17.[facility] Allergies No known active allergies Medications * Be aware that medications may not be up to date on this document. Alwaysverify current medications with the patient. 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 Gender Identity Not on file Sexual Orientation Not on file Last Filed Vital Signs Vital Sign Reading Time Taken Comments Blood Pressure - - Pulse - - Temperature - - Respiratory Rate - - Oxygen Saturation - - Inhaled Oxygen Concentration - - Weight - - Height 134.6 cm (4' 5) 06/05/2023 1:16 PM UNIVERSITY SERVICES PROGRAM ASSOCIATE Body Mass Index - - Plan of Treatment Health Maintenance Due Date Last Done Comments LIPID TESTING 1984 MAMMOGRAM 1984 MENINGOCOCCAL GROUPS A/C/Y/W VACCINE (1 - Risk 2-dose series) 1986 COVID-19 VACCINE (#1) 1989 HIV SCREENING 11/27/1999 HEPATITIS C SCREENING 11/22/2002 DTAP/TDAP/TD VACCINES (1 - Tdap) 11/27/2003 HEPATITIS B VACCINE (1 of 3 - 19+ 3-dose series) 11/27/2003 PNEUMOCOCCAL VACCINE (1 of 2 - PCV) 11/27/2003 ZOSTER VACCINE (1 of 2) 11/27/2003 PAP SMEAR 2005 HPV VACCINE (1 - Risk 3-dose SCDM series) 11/27/2011 DEPRESSION SCREENING 04/08/2024 INFLUENZA VACCINE (#1) 2024 HIB VACCINE Aged Out No longer eligi ble based on patient's age to complete this topic MENINGOCOCCAL (Group B) VACC INE SHARED DECISION-MAKING Aged Out No longer eligibl e based on patient's age to complete this topic Insurance [facility] Jennifer Estrella. [address]
--- OUTSIDE RECORDS SUMMARY | 2025-01-08 20:07 | XMS_ITS | Clinical Summary ---
Author Organization [facility] Address [address] [place] [address] Care Team Providers Care Piece Dyeing Machine Tender Name Role Phone No, Physician Primary Care Provider Kelle Santos RN Unavailable Unavailable Charley Mendoza Unavailable Unavailabl e Kelle Santos RN Unavailable Unavailable Allergies No known active allergies Medications Biktarvy 50-200-25 mg tabletIndications:Hu man immunodeficiency virus (HIV) infection (HCC) TAKE ONE TABLET BY MOUTH DAILY 30 tablet 3 1 Active ergocalciferol, vitamin D2, 50 mcg (2,000 unit) tabletIndications:Vi tamin D Deficiency Take 2,000 Int'l Units/day by mouth daily 1 tablet 11 4 Active 28 mg iron- 800 mcg tablet Take 1 tablet by mouth daily 4 Active blood glucose diagnostic strip Check glucose fasting and one hour after each meal 120 each 3 5 Active lancets 33 gauge misc CHECK GLUCOSE FASTING AND ONE HOUR AFTER EACH MEAL 120 each 3 5 Active OneTouch Ultra2 Meter misc USE TO TEST BLOOD SUGARS 5 Active metFORMIN XR (GLUCOPHAGE XR) 500 mg 24 hr tablet Take 1 tablet (500 mg total) by mouth 2 (two) times a day 60 tablet 3 5 Active NIFEdipine (PROCARDIA XL/ADALAT CC) 60 mg 24 hr tablet Take 1 tablet (60 mg total) by mouth daily 30 tablet 11 5 06/17/19 26 Active oxyCODONE (ROXICODONE) 5 mg immediate release tabletIndications:Pa in Take 1 tablet (5 mg total) by mouth 4 (four) times a day as needed for pain 10 tablet 5 Active polyethylene glycol (MIRALAX) 17 gram/dose bulk powderIndications:co nstipation Take 17 g by mouth daily 289 g 5 Active labetaloL (NORMODYNE,TRANDATE) 200 mg tablet Take 2 tablets (400 mg total) by mouth 2 (two) times a day 120 tablet 1 5 07/25/19 26 Active Active Problems Problem Noted Date Diagnosed Date Delayed hemorrhage 06/13/2024 care following delivery 08/2024 Overview (06/16/2024): # ID: Afebrile. No signs/symptoms of infection. Received intra-op ancef and flagyl for hysterectomy. #HIV: Follows with [facility] since 2013. Negative viral load on admission. Continue Biktaarvy. # RNI: For MMR . #HSV: On Valtrex suppression during , history of oral lesions only. OK to discontinue # Heme: # hemorrhage: Preop Hgb 11.3. EBL 600 mL. Hypotensive during postoperative recovery, with BSUS with thickened EMS of 8cm c/f intrauterine blood products vs. rPOC. Hypotension requiring pressor support. Given e/o hemorrhagic shock, decision was made to proceed to OR for suction D&C and patient was given 1u pRBC prior to transfer to OR. During D&C progressive instability, converted to exploratory laparotomy with large boggy uterus with e/o bleeding into myometrium. [facility] On[facility] intra-op consult, proceeded with hysterectomy. EBL 3L. Received 5 units PRBC, 2 units PLT, 2 FFP, 4L crystalloid, and 250 ml colloid . Patient requiring significant pressor support intra-op, transferred to 7800 ICU. Weaned off pressor support. Hb trend: 11.3>8.7>12.4>13.1>11>9>8.4, Plt trend: 65>59>94>111>59>93>153. Product totals: 5 units PRBC, 2 units PLT, 2 FFP # CV/Pulm: S/p extubation, now satting well on room air. #Pre-eclampsia with severe features, thrombocytopenia: Initially started on magnesium prior to delivery with 6 gram bolus followed by 2/hr for approximately 6 hours, then magnesium sulfate held due to hypotension and sedation. Antepartum regimen: labetalol 600 mg TID, Nifedipine 120 mg XL. Antihypertensives initially held given hypotension related to hemorrhage. POD1 developed high mild range & nonsustained severe range BP; thus restarted PO labetalol 300mg TID. Increased to 600 TID POD#4 for persistent MR/ non sustained SR BP & restarted nifedipine 60 mg XL daily 06/15. Will need home BP cuff on dc as Cymro speaking and not eligible for [facility]. # Endocrine: #GDMA2: On metformin prior to admission; otherwise well controlled with SSI. Discontinued sliding scale insulin given overall good blood sugar control since leaving ICU. Will need glucose tolerance test. # GI/: Tolerating PO. Voiding spontaneously. # Pain: Controlled with above regimen. # MOC: s/p hyst # MOF: Desires to breastfeed pending NICU/ICU course . Urine drug screen not indicated. Patient informed of results: N/A. # Post DVT prophylaxis: Will be for Lovenox prophylaxis daily when stable # Disposition: Follow up task sent to [facility] scheduling pool for appointments in 1 and 5 weeks. She has been given a BP cuff for home. Anticipate discharge today. R4 (Chief) [phone] [facility] (Fellow) [phone] Preeclampsia, third trimester 05/27/2024 High risk medication use 08/21/2018 Uses Cymro as primary spoken language 11/06/19 15 Human immunodeficiency virus (HIV) infection 08/2014 Overview (08/21/2018): Diagnosed in 03/2014 Genotype: wildtype virus in 2013 HLA B5701 (-) G6PD wnl CMV IgG (+) Toxo IgG (-) HAV AB (-) HBV AB (+) HCV AB (-) Well controlled HIV with recent change to Biktarvy from Truvada plus Tivicay in 04/2018. Most recent labs from April 2018 noted a CD4 of 567 (23%) with a viral load of less than 20 copies. Reports 100% adherence and adverse effects. Assessment & Plan (05/13/2019 2:29 PM DYE REEL OPERATOR HELPER): - Continue current regimen of Biktarvy - Discussed the importance of medication adherence in order to avoid drug resistance - Advised patient to take medication at the same time everyday as prescribed. - discussed safe sex practices. Assessment & Plan (08/21/2018 2:33 PM CDT): 1. Continue Biktarvy 2. Advised 100% adherence 3. Checked labs to assess for effectiveness and toxicity. Annual labs checked 4. Will monitor Assessment & Plan (04/17/2018 10:39 AM DYE REEL OPERATOR HELPER): - Due to nausea with Tivicay and Truvada, we will consolidate these to Biktarvy - She currently has an IUD - says that she is not currently interested in having more children. Counseled that she should let the HIV clinic know if she plans on conceiving again so her medications can be adjusted. - Check CD4, viral load, CBC, CMP - Flu shot today Septic shock(785.52) 04/12/2014 Resolved Problems Problem Noted Date Diagnosed Date Resolved Date Gestational diabetes mellitu s (GDM) in third trimester 05/27/2024 07/22/2024 Overview (05/27/2024): Diagnosed based on 1 week of abnormal BS. S/p counseling 05/27/2024 Current regimen: Metformin ER 500mg BID- started 05/27/2024 Plan: Weekly review of BS [] Diabetes education [] Serial growths [] 2x/weekly testing starting at 32 weeks Low-lying placenta 03/17/2024 Overview (05/13/2024): Noted on anatomy 03/17/2024 Counseled on pelvic rest and hospital/bleeding precautions reviewed Resolved 05/13/2024 History of gestational diabetes 12/30/2023 05/27/2024 Overview (12/30/2023): GDMA1 in G3 , ultimately resulted in CS due to LGA fetus weighing 10lb 1oz. HgbA1c collected today. Consider early gtt. History of hemorr zoila, currently 12/30/2023 07/22/2024 Overview (12/30/2023): H/o PPH due to retained products of conception requiring immediate D&C. Patient reports losing half of her blood volume, received multiple blood transfusion. Denies difficulty with placental delivery in subsequent pregnancies. HIV affecting , antepartum 12/27/2023 07/22/2024 Overview (05/14/2024): History: Diagnosed: 03/2014 during , genotype: wild type Contracted from: [place], partner also HIV+ Viral Load trend: Cannot view all labs, requested CD4 trend: >250 since 2016, IOB AIDS defining illnesses: H/o disseminated histoplasmosis at diagnosis, s/p treatment Prior ART regimens: Truvada+ Tivicay -> Biktravy Rx managed by: Dr Rosenbaum, [facility], last seen 11/02/2023 Three sons, all negative for HIV, diagnosed with HIV prior to previous Previously counseled Current regimen: Biktarvy Plan: [x] Establish with [facility] for care- appt 01/30 [x] Continue ART daily throughout and labor [x] Baseline labs: CBC, CMP, UPC, [id number], G6PD, CMV IgG/IgM, Toxo IgG/IgM, HSV 1/2 IgG, Tspot, consider HIV genotyping if known resistance [] Monthly VL to trend until undetectable, repeat every 3 months if undetectable- undetectable 05/01 [] Repeat CD4 every 3 months- 631 on 01/30, 337 on 05/13 [] Immunizations: influenza, hepatitis B, pneumonia, tdap (05/13/2024) [] discussion (.HIVBREASTFEEDINGCOUNSELING) [] Serial growth ultrasounds every 4 weeks after 24 weeks Inpatient management [] Alert peds ID team and HIV care management team > alert peds at time of delivery [] OK for if VL at 36 weeks <1000, recommend C/S if >1000 [] Labor: Avoid FSE and OVD, AZT in labor if VL >50 (at least 3 hours prior to delivery, 2mg/kg over 1st hour, continuous 1 mg/kg/hr until cord clamping), continue oral ART, avoid methergine if on protease inhibitors [] Consult pediatric ID on admission to labor re: ART following deliver, postnatally will need ~6 weeks of ART Assessment & Plan (01/28/2024 3:29 PM CDT): Encouraged compliance with meds. Pt denies issues. Encouraged she keep her scheduled ID appt on 01/30. AMA (advanced maternal age) multigravida 35+, first trimester 12/27/2023 07/22/2024 Overview (02/25/2024): Previously counseled Plan: [x] s/p low risk nipt [x] ASA 81 mg daily - discussed and rx 01/28/2024 Supervision of high-risk pre gnancy, first trimester 12/27/2023 07/22/2024 Overview (05/27/2024): [x] Full M Care; [x] Blue Team Referring Provider: Faby Hilario [phone] [] or Medicare Insurance [x] Dating Criteria: LMP 10/28/23 with CHUCKIE 08/03/24 [x] Labs: Rh [O+], Ab [neg], Rubella [non-immune], HIV [reactive, HIV-1 reactive], HepBSAg [NR], RPR [NR], Hep C [NR ], Varicella [immune ], GC/CT [negative/negative ] Trich [negative HSV 1 reactive, HSV-2 NR] [x] Aneuploidy: NIPT low risk [x] Carrier Screening: CF negative [x] CBC/Hgb: 12.6/36.0/292K [x] Early 1hr GTT (if indicated) : A1C: 5.9 [x] UCx: 01/28/2024 GBS positive [x] Pap: 01/28/2024 : Negative, pt aware [x] Flu Shot (Dec-Mar): 01/28/2024 LE [] COVID- reviewed recommendation for booster, pt will schedule [x] LD ASA (if indicated): rx 01/28/2024 [] EPDS [ ]; PNBHS referral (if indicated) 2nd Tri Labs: [x] Anatomy ultrasound [x] CBC/1hr gtt at 24-28wks: 11.9/34.7/247, 1hr GTT: 225, 1 week accu checks abnormal [x] Tdap (27-36wks): 04/13/2024 LE 3rd Tri Labs: [] CBC/HIV/RPR/T&S: [x] GBS: In urine [] testinx/weekly nsts at 32w for gDMA2 Counseling [] MOD: [x] Place of delivery: [facility] [] Epidural: [] Blood Products [] Consents signed: [] Stop ASA [] MOC: [] Method of feeding: [] Production Control Supervisor: [] PP Depression Discussed: 05/13/2024 EFW 13%, long bones short- counseled by Dr. Quach in US and plan for repeat US in 3 weeks History of section complicating 12/27/2023 07/22/2024 Overview (12/30/2023): G3 due to concern for size, 10lb 1oz. [] Discuss delivery preferences at viability HIV positive 09/10/2017 10/07/2017 Encounter for IUD insertion 08/20/2017 10/07/2017 Encounters Date Type Department Care Team Description 12/24/2024 Telephone [facility] Medicine Infectious Diseases [address] [place] [id number] Jenny Nevarez RMA from Last 3 Months Immunizations Immunization Administration Dates Next Due Hep B Vaccine 07/13/2016,12/02/2015,06/22/2015 Influenza, Quadrivalent, Wanda l Culture-based MDCK, Antibiotic Free, Intramuscular 04/17/2018 Influenza, Quadrivalent, Wanda l Culture-based MDCK, Preservative Free, Antibiotic Free, Intramuscular 05/20/2020 Influenza, Quadrivalent, Spl it, Intramuscular 03/06/2017 Influenza, Trivalent, Cell Culture-based MDCK, Preservative Free, Antibiotic Free, Intramuscular 01/28/2024 Influenza, Trivalent, Preser vative Free, Intramuscular 06/22/2015 Influenza, Unspecified 03/08/2017 MMR 06/16/2024(Deferred: Other - see other order at 1139),06/16/2024 Pneumococcal Conjugate PCV 13 06/22/2015 Tdap 05/13/2024,03/06/2017 Surgical History Surgery Date Site/Laterality Comments SECTION 04/08/2017 - 04/07/2018 Medical History Medical History Date Comments Gestational diabetes STI (sexually transmitted infection) chlamydia 2009 HIV (human immunodeficiency virus infection) (HC C) Family History Medical History Relation Name Comments Diabetes Father Family history of diabetes mellitus - (Added by TW Conv) Relation Name Status Comments Father Social History Tobacco Use Types Packs/Day Years Used Date Smoking Tobacco: Former Cigarettes Smokeless Tobacco: Never Tobacco Cessation:Counseling Given: Not Answered Comments:4 PER DAY Social Connection and Isolation Panel Answer Date Recorded In a typical week, how many times do you talk on the phone with family, friends, or neighbors? More than three times a week 06/03/2024 How often do you get togethe r with friends or relatives? More than three times a week 06/03/2024 How often do you attend chur or oriental orthodox services? Never 06/03/2024 Do you belong to any clubs o r organizations such as mormon groups, unions, fraternal or athletic groups, or [...] things needed for daily living? No 06/03/2024 [place] Depression Scale Answer Date Recorded [place] Depression Scale Total 3 07/22/2024 The thought [...] any time in the past 12 m [facility], were you homeless or living in a fci (including now)? No 06/03/2024 Personal Safety Answer Date Recorded Have you ever been in or are you currently in a harmful physical or emotional relationship or is someone making you feel afraid or unsafe? Denies 05/27/2024 Comments No Sex and Gender Information Value Date Recorded Sex Assigned at Not on file Legal Sex Female 9:31 PM DYE REEL OPERATOR HELPER Gender Identity Female 10/11/2017 12:45 PM CDT Sexual Orientation Straight 08/21/2018 2: 27 PM CDT Obstetrics History Para Term AB IAB SAB Ectopic Multiple Livin g Live Births 4 4 3 1 0 0 0 0 0 4 4 Date Outcome GA Total Labor Labor/2nd/3rd Weight Sex Type Anes PTL Melvina A1 A5 Name Clin 2009 Term Vag-S pont 2010 Term Vag-S pont 2017 Term 39w 1d 4.57 kg (10 lb 1.2 oz) M CS-LT ranv Spinal Livin g 2024 32w 2d 1.77 kg (3 lb 14.4 oz) F C-Sec tion Genera l N Livin g 4 8 Keesha colby, Bridget Fay MD Complications:None Delivery Location:[facility] Main C ampus ([facility] L AND D PROCEDURE) Last Filed Vital Signs Vital Sign Reading Time Taken Comments Blood Pressure 113/73 07/24/2024 2:15 PM CDT Pulse 91 07/24/2024 2:15 PM CDT Temperature 36.9 C (98.4 F) 07/24/2024 2:15 PM CDT Respiratory Rate 16 06/16/2024 11:47 AM CDT Oxygen Saturation 96% 07/24/2024 2:15 PM CDT Inhaled Oxygen Concentration - - Weight 76.7 kg (169 lb) 07/24/2024 2:15 PM CDT Height 152 cm (4' 11.84) 07/24/2024 2:15 PM CDT Body Mass Index 33.18 07/24/2024 2:15 PM CDT Plan of Treatment Health Maintenance Due Date Last Done Comments Breast Cancer Screening-Mammogram 1984 HLA B 5701 Typing 1984 Regular Well Visit/Exam 18-11/26/2002 Hepatitis A Vaccines (1 of 2 - Risk 2-dose series) 11/27/2003 Zoster Vaccine (1 of 2) 11/27/2003 HPV Vaccines (1 - Risk 3-dos e SCDM series) 11/27/2011 Hepatitis A Screening 08/22/2019 08/21/2018 Proteinuria screening Urinalysis (UA) 08/22/2019 08/21/2018, 08/21/2018, 09/10/2017, Additional history exists Varicella Vaccines (1 of 2 - 13+ 2-dose series) 07/14/2024 Influenza Vaccine (#1) 2024 , 04/26/2023, 03/08/2021, Additional history exists Hepatitis C Screening 12/29/2024 12/30/2023 , 05/20/2020, 08/21/2018, Additional history exists T Spot (quantiferon gold) 12/29/20242023, 05/20/2020, 08/21/2018 Lipid Panel 01/30/2025 01/31/2024, 05/09, 08/21/2018, Additional history exists HIV+ Chlamydia and Gonorrhea Screening (Rectal) 01/31/2025 02/01/2024 HIV+ Chlamydia and Gonorrhea Screening (Throat) 01/31/2025 02/01/2024 Hemoglobin A1C 05/01/2025 05/01/2024, 01/07, 12/30/2023, Additional history exists HIV + Chlamydia and Gonorrhe a Screening (Urine) 05/02/2025 05/02/2024 RPR Screening 05/27/2025 05/27/2024, 04/09, 12/30/2023, Additional history exists Depression Screening 07/22/2025 07/22/2024, 11/12/19 20 Cervical Cancer Screening-Pa p and HPV 01/27/2027 01/28/2024, 01/28/2024 DTaP/Tdap/Td Vaccine (4 - Td or Tdap) 05/13/2034 05/13/2024, 03/06/2017, 08/04/2014 Pneumococcal vaccine <65 (4 of 4 - PCV20 or PCV21) 2034 03/08/2021, 06/22/2015, 08/26/2014 G6PD Completed 12/30/2023, 11/12/2014 Hepatitis B Vaccines Completed 09/04/2024, 07/13/2016, 12/02/2015, Additional history exists Procedures Procedure Name Priority Date/Time Associated Diagnosis Comments RPR Routine 05/27/2024 1:29 PM DYE REEL OPERATOR HELPER HEMOGLOBIN A1C Routine 05/01/2024 3:10 PM DYE REEL OPERATOR HELPER Pre-diabetes LIPID PANEL Routine 01/31/2024 2:25 PM CDT HIV affecting , antepartum HIGH RISK HPV DNA DETECTION WITH GENOTYPING Routine 01/28/2024 4:04 PM CDT Supervision of high-risk , first trimester HEPATITIS C ANTIBODY Routine 12/30/2023 10:45 AM CDT Unspecified high-risk T-SPOT.TB Routine 12/30/2023 10:45 AM CDT Unspecified high-risk G6PD QUALITATIVE WITH REFLEX TO QUANTITATIVE Routine 12/30/2023 10:45 AM CDT Unspecified high-risk URINALYSIS AND REFLEX TO MICROSCOPIC AND CULTURE Routine 08/21/2018 11:09 AM CDT Symptomatic HIV infection (HCC) HEPATITIS A ANTIBODY,IGG Routine 08/21/2018 11:09 AM CDT Symptomatic HIV infection (HCC) from Last 3 Months or Most Recently Relevant to Health Maintenance Results * RPR Blood (05/27/2024 1:29 PM DYE REEL OPERATOR HELPER) RPR Nonreactive Nonreactive Blood 05/27/2024 1:29 PM DYE REEL OPERATOR HELPER 05/27/2024 1:43 PM DYE REEL OPERATOR HELPER Shannan Damon MD LAB MICROBIOLOGY - GENERAL ORDERABLES Final Result Performing Organization Address [facility] de Phone Number [facility] [place] [address] * (ABNORMAL) Hemoglobin A1c (05/01/2024 3:10 PM DYE REEL OPERATOR HELPER) [facility] Hgb A1C 5.7(H) 4.0 - 5.6 % Estimated Average Glucose 117 mg/dL [facility] Comment: The ADA recommends reporting an estimated Average Glucose (eAG) with all Hemoglobin A1c results using the equation derived from a study of 507 normal and diabetic adults. Minority populations were underrepresented and children were not included. (Diabetes Care 2020; 43(S1): S66-S76). The eAG is not equivalent to a fasting glucose. Blood 05/01/2024 3:10 PM DYE REEL OPERATOR HELPER 05/01/2024 5:34 PM DYE REEL OPERATOR HELPER Aure Delgado MD LAB BLOOD ORDERABLES Final Result Performing Organization Address [facility] Co de Phone Number [facility] [place] [address] * (ABNORMAL) Lipid panel (01/31/2024 2:25 PM CDT) [facility] Cholesterol 162 30 - 199 mg/dL Comment: Interpretive Data Ages < or = 19 years Acceptable: <170 mg/dL Borderline high: 170-199 mg/dL High: >or= 200 mg/dL Ages > or = 20 years Desirable: <200 mg/dL Borderline high: 200-239 mg/dL High: >or= 240 mg/dL Literature References: 1. Expert Panel on Integrated Guidelines for Cardiovascular Health and Risk Reduction in Children and Adolescents. Pediatrics 2011;128:S213 2. NCEP Expert Panel. Circulation 2004;110:227 Current Interpretive Data was last revised on 2017. Triglycerides 280(H) <=149 mg/dL [facility] Comment: Interpretive Data Ages < or = 9 years Acceptable: <75 mg/dL Borderline high: 75-99 mg/dL High: >or= 100 mg/dL Ages 10 to 20 years Acceptable: <90 mg/dL Borderline high: 90-129 mg/dL High: >or= 130 mg/dL Ages > or = 20 years Desirable: <150 mg/dL Borderline high: 150-199 mg/dL High: 200-499 mg/dL Very high: >or= 499 mg/dL Literature References: 1. Expert Panel on Integrated Guidelines for Cardiovascular Health and Risk Reduction in Children and Adolescents. Pediatrics 2011;128:S213 2. NCEP Expert Panel. Circulation 2004;110:227 Current Interpretive Data was last revised on 2017. HDL 48 >=40 mg/dL [facility] Comment: Interpretive Data Ages < or = 19 years Acceptable: >45 mg/dL Borderline low: 40-45 mg/dL Low: <40 mg/dL Ages > or = 20 years Desirable: >or= 60 mg/dL Low: <40 mg/dL Literature References: 1. Expert Panel on Integrated Guidelines for Cardiovascular Health and Risk Reduction in Children and Adolescents. Pediatrics 2011;128:S213 2. NCEP Expert Panel. Circulation 2004;110:227 Current Interpretive Data was last revised on 2017. LDL, calculated 69 <=129 mg/dL [facility] Comment: Interpretive Data Ages < or = 19 years Acceptable: <110 mg/dL Borderline high: 110-129 mg/dL High: >or= 130 mg/dL Ages > or = 20 years Optimal: <100 mg/dL Near optimal: 100-129 mg/dL Borderline high: 130-159 mg/dL High: >160 mg/dL Calculated using the Payne LDL-C estimating equation. This equation was implemented on 2023. Prior to this date LDL-C was estimated using the Friedewald equation. Literature References: 1. Expert Panel on Integrated Guidelines for Cardiovascular Health and Risk Reduction in Children and Adolescents. Pediatrics 2011;128:S213 2. NCEP Expert Panel. Circulation 2004;110:227 3. Elmer Davis et al. CESAR Cardiol. 2020 August 06;5(5):540-548. doi: 10.1001/[email or web address].2020.0013 Current Interpretive Data was last revised on 2023. Non-HDL Cholesterol 114 mg/dL [facility] Comment: Interpretive Data Ages < or = 19 years Acceptable: <120 mg/dL Borderline high: 120-144 mg/dL High: >145 mg/dL Ages > or = 20 years When triglycerides are >200 mg/dL, Non-HDL cholesterol is a secondary target of therapy with treatment goals that are 30 mg/dL greater than the LDL cholesterol target. Literature References: 1. Expert Panel on Integrated Guidelines for Cardiovascular Health and Risk Reduction in Children and Adolescents. Pediatrics 2011;128:S213 2. NCEP Expert Panel. Circulation 2004;110:227 Current Interpretive Data was last revised on 2017. Chol/HDL ratio 3 [facility] Blood 01/31/2024 2:25 PM CDT 01/31/2024 7:27 PM CDT Aure Delgado MD LAB BLOOD ORDERABLES Final Result [facility] Department [place] [address] * High Risk HPV DNA Detection with Genotyping (Molecular component) (01/28/2024 4:04 PM CDT) Pathologist [facility] HPV HR 16 Not Detected Not Detected [facility] HPV HR 18 Not Detected Not Detected [facility] HPV HR Non 16/18 Not Detected Not Detected [facility] Comment: Interpretive Data Nucleic acid amplification for detection of high-risk Human Papilloma virus (HPV) is performed by the Maral Myalin 6800 HPV test. This assay specifically detects HPV-16 and HPV-18 genotypes. The following HPV genotypes are detected as high-risk HPV: HPV-31, 33, 35, ,39, 45, 51, 52, 56, 58, 59, 66, and 68. This assay has been approved by the [place] Food and Drug Administration for detection of HPV in cervical specimens collected by a physician using an endocervical brush/spatula or cervical broom and placed in the ThinPrep Pap Test PreservCyt collection containers. The performance characteristics of this test have been verified by the [facility] Molecular Infectious Disease laboratory. Correlate with separately reported cytology results, as applicable. Interpretive data last revised 22 Endocervical 01/28/2024 4:04 PM CDT 01/29/2024 3:57 PM CDT Narrative [facility] - 01/30/2024 4:45 AM CDT Clinical history and diagnosis->Supervisision of Highrisk Number of vials->1 Testing type->Screening Last menstrual period (date if known)-> Menstrual status-> Calli Estrada NP LAB BODY FLUIDS AND STOOLS ORDERABLES Final Result Performing Organization Address [facility] Co de Phone Number [facility] [place] [address] [facility] * G6PD qualitative with reflex to quantitative (12/30/2023 10:45 AM CDT) G6PD Normal Normal Comment: Interp data: G6PD activity should be interpreted in the context of a patient's hematocrit. Hematocrit < 20% may lead to a falsely deficient result, while hematocrit > 50% may lead to a falsely normal result. Current interpretive data was last revised on 2019. Blood 12/30/2023 10:4 5 AM CDT 12/30/2023 11:42 AM CDT Valeri Zarco MD LAB BLOOD ORDERABL ES Final Result Performing Organization Address City/[facility]/ZIP Co de Phone Number [facility] [place] [address] * T-SPOT.TB Blood (12/30/2023 10:45 AM CDT) Pathologist [facility] T-SPOT.TB Negative SeeBelow Comment: Normal Value: Negative A negative test result does not exclude the possibility of exposure to or infection with Mycobacterium tuberculosis (M. tuberculosis). Patients with recent exposure to TB infected individuals exhibiting a negative T-SPOT.TB result should be considered for retesting within 6 weeks or if other relevant clinical symptoms indicate. Results from T-SPOT.TB testing must be used in conjunction with each individual's epidemiological history, current medical status, and results of other diagnostic evaluations. The T-SPOT.TB test is qualitative and results are reported as positive, borderline or negative, given that the test controls perform as expected. In line with the Centers for Disease Control and Prevention's 2010 recommendation to report quantitative measurements alongside the qualitative result, the laboratory provides spot counts for informational purposes only. The T-SPOT.TB test should not be interpreted as a quantitative test. T-SPOT.TB Panel A Spot Count 1 [facility] T-SPOT.TB Panel B Spot Count 2 [facility] T-SPOT.TB Negative Control Passed [facility] T-SPOT.TB Positive Control Passed [facility] Comment: Test Performed at: [facility] [address] [place] [id number] THEODORE MARTE,PHD Blood 12/30/2023 10:4 5 AM CDT 12/30/2023 12:02 PM CDT Valeri Zarco MD LAB MICROBIOLOGY - GENERAL ORDERABLES Final Result [facility] [place] [address] * Hepatitis C antibody Blood (12/30/2023 10:45 AM CDT) [facility] Hep C Ab Nonreactive Nonreactive Comment:Antibodies to HCV no t detected. Does NOT exclude the possibility of recent exposure to HCV. Current interpretive data was last revised on 21 Blood 12/30/2023 10:4 5 AM CDT 12/30/2023 11:42 AM CDT us Valeri Zarco MD LAB MICROBIOLOGY - GENERAL ORDERABLES Final Result Performing Organization Address City/[facility]/ZIP Co de Phone Number [facility] [place] [address] * (ABNORMAL) Hepatitis A antibody, IgG (08/21/2018 11:09 AM CDT) Pathologist [facility] Hep A IgG Reactive(A ) Nonreactive [facility] Blood specimen (specimen) 08/21/2018 11:09 AM CDT 08/21/2018 12:45 PM CDT Narrative [facility] - 08/21/2018 2:52 PM CDT us Charley Berry NP LAB BLOOD ORDERABLES Final Resu lt Performing Organization Address [facility] Co de Phone Number [facility] Department [place] [address] * (ABNORMAL) Urinalysis reflex to microscopic and culture Urine (08/21/2018 11:09 AM CDT) Pathologist [facility] Color, ur Yellow Yellow [facility] Clarity, ur Cloudy(A) Clear [facility] Specific gravity, ur 1.006(L) 1.010 - 1.025 [facility] pH, urine 6 [facility] Protein, ur ql Negative Negative [facility] Glucose, ur ql Negative Negative [facility] Ketones, ur Negative Negative [facility] Bilirubin, ur Negative Negative [facility] Blood, ur Negative Negative [facility] Urobilinogen, ur <2.0 <2.0 mg/dL [facility] Nitrite, ur Negative Negative [facility] Leukocyte esterase, ur 3+(A) Negative [facility] Urine 08/21/2018 11:0 9 AM CDT 08/21/2018 12:45 PM CDT Narrative [facility] - 08/21/2018 1:28 PM CDT Urine pH is affected by diet, medications, systemic acid-base disturbances, and renal tubular function. pH may affect urinary stone formation. For example, urine pH below 6.0 may help reduce the tendency for calcium phosphate stones and pH greater than 6.0 may reduce the tendency for uric acid stone formation. Source: [employer]. Last revised 04-18-2017 us Charley Berry NP LAB MICROBIOLOGY - GENERAL GLADIS GAN Final Result Performing Organization Address City/State/[facility] Co de Phone Number [facility] Department [place] [address] from Last 3 Months or Most Recently Relevant to Health Maintenance Insurance [place] [employer] [facility] [id number] [address] [employer] (PART-C) [address] [place] [phone] [facility] Advance Directives For more information, please contact: [phone] * Full Code (Latest Code Status on File) Date Activated Date Inactivated Comments 06/10/2024 2:38 PM 06/16/2024 10:55 PM * Full Code Date Activated Date Inactivated Comments 05/27/2024 3:53 PM 06/10/2024 2:38 PM Care Teams Piece Dyeing Machine Tender Relationship Specialty Start Date End Date No, Physician PCP - General 03/06/17 Kelle Santos, RN Registered Nurse 06/19/22 Charley Mendoza, BS Maliha Mathew Physics Department Chair Infectious Diseases 01/22/24 Kelle Santos, RN Registered Nurse Pediatric Infectious Disease 04/30/24 Camila Yuen Physics Department Chair 04/15/20 Joaquin Bishop Physics Department Chair Infectious Diseases 07/04/20
[2025-01-08 20:09] VITALS: BP 162/91; PULSE 97; RESP 18; TEMP 36.3; O2SAT 100
--- NOTE | 2025-01-08 20:13 | ECG_ITS ---
Test Date: 2025-01-08 20:16:17 Measurements Intervals [place] Rate: 88 P: 42 VA: 166 QRS: 5 QRSD: 97 T: 46 QT: 357 QTc: 434 Interpretive Statements SINUS RHYTHM BORDERLINE T WAVE ABNORMALITY- ANTERIOR LEADS BORDERLINE ECG No previous ECG available for comparison Electronically Signed On 01-09-2025 06:54:48 CDT by Fred Wood D.O.
[2025-01-08 22:10] VITALS: BP 125/87; PULSE 88; RESP 16; O2SAT 97
--- OUTSIDE RECORDS SUMMARY | 2025-01-08 23:29 | XMS_ITS | Encounter Summary ---
Author Organization [facility] Address [address] [place] [address] Phone Care Team Providers Care Personal Driver Name Role Phone No, Physician Primary Care Provider [phone] Kelle Santos RN Unavailable Unavailable Charley Mendoza Unavailable Unavailkaren e Kelle Santos RN Unavailable Unavailable Encounter Details Date Type Department Care Team (Late st Contact Info) Description 12/24/2024 Telephone [facility] Medicine Infectious Diseases [address] [place] [address] [address] [place] [address] Jenny Nevarez RMA Social History [...] often do you attend chur ch or samaritan services? Never 06/03/2024 Do you belong to any clubs o r organizations such as hindu groups, unions, fraternal or athletic groups, or [...] things needed for daily living? No 06/03/2024 Adams Depression Scale Answer Date Recorded Adams Depression Scale Total 3 07/22/2024 The thought [...] any time in the past 12 [facility], were you homeless or living in a [place] (including now)? No 06/03/2024 Personal Safety Answer Date Recorded Have you ever been in or are you currently in a harmful physical or emotional relationship or is someone making you feel afraid or unsafe? 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 Please call [phone] documented in this encounter Plan of Treatment Not on file documented as of this encounter Visit Diagnoses Not on filedocumented in this encounter Care Teams Personal Driver Relationship Specialty Start Date End Date No, Physician PCP - General 03/06/17 Kelle aSntos, RN Registered Nurse 06/19/22 Charley Mendoza, BS Archie Mathew Gambling Supervisor Infectious Diseases 01/22/24 Kelle Santos, RN Registered Nurse Pediatric Infectious Disease 04/30/24 Camila Yuen Gambling Supervisor 04/15/20 Joaquin Bishop Gambling Supervisor Infectious Diseases 07/04/20 documented as of this encounter
--- OUTSIDE RECORDS SUMMARY | 2025-01-08 23:29 | XMS_ITS | Clinical Summary ---
Author Organization [facility] Address [address] [place] [address] Care Team Providers Care Information Analyst Name Role Phone Unavailable Primary Care Provider Unavailabl e Source Comments [facility],non-owned Affiliates and Associated Physician Practices is amultiple site organization consisting of ambulatory clinics and hospital sitesin [place], [place], [place] and [place]. This disclosure is being madepursuant to the Care Everywhere program and may not contain all information available regarding this patient. 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 [address]
--- OUTSIDE RECORDS SUMMARY | 2025-01-08 23:29 | XMS_ITS | Encounter Summary ---
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 Gender Identity Female 10/11/2017 12:45 PM CDT Sexual Orientation Straight 08/21/2018 2: 27 PM CDT documented as of this encounter Plan of Treatment Not on file documented as of this encounter Procedures Procedure Name Priority Date/Time Associated Diagnosis Comments OBSTETRIC/GYNECOLOGY ULTRASONOGRAPHY REPORT 05/02/2017 10:11 AM SURVEY RESEARCH MANAGER OBSTETRIC/GYNECOLOGY ULTRASONOGRAPHY REPORT 04/11/2017 9:41 AM SURVEY RESEARCH MANAGER documented in this encounter Results * OBSTETRIC/GYNECOLOGY ULTRASONOGRAPHY REPORT (05/02/2017 10:11 AM SURVEY RESEARCH MANAGER) Anatomical Region Laterality Modality Ultrasound us Provider Scanning IMG OB US PROCEDURES Final Res ult * OBSTETRIC/GYNECOLOGY ULTRASONOGRAPHY REPORT (04/11/2017 9:41 AM SURVEY RESEARCH MANAGER) Anatomical Region Laterality Modality Ultrasound us Provider Scanning IMG OB US PROCEDURES Final Res ult documented in this encounter Visit Diagnoses Not on filedocumented in this encounter Additional Health Concerns 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 03/27/201411/23 5:00 AM CDT documented as of this encounter Care Teams Mathematical Statistician Relationship Specialty Start Date End Date No, Physician PCP - General 03/06/17 Kelle Santos, RN Registered Nurse 06/19/22 Michelle Arboleda, RN Registered Nurse Pediatric Infectious Disease 01/06/24 04/29/24 Charley Mendoza, BS Archie Mathew Safety Coordinator Infectious Diseases 01/22/24 Kelle Santos, RN Registered Nurse Pediatric Infectious Disease 04/30/24 Archie LUNA [facility] Safety Coordinator Infectious Diseases 10/04/17 04/14/20 Camila Yuen Safety Coordinator 04/15/20 Joaquin Bishop Safety Coordinator Infectious Diseases 07/04/20 documented as of this encounter
[2025-01-08 23:36] VITALS: BP 125/81; PULSE 79; RESP 18; TEMP 36.7; O2SAT 100
--- NOTE | 2025-01-08 23:42 | PC.NURSE ---
pt taken to x-ray before blood could be drawn
[2025-01-09 00:23] VITALS: BP 115/83; PULSE 77; RESP 18; TEMP 36.6; O2SAT 99
[2025-01-09 00:24] LABS: Hematocrit 36.5 % (37.0-47.0); Hemoglobin 13.4 g/dL (12.0-15.0); Immature Granulocyte Percent A 0.2 % (0-0.5); Lymphocytes Absolute Auto 2.22 K/mm3 (0.9-3.2); Mean Corpuscular HGB Conc 36.7 g/dl (32-36); Mean Corpuscular Hemoglobin 32.8 pg (26-34); Mean Corpuscular Volume 89.5 fl (80-100); Nucleated Red Blood Cells Absolute Auto 0.000 K/mm3 (0.0-0.012); Nucleated Red Blood Cells Perc 0.0 % (0.0-0.2); Platelet Count Result 250 k/mm3 (150-375); Red Blood Count 4.08 M/mm3 (4.2-5.4); White Blood Count 5.9 K/mm3 (4.5-10.0)
--- NOTE | 2025-01-09 00:28 | ED_ITS ---
HPI - Recheck/Abnormal Lab/Rx General Chief Complaint: Recheck/Abnormal Lab/Rx Stated Complaint: high bp Time Seen by Provider: 01/08/25 23:08 History of Present Illness HPI narrative: Patient is a 39-year-old female who presents to the ER with concerns of elevated blood pressure. She reports for the last 2 days she has been experiencing nausea, dizziness, and palpitations. Patient reports earlier today she had a slight headache. She also endorses tiredness. Patient denies any lower extremity edema, chest pain, or shortness of breath. She reports she drinks approximately 1 cup of coffee per day. Patient drinks approximately 1 to 1.5 L of water per day. She endorses a history of preeclampsia with her latest , 7 months ago. Related Data Allergies Allergy/AdvReac Type Severity Reaction Status Date / Time No Known Allergies Allergy Verified 01/08/25 20:13 Review of Systems 2 Review of Systems: All systems reviewed & are unremarkable except as noted in HPI and below Exam 2 Narrative: GENERAL: Well appearing, well-nourished, non-toxic, in no acute distress. HEAD: Normocephalic, atraumatic. NECK: Supple. No adenopathy, no masses. RESPIRATORY: Airway patent, respirations nonlabored. Clear to auscultation bilaterally, no rales, rhonchi, wheezing. CARDIOVASCULAR: Regular rate and rhythm without murmurs, rubs, or gallops. Peripheral pulses 2+ and equal bilaterally. ABDOMINAL: Soft, nontender, nondistended, no hepatosplenomegaly. Normoactive BS. MUSCULOSKELETAL: Moves all extremities. Strength/ROM intact without gross deformities. SKIN: Warm, dry, normal color. No rashes. NEURO: A&O X3. Speech clear. Cranial nerves II-XII intact. No ataxic movements. PSYCHIATRIC: Appropriate mood and affect. Normal interaction. Course Vital Signs Vital signs: Vital Signs Temperature 36.3 C L 01/08/25 20:09 Pulse Rate 97 01/08/25 20:09 Respiratory Rate 18 01/08/25 20:09 Blood Pressure 162/91 H 01/08/25 20:09 Pulse Oximetry 100 01/08/25 20:09 Oxygen Delivery Room Air 01/08/25 20:09 Temperature 36.6 C 01/09/25 00:23 Pulse Rate 77 01/09/25 00:23 Respiratory Rate 18 01/09/25 00:23 Blood Pressure 115/83 01/09/25 00:23 Pulse Oximetry 99 01/09/25 00:23 Oxygen Delivery Room Air 01/08/25 20:09 MDM - Recheck/Abnormal Lab/Rx MDM Narrative Medical decision making narrative: Patient is a 39-year-old female who presents to the ER with concerns of elevated blood pressure. She reports for the last 2 days she has been experiencing nausea, dizziness, and palpitations. Patient reports earlier today she had a slight headache. She also endorses tiredness. Patient denies any lower extremity edema, chest pain, or shortness of breath. She reports she drinks approximately 1 cup of coffee per day. Patient drinks approximately 1 to 1.5 L of water per day. She endorses a history of preeclampsia with her latest , 7 months ago. Labs Ordered: CBC, CMP, troponin, D-dimer, UA, proBNP Imaging Ordered: Chest x-ray Medications Ordered: None necessary Results: Patient's urinalysis indicates patient has UTI. Her chemistry indicates a creatinine of 0.60, glucose of 132, AST of 56, ALT of 50. Patient's troponin was less than 0.012. Her pro BMP was less than 20. Diagnosis: Primary hypertension, urinary tract infection Risks: HEART score: low risk HEART Score for Major Cardiac Events from [employer] on 01/09/2025 All calculations should be rechecked by clinician prior to use RESULT SUMMARY: 2 points Low Score (0-3 points) Risk of MACE of 0.9-1.7%. INPUTS: History ?> 1 = Moderately suspicious EKG ?> 0 = Normal Age ?> 0 = <45 Risk factors ?> 1 = 1-2 risk factors Initial troponin ?> 0 = <Normal limit Patient Education/Shared MDM: Results of lab work and imaging shared with patient. Patient strongly advised to maintain hydration status upon discharge and follow-up with her PCP as soon as possible. She will be discharged home with a prescription for the blood pressure medication she took previously, labetalol. Strict return precautions provided. Patient verbalized understanding and is in agreement with plan. Vital signs stable at time of discharge. All questions answered. Differential Diagnosis Differential diagnosis: Likely encounter for medication refill and other (Hypertension, urinary tract infection, pulmonary embolism, congestive heart failure) Lab Data Attestation: I reviewed the patient's lab results. 01/09/25 00:18 01/09/25 00:18 Labs: Lab Results 01/09/25 01/09/25 Range/Units 00:18 00:32 WBC 5.9 (4.5-10.0) K/mm3 RBC 4.08 L (4.2-5.4) M/mm3 Hgb 13.4 (12.0-15.0) g/dL Hct 36.5 L (37.0-47.0) % MCV 89.5 (80-100) fl MCH 32.8 (26-34) pg MCHC 36.7 H (32-36) g/dl RDW 13.2 (11.5-14.5) % Plt Count 250 (150-375) k/mm3 MPV 9.9 (7.4-10.4) fl Immature Gran % (Auto) 0.2 (0-0.5) % Neut % (Auto) 40.8 L (45.5-73.1) % Lymph % (Auto) 37.4 (18.3-44.2) % [place] % (Auto) 11.8 H (2.6-8.5) % Eos % (Auto) 9.1 H (0-4.4) % Baso % (Auto) 0.7 (0.2-1.2) % Lymph # (Auto) 2.22 (0.9-3.2) K/mm3 [place] # (Auto) 0.7 H (0.1-0.6) K/mm3 Eos # (Auto) 0.5 H (0-0.3) K/mm3 Baso # (Auto) 0.0 (0.0-0.1) K/mm3 Abs Immat Gran (auto) 0.01 (0.00-0.031) K/mm3 Absolute Neuts (auto) 2.4 (1.3-6.7) K/mm3 Absolute Nucleated RBC 0.000 (0.0-0.012) K/mm3 Nucleated RBC % 0.0 (0.0-0.2) % D-Dimer 0.34 (<0.48) ug/mL Sodium 137 (137-145) mmol/L Potassium 3.7 (3.4-5.0) mmol/L Chloride 102 (98-107) mmol/L Carbon Dioxide 26 (22-30) mmol/L Anion Gap 9 (4-12) mmol/L BUN 12 (7-17) mg/dL Creatinine 0.60 L (0.7-1.0) mg/dL Estim Creat Clear Calc 96 ml/min Estimated GFR > 60 (59 - ) Glucose 132 H (65-110) mg/dL Calcium 9.2 (8.4-10.2) mg/dL Total Bilirubin 1.2 (0.2-1.3) mg/dL AST 56 H (14-36) U/L ALT 50 H (6-35) U/L Alkaline Phosphatase 97 (38-126) U/L Troponin I < 0.012 (0.000-0.034) ng/mL NT-Pro-B Natriuret Pep < 20 (19.9-100) pg/mL Total Protein 8.2 (6.3-8.2) g/dL Albumin 4.5 (3.5-5.1) g/dL Urine Color Yellow (Yellow) Urine Appearance Cloudy H (Clear) Urine pH 6.5 (5.0-9.0) Ur Specific [place] 1.023 (1.001-1.035) Urine Protein 1+ H (Negative) mg/dL Urine Glucose (UA) Negative (Negative) mg/dL Urine Ketones Trace H (Negative) mg/dL Ur Blood (Man) Negative (Negative) Urine Nitrate Negative (Negative) Urine Bilirubin Negative (Negative) Urine Urobilinogen 1.0 (<2.0) mg/dL Leukocyte Esterase Rfl 1+ H (Negative) MARISELA/UL Urine RBC 0-2 (0-2) /hpf Urine WBC 6-10 H (0-3) /hpf Ur Squamous Epith Cells Few (Few) /hpf Urine Bacteria Rare /hpf Urine Casts 0-2 Imaging Data Attestation: I personally reviewed and interpreted this imaging study as follows: Discharge Plan Discharge Clinical Impression: Essential (primary) hypertension, Urinary tract infection, Heart palpitations Patient Disposition: Home Condition: Stable Instructions: Antibiotic Form, Urinary Tract Infection in Women (ED), Hypertension (ED) Additional Instructions: Please return to the ER with any worsening symptoms. Follow-up with your primary care provider as soon as possible. Take all medications as prescribed, including regularly scheduled medications. Please complete your full dose of antibiotics. Remember to drink lots of water. Patient Language: Colombian Prescriptions: New labetalol 400 mg tablet 400 mg PO Q12H Qty: 60 0RF Follow-up/Referrals: Jonathan Abel MD [Physician, Family Practice] Referral Note: primary care provider UNKNOWN,DOCTOR [Primary Care Provider] Time of Disposition: 03:19
[2025-01-09 00:38] LABS: Alanine Aminotransferase 50 U/L (6-35); Albumin Level 4.5 g/dL (3.5-5.1); Alkaline Phosphatase 97 U/L (38-126); Anion Gap 9 mmol/L (4-12); Aspartate Amino Transferase 56 U/L (14-36); Bilirubin,Total 1.2 mg/dL (0.2-1.3); Blood Urea Nitrogen 12 mg/dL (7-17); Calcium 9.2 mg/dL (8.4-10.2); Carbon Dioxide 26 mmol/L (22-30); Chloride 102 mmol/L (98-107); Estimated CRCL calculation 96 ml/min; Estimated Glomerular Filt Rate > 60; Glucose 132 mg/dL (65-110); Potassium 3.7 mmol/L (3.4-5.0); Sodium 137 mmol/L (137-145); Total Protein 8.2 g/dL (6.3-8.2)
[2025-01-09 00:44] LABS: Add Urine Microscopic? YES; Appearance Urine Cloudy (Clear); Glucose Urine UA Negative (Negative); Leukocyte Esterase Ur 1+ LEU/UL (Negative); Nitrate Urine Negative (Negative); Non Pathogenic Casts 0-2; Specific Grav Ur 1.023 (1.001-1.035)
[2025-01-09 00:48] LABS: NT Pro B Type Natriuretic Pept < 20 pg/mL (19.9-100); Troponin I < 0.012 ng/mL (0.000-0.034)
[2025-01-09] MEDS: SULFAMETHOXAZOLE/TRIMETHOPRIM 800/160 MG DS TABLET 1 TAB PO (03:40)
[2025-01-09 03:42] VITALS: BP 123/80; PULSE 62; RESP 18; O2SAT 99
== END 2025-01-09 03:43 | disposition home or self-care (01) ==
PROVIDERS: Student in an Organized Health Care Education/Training Program; Emergency Provider Registered Nurse
DX: I10 Essential (primary) hypertension (principal); N39.0 Urinary tract infection, site not specified; R00.2 Palpitations; R94.31 Abnormal electrocardiogram [ECG] [EKG]
CPT/HCPCS: 36415; 71046; 80053; 81001; 83880; 84484; 85025; 85380; 87086; 93005; 99284; A9270